=== PATIENT | male | born 1950 | race Caucasian/White ===

== ENCOUNTER 2019-12-21 12:06 | Outpatient (REF) | payer MEDICARE, SELFPAY | END 2019-12-21 12:07 | disposition home or self-care (01) | LOC: HO.WFDLDS 12:06 | PROVIDERS: Visit Provider Internal Medicine | DX: Z20.828 Contact with and (suspected) exposure to other viral communicable diseases (principal) | CPT/HCPCS: 87635 ==

== ENCOUNTER 2020-11-03 08:46 | Outpatient (REF) | payer MEDICARE, SELFPAY ==
[2020-11-03 10:58] LABS: MANUAL DIFF FLAG NO
[2020-11-03 11:05] LABS: Basophils Percent Auto 0.5 % (0-2); Eosinophils Absolute Auto 0.2 X10*3/uL (0.0-0.4); Eosinophils Percent Auto 3.3 % (0-4); Hematocrit 37.7 % (42-52); Hemoglobin 13.2 g/dl (14.0-18.0); Imm Gran Abs Auto 0.01 X10*3/uL (0.00-0.03); Imm Gran Pct Auto 0.2 % (0.0-0.4); Lymphocytes Absolute Auto 2.4 X10*3/uL (1.2-4.9); Lymphocytes Percent Auto 41.4 % (20-40); Mean Corpuscular Hemoglobin 31.1 pg (27.0-33.0); Mean Corpuscular Volume 88.7 fL (80-98); Mean Platelet Volume 10.7 fL (9.4-12.4); Monocytes Absolute Auto 0.4 X10*3/uL (0.1-1.2); Monocytes Percent Auto 6.3 % (2-11); Neutrophils Absolute Auto 2.7 X10*3/uL (2.0-8.3); Neutrophils Percent Auto 48.3 % (45-73); Platelet Count 182 X10*3/uL (160-400); Red Blood Count 4.25 X10*6/uL (4.60-5.80); Red Cell Distribution Width 13.7 % (11.0-16.0); White Blood Count 5.7 X10*3/uL (4.8-10.8)
[2020-11-03 11:09] LABS: Estimated Average Glucose 120 mg/dL; Hemoglobin A1c % 5.8 %
[2020-11-03 11:33] LABS: Alanine Aminotransferase 20 U/L (0-40); Albumin Level 4.3 g/dL (3.5-5.0); Alkaline Phosphatase 75 U/L (39-117); Anion Gap 11 (12-20); Aspartate Amino Transferase 21 U/L (5-37); Blood Urea Nitrogen 18 mg/dL (9-16); Calcium 9.6 mg/dL (8.4-10.2); Carbon Dioxide 25 mmol/L (22-29); Chloride 108 mmol/L (96-108); Estimated Glomerular Filt Rate > 60; Glucose Random 118 mg/dL (60-115); Potassium 4.6 mmol/L (3.3-5.1); Sodium 139 mmol/L (135-145); Total Protein 6.7 g/dL (6.5-8.0)
[2020-11-03 11:47] LABS: HIV AB/AG Nonreactive (Nonreactive); HIV Num 1 0.06 S/CO (0.00-0.99)
[2020-11-03 11:55] LABS: Prostate Specific Antigen Scr 0.31 ng/mL (<0.05-4.0); TSH reflex Free T4 0.86 uIU/mL (0.32-4.0)
[2020-11-04 04:54] LABS: Syphilis Screen Nonreactive (Nonreactive)
== END 2020-11-03 08:47 | disposition home or self-care (01) ==
LOC: HO.WFDLDS 08:46
PROVIDERS: Visit Provider Family Medicine
DX: Z00.00 Encounter for general adult medical examination without abnormal findings (principal); Z12.5 Encounter for screening for malignant neoplasm of prostate; Z11.4 Encounter for screening for human immunodeficiency virus [HIV]; R41.3 Other amnesia; R42 Dizziness and giddiness
CPT/HCPCS: 36415; 80053; 83036; 84153; 84443; 85025; 86780; 87389

== ENCOUNTER 2020-11-25 14:32 | Outpatient (REF) | payer MEDICARE, SELFPAY | END 2020-11-25 14:33 | disposition home or self-care (01) | LOC: HO.LNP 14:32 | PROVIDERS: Visit Provider Family Medicine | DX: Z20.822 Contact with and (suspected) exposure to COVID-19 (principal) | CPT/HCPCS: U0003; U0005 ==

== ENCOUNTER 2020-11-29 10:16 | Outpatient (REF) | payer MEDICARE, SELFPAY ==
[2020-11-29 13:58] LABS: MANUAL DIFF FLAG NO
[2020-11-29 14:05] LABS: Basophils Percent Auto 0.3 % (0-2); Eosinophils Absolute Auto 0.2 X10*3/uL (0.0-0.4); Eosinophils Percent Auto 3.1 % (0-4); Hematocrit 35.9 % (42-52); Hemoglobin 12.7 g/dl (14.0-18.0); Imm Gran Abs Auto 0.02 X10*3/uL (0.00-0.03); Imm Gran Pct Auto 0.3 % (0.0-0.4); Lymphocytes Absolute Auto 2.3 X10*3/uL (1.2-4.9); Lymphocytes Percent Auto 37.4 % (20-40); Mean Corpuscular HGB Conc 35.4 g/dl (31.0-36.0); Mean Corpuscular Hemoglobin 32.2 pg (27.0-33.0); Mean Corpuscular Volume 90.9 fL (80-98); Mean Platelet Volume 10.6 fL (9.4-12.4); Monocytes Absolute Auto 0.5 X10*3/uL (0.1-1.2); Monocytes Percent Auto 7.6 % (2-11); Neutrophils Absolute Auto 3.1 X10*3/uL (2.0-8.3); Neutrophils Percent Auto 51.3 % (45-73); Platelet Count 172 X10*3/uL (160-400); Red Blood Count 3.95 X10*6/uL (4.60-5.80); Red Cell Distribution Width 14.3 % (11.0-16.0); White Blood Count 6.1 X10*3/uL (4.8-10.8)
[2020-11-29 14:27] LABS: Anion Gap 12 (12-20); Blood Urea Nitrogen 15 mg/dL (9-16); Calcium 9.4 mg/dL (8.4-10.2); Carbon Dioxide 25 mmol/L (22-29); Chloride 108 mmol/L (96-108); Estimated Glomerular Filt Rate > 60; Glucose Random 120 mg/dL (60-115); Iron 92 mcg/dL (45-160); Percent Iron Saturation 22 % (15-50); Potassium 4.2 mmol/L (3.3-5.1); Sodium 141 mmol/L (135-145); Total Iron Binding Capacity 409 mcg/dL (228-428); Unsaturated Iron Binding 317 ug/dL
[2020-11-29 14:48] LABS: Ferritin 10 ng/mL (20-250)
[2020-11-29 14:55] LABS: Folate 18.3 ng/mL (> or = 4.0); Vitamin B12 543 pg/mL (200-900)
== END 2020-11-29 10:17 | disposition home or self-care (01) ==
LOC: HO.WFDLDS 10:16
PROVIDERS: Visit Provider Family Medicine
DX: Z00.00 Encounter for general adult medical examination without abnormal findings (principal); E53.8 Deficiency of other specified B group vitamins; D64.9 Anemia, unspecified
CPT/HCPCS: 36415; 80048; 82607; 82728; 82746; 83540; 85025

== ENCOUNTER 2021-01-09 12:43 | Outpatient (REF) | payer MEDICARE, SELFPAY ==
--- NOTE | ~2021-01-09 | CT_ITS ---
EXAMINATION: CT ABDOMEN AND PELVIS WITH CONTRAST CLINICAL INFORMATION: Hemolytic anemia. Question lymphoma. COMPARISON: None TECHNIQUE: Multidetector volumetric images were obtained from the superior aspect of the liver through the pubic symphysis following administration 85 mL of Omnipaque 350 intravenous contrast. Sagittal and coronal reformatted images were obtained on the technologist's workstation. Oral contrast: Yes This CT examination was performed using dose optimization techniques as appropriate, variously including the following: *Automated exposure control *Adjustment of mA and/or kV according to patient size (this includes techniques or standardized protocols for targeted exams where dose is matched to indication/reason for exam; i.e. extremities or head) *Use of iterative reconstruction technique DLP: 362 mGy-cm FINDINGS: LUNG BASES: There are cysts or emphysematous change in the posterior peripheral left lower lobe. The lung bases are otherwise unremarkable. LIVER, GALLBLADDER, AND BILIARY TREE: The liver is normal in size, shape, and attenuation. No focal hepatic lesion or biliary ductal dilatation is present. The gallbladder is unremarkable with no evidence of radiopaque gallstones, gallbladder wall thickening, or obvious pericholecystic inflammatory changes. PANCREAS: Unremarkable. SPLEEN: Unremarkable. ADRENAL GLANDS: Unremarkable. KIDNEYS AND URETERS: The kidneys are normal in size, shape, and attenuation. No hydronephrosis, hydroureter, or calculi seen. No perinephric stranding. BLADDER: Unremarkable. GASTROINTESTINAL TRACT: The small and large bowel are unremarkable. The appendix is unremarkable. ABDOMINAL WALL: No significant hernia is appreciated. LYMPH NODES: Normal. VASCULAR: Unremarkable. PELVIC VISCERA: Unremarkable. OSSEOUS STRUCTURES: There are degenerative changes of the spine and curvature of the lumbar spine to the left. There is a large lytic expansile lesion in the right iliac bone. This has a heterogeneous matrix and question some calcification. No associated soft tissue mass is seen. This measures 6 x 7 x 9 cm in transverse AP and longitudinal dimension. CT/CT abdomen pelvis w con IMPRESSION: No lymphadenopathy. Normal-size spleen. Large expansile lytic lesion in the right iliac bone suspicious for a neoplastic process. Primary bone neoplasm and myeloma, lymphoma and metastatic disease should be considered.
[2021-01-09] MEDS: iohexoL 350 MG/ML 100 ML INFUS..BTL 85 ML IV (15:43)
[2021-01-09] MEDS: Barium Sulfate Oral (Berry) 450 ML ORAL.SUSP 900 ML PO (15:44)
== END 2021-01-09 12:44 | disposition home or self-care (01) ==
LOC: HO.CT 12:43
PROVIDERS: PCP Family Medicine; Visit Provider Internal Medicine
DX: D64.9 Anemia, unspecified (principal); R63.4 Abnormal weight loss
CPT/HCPCS: 74177; Q9967

== ENCOUNTER 2021-01-13 12:30 | Outpatient (RCR) | payer MEDICARE, SELFPAY ==
[2020-12-09 13:16] VITALS: BP 108/72; PULSE 71; RESP 14; TEMP 36.3; O2SAT 98; BMI 27.0
--- NOTE | 2020-12-09 13:53 | PM.HEMONCCN ---
Subjective - Subjective Chief complaint: Anemia Patient: new to practice Consult date: 12/09/20 Primary Care Provider: Joshua Nicole MD HPI - Consult Narrative Reason for consult: Normocytic anemia Narrative: Jim Giraldo is a 70 year old male referred for evaluation of normocytic anemia. His main complaint has been postural dizziness and some fatigue. His blood pressure medications were adjusted and his dizziness improved but he continues to have fatigue. Blood work in October revealed mild normocytic anemia with a hemoglobin of 13.2, this declined to 12.7 gram/dL in November. He reports no other symptoms such as exertional shortness of breath, change in bowel habits, hematochezia or melena. He did change his diet significantly, cut back on animal protein and lost about 15 lb in the last 6 months. His weight however has been stable in the last several weeks. He denies any fever, chills, infections or changes to his medications. He is up-to-date with cancer screening. He has a history of BPH and is on medication for this. Review of Systems - Constitutional Reports no additional constitutional complaints, Reports fatigue, Denies malaise, Denies night sweats, Denies poor appetite - Cardiovascular Reports no additional cardiovascular complaints - Respiratory Reports no additional respiratory complaints - Gastrointestinal Reports no additional gastrointestinal complaints, Denies black, tarry stools, Denies change in bowel habits, Denies change in stools - Genitourinary Genitourinary: Reports no additional male genitourinary complaints - Musculoskeletal Reports no additional musculoskeletal complaints [facility] Family History: Family History (Last Updated 10/28/20 @ 10:50 by Fabienne Sol) Mother Mental health disorder Surgical History: Surgical History (Last Updated 10/28/20 @ 10:49 by Fabienne Sol) History of tonsillectomy Social History: Social History (Last Updated 12/09/20 @ 13:20 by Jessica Herrera) Living Situation History: Housing: House Alcohol History: Alcohol intake: current Alcohol History Details: Alcohol intake frequency: a few times a month Tobacco History: Patient Tobacco Use Status: Former Tobacco user Tobacco use type: Cigarette Cigarette Packs Per Day: 1 Smoke Quit Date: 2011 Substance Use History: Use of substances other than those prescribed or required for medical reasons: No Occupation Assessmet: Current occupational status: other 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 Home Medications and Allergies Home Medications Medication Instructions Recorded Confirmed Type aspirin 81 mg tablet,delayed 81 mg PO DAILY 01/07/20 12/09/20 History release (Adult Low Dose Aspirin) egooeuwm-kdu-mqiiy acid 300 1 tab PO DAILY 01/07/20 12/09/20 History mcg-lycopene 600 mcg-lutein 300 mcg tablet (Centrum Silver Ultra Men's) cetirizine 10 mg tablet (Zyrtec) 10 mg PO DAILY 12/09/20 12/09/20 History Allergies Allergy/AdvReac Type Severity Reaction Status Date / Time penicillamine Allergy Intermediate respiratory Verified 12/09/20 13:21 as child Physical Exam Vital signs: Vital Signs Temp 97.4 F 12/09/20 13:16 Pulse 71 12/09/20 13:16 Resp 14 12/09/20 13:16 BP 108/72 12/09/20 13:16 Pulse Ox 98 12/09/20 13:16 Intake & Output 12/08/20 12/09/20 12/09/20 18:59 06:59 18:59 Other: Weight 75.9 kg [place] Weight in Grams 00226 Weight 75.9 kg - Constitutional Present: no acute distress, average body habitus - Routine HEENT Exam Head: Present: normal inspection Eye: Present: PERRL - Routine Neck Exam Present: supple. Absent: lymphadenopathy, thyromegaly, swelling - Routine Respiratory Exam Present: CTAB - Routine Cardiovascular Exam Cardiovascular: Present: RRR, S1, S2 - Routine Abdominal Exam Present: normal bowel sounds, soft. Absent: organomegaly - Routine Extremities Exam Present: calf tenderness, normal inspection, pulses intact. Absent: pedal edema Hem/Onc Consult Result - Labs CBC & Chem 7: 12/09/20 13:59 Assessment and Plan Patient Active problem list reviewed?: Yes (1) Anemia Status: Acute Assessment and plan: 1. This is a pleasant 70-year-old male with mild normocytic anemia. His ferritin stores are decreased but he has normal iron studies. There is no signs/symptoms of blood loss. He has normal vitamin B12/folate levels, normal kidney and liver functions. Although he does consume alcohol it is not on a daily basis. No recent infections or use of antibiotics. No evidence of acute hemolysis. The only change has been significant dietary modifications and intentional weight loss of 10-15 lb in the last 6 months. His only symptom is mild fatigue. Hematological workup including serum protein electrophoresis, immunofixation, haptoglobin is pending. He takes pantoprazole chronically which can interfere with iron absorption. This could explain his low iron stores, as absorption can be impaired. Other possible diagnosis such as myelodysplastic syndrome, lymphoma and plasma cell dyscrasia in the differential diagnosis. If his repeat iron studies are low, trial of oral iron supplementation can be tried. Further recommendations to follow, I thank you very much for this consultation. Results will be discussed with the patient. - Time Spent With Patient Time Spent with Patient (in minutes): 35
[2020-12-09 14:03] LABS: MANUAL DIFF FLAG NO
[2020-12-09 14:15] LABS: Basophils Percent Auto 0.3 % (0-2); Eosinophils Absolute Auto 0.2 X10*3/uL (0.0-0.4); Eosinophils Percent Auto 2.5 % (0-4); Hematocrit 37.7 % (42-52); Hemoglobin 12.5 g/dl (14.0-18.0); Imm Gran Abs Auto 0.01 X10*3/uL (0.00-0.03); Imm Gran Pct Auto 0.2 % (0.0-0.4); Immature Retic Fraction 5.8 % (2.3-13.4); Lymphocytes Absolute Auto 1.4 X10*3/uL (1.2-4.9); Mean Corpuscular HGB Conc 33.2 g/dl (31.0-36.0); Mean Corpuscular Hemoglobin 29.2 pg (27.0-33.0); Mean Corpuscular Volume 88.1 fL (80-98); Mean Platelet Volume 9.6 fL (9.4-12.4); Monocytes Absolute Auto 0.5 X10*3/uL (0.1-1.2); Monocytes Percent Auto 7.8 % (2-11); Neutrophils Absolute Auto 4.3 X10*3/uL (2.0-8.3); Neutrophils Percent Auto 67.2 % (45-73); Platelet Count 164 X10*3/uL (160-400); Red Blood Count 4.28 X10*6/uL (4.60-5.80); Red Cell Distribution Width 13.8 % (11.0-16.0); Retic HGB Equivalent 33.2 pg (30.0-35.0); Reticulocyte Percent 0.9 % (0.5-1.8); Reticulocytes Absolute 0.039 X10*6/uL (0.026-0.095); White Blood Count 6.4 X10*3/uL (4.8-10.8)
[2020-12-09 14:30] LABS: Lactate Dehydrogenase 155 U/L (118-273)
--- NOTE | 2020-12-09 15:12 | MHC.HEMONCMA ---
Patient came in for a consult today, states that he is feeling okay. Clinical summary was reviewed and updated. Patient had labs and will have a telehealth appt in 2 weeks.
[2020-12-09 15:25] LABS: Iron 63 mcg/dL (45-160); Percent Iron Saturation 16 % (15-50); Total Iron Binding Capacity 391 mcg/dL (228-428); Unsaturated Iron Binding 328 ug/dL
[2020-12-12 13:51] LABS: Haptoglobin 16 mg/dL (43-212)
[2020-12-12 23:17] LABS: Prot Elec - Albumin 4.3 g/dL (3.8-4.8); Prot Elec - Alpha1 0.2 g/dL (0.2-0.3); Prot Elec - Alpha2 0.4 g/dL (0.5-0.9); Prot Elec - Beta 1 0.5 g/dL (0.4-0.6); Prot Elec - Beta 2 0.2 g/dL (0.2-0.5); Prot Elec - Gamma 0.9 g/dL (0.8-1.7); Prot Elec - Total Protein 6.4 g/dL (6.1-8.1)
[2020-12-13 11:47] LABS: IgA 98 mg/dL (70-320); IgG 1017 mg/dL (600-1540); IgM 193 mg/dL (50-300)
--- NOTE | 2020-12-27 10:24 | HO.HEMONCTE1 ---
Hem/Onc Clinic Telehealth - Telehealth Location of Provider rendering services: Office Location of Patient: Home Patient Identification confirmed using: Name, : Yes Telehealth Method: Telephone Patient verbally consented to treatment: Yes Patient verbally consented to billing insurance company: Yes Medical Summary - Medical Summary Date of Service: 12/27/20 Chief complaint: Scheduled follow-up Medical Summary: Diagnosis: Anemia Hematological workup in November revealed decreased haptoglobin but normal LDH and bilirubin levels. Mild normocytic anemia hemoglobin around 12.5 gram/dL. He had changed his diet significantly, cut back on animal protein and lost about 15 lb in 6 months prior to presentation. Interval History Interval history: This is scheduled tele visit for patient, to discuss results of blood work from his last visit. He continues to feel tired but denies any new problems. Home Medications and Allergies Home Medications Medication Instructions Recorded Confirmed Type aspirin 81 mg tablet,delayed 81 mg PO DAILY 01/07/20 12/27/20 History release (Adult Low Dose Aspirin) ebclrbpk-pjs-wvxop acid 300 1 tab PO DAILY 01/07/20 12/27/20 History mcg-lycopene 600 mcg-lutein 300 mcg tablet (Centrum Silver Ultra Men's) cetirizine 10 mg tablet (Zyrtec) 10 mg PO DAILY 12/09/20 12/27/20 History losartan 25 mg tablet 25 mg PO DAILY 12/27/20 12/27/20 History Allergies Allergy/AdvReac Type Severity Reaction Status Date / Time penicillamine Allergy Intermediate respiratory Verified 12/27/20 10:08 as child Exam Vital signs: Vital Signs Temp 97.4 F 12/09/20 13:16 Pulse 71 12/09/20 13:16 Resp 14 12/09/20 13:16 BP 108/72 12/09/20 13:16 Pulse Ox 98 12/09/20 13:16 Weight 75.9 kg Body Mass Index 27.0 Narrative: Patient not examined today - Constitutional Present: no acute distress, average body habitus - Routine HEENT Exam Head: Present: normal inspection - Routine Respiratory Exam Present: CTAB - Routine Cardiovascular Exam Cardiovascular: Present: RRR, S1, S2 - Routine Abdominal Exam Present: normal bowel sounds, soft. Absent: organomegaly - Routine Extremities Exam Present: calf tenderness, normal inspection, pulses intact. Absent: pedal edema Data - Labs CBC & Chem 7: 12/09/20 13:59 Labs: 10/01/21 13:59 Complete Blood Count Auto Diff Routine Haptoglobin Routine IRON PROFILE Routine Immunofixation Pnl, Serum Routine Lactate Dehydrogenase Routine Protein Electrophoresis, Serum Routine Reticulocyte Count Routine 12/09/20 15:13 Add Laboratory Test Routine Laboratory Last Values WBC 6.4 X10*3/uL (4.8-10.8) 12/09/20 13:59 RBC 4.28 X10*6/uL (4.60-5.80) L 12/09/20 13:59 Hgb 12.5 g/dl (14.0-18.0) L 12/09/20 13:59 Hct 37.7 % (42-52) L 12/09/20 13:59 MCV 88.1 fL (80-98) 12/09/20 13:59 MCH 29.2 pg (27.0-33.0) 12/09/20 13:59 MCHC 33.2 g/dl (31.0-36.0) 12/09/20 13:59 RDW 13.8 % (11.0-16.0) 12/09/20 13:59 Plt Count 164 X10*3/uL (160-400) 12/09/20 13:59 MPV 9.6 fL (9.4-12.4) 12/09/20 13:59 Immature Gran % (Auto) 0.2 % (0.0-0.4) 12/09/20 13:59 Neut % (Auto) 67.2 % (45-73) 12/09/20 13:59 Lymph % (Auto) 22.0 % (20-40) 12/09/20 13:59 [place] % (Auto) 7.8 % (2-11) 12/09/20 13:59 Eos % (Auto) 2.5 % (0-4) 12/09/20 13:59 Baso % (Auto) 0.3 % (0-2) 12/09/20 13:59 Lymph # (Auto) 1.4 X10*3/uL (1.2-4.9) 12/09/20 13:59 [place] # (Auto) 0.5 X10*3/uL (0.1-1.2) 12/09/20 13:59 Eos # (Auto) 0.2 X10*3/uL (0.0-0.4) 12/09/20 13:59 Baso # (Auto) 0.0 X10*3/uL (0.0-0.2) 12/09/20 13:59 Abs Immat Gran (auto) 0.01 X10*3/uL (0.00-0.03) 12/09/20 13:59 Absolute Neuts (auto) 4.3 X10*3/uL (2.0-8.3) 12/09/20 13:59 Absolute Nucleated RBC 0.000 X10*3/uL (0.0-0.012) 12/09/20 13:59 Nucleated RBC % (auto) 0.0 /100WBC (0.0-0.2) 12/09/20 13:59 Absolute Retic 0.039 X10*6/uL (0.026-0.095) 12/09/20 13:59 Percent Retic 0.9 % (0.5-1.8) 12/09/20 13:59 Immature Retic Fraction 5.8 % (2.3-13.4) 12/09/20 13:59 Retic Hgb Equivalent 33.2 pg (30.0-35.0) 12/09/20 13:59 Haptoglobin 16 mg/dL (43-212) L 12/09/20 13:59 Iron 63 mcg/dL (45-160) 12/09/20 13:59 TIBC 391 mcg/dL (228-428) 12/09/20 13:59 % Saturation 16 % (15-50) 12/09/20 13:59 Unsat Iron Binding 328 ug/dL 12/09/20 13:59 Lactate Dehydrogenase 155 U/L (118-273) 12/09/20 13:59 Total Protein (PEP) 6.4 g/dL (6.1-8.1) 12/09/20 13:59 Albumin (PEP) 4.3 g/dL (3.8-4.8) 12/09/20 13:59 Zgffe-1-Pivasqtqe 0.2 g/dL (0.2-0.3) 12/09/20 13:59 Cujxl-2-Ryottihno 0.4 g/dL (0.5-0.9) L 12/09/20 13:59 Phbc-4-Thmjhiyj 0.5 g/dL (0.4-0.6) 12/09/20 13:59 Baww-1-Glbizhlc 0.2 g/dL (0.2-0.5) 12/09/20 13:59 Gamma Globulins 0.9 g/dL (0.8-1.7) 12/09/20 13:59 Abnorm Protein Band 1 TNP 12/09/20 13:59 Abnorm Protein Band 2 TNP 12/09/20 13:59 Abnorm Protein Band 3 TNP 12/09/20 13:59 PEP Interpretation SEE NOTE 12/09/20 13:59 IgG Total 1017 mg/dL (600-1540) 12/09/20 13:59 IgA Total 98 mg/dL (70-320) 12/09/20 13:59 IgM 193 mg/dL (50-300) 12/09/20 13:59 RODRI Interpretation SEE NOTE 12/09/20 13:59 Assessment and Plan Patient Active problem list reviewed?: Yes (1) Anemia Status: Acute Assessment and plan: 1. This is a pleasant 70-year-old male with mild normocytic anemia. Hematological workup was all normal except for mildly reduced haptoglobin at 16 mg/dL. He has normal bilirubin level and LDH, probably mild hemolysis of unclear etiology. Submit Delfin test, flow cytometry for PNH, hepatitis serologies. HIV nonreactive. Acute infection, antibiotics/medications have been ruled out. Other possible diagnosis such as myelodysplastic syndrome and lymphoma are in the differential diagnosis. CT abdomen/pelvis with contrast has been ordered to look for hepatosplenomegaly or evidence of lymphoma. Follow-up in 2 weeks. - Time Spent With Patient Time Spent with Patient (in minutes): 15
--- NOTE | 2020-12-27 12:24 | MHC.HEMONCMA ---
Patient had a telehealth appt with the doctor, states he is doing well. Clinical summary was reviewed and updated. Patient will come in tomorrow for labs. Dr Walker ordered CTs for the patient which have been placed in order credit risk management director. I am not sure when he will come back for a follow up.
[2020-12-28 11:05] LABS: MANUAL DIFF FLAG NO
[2020-12-28 11:12] LABS: Basophils Percent Auto 0.3 % (0-2); Eosinophils Absolute Auto 0.2 X10*3/uL (0.0-0.4); Eosinophils Percent Auto 3.4 % (0-4); Hematocrit 37.3 % (42-52); Hemoglobin 12.8 g/dl (14.0-18.0); Imm Gran Abs Auto 0.02 X10*3/uL (0.00-0.03); Imm Gran Pct Auto 0.3 % (0.0-0.4); Lymphocytes Absolute Auto 1.8 X10*3/uL (1.2-4.9); Lymphocytes Percent Auto 30.1 % (20-40); Mean Corpuscular HGB Conc 34.3 g/dl (31.0-36.0); Mean Corpuscular Hemoglobin 29.7 pg (27.0-33.0); Mean Corpuscular Volume 86.5 fL (80-98); Mean Platelet Volume 9.7 fL (9.4-12.4); Monocytes Absolute Auto 0.4 X10*3/uL (0.1-1.2); Neutrophils Absolute Auto 3.4 X10*3/uL (2.0-8.3); Neutrophils Percent Auto 58.9 % (45-73); Platelet Count 173 X10*3/uL (160-400); Red Blood Count 4.31 X10*6/uL (4.60-5.80); Red Cell Distribution Width 13.4 % (11.0-16.0); White Blood Count 5.9 X10*3/uL (4.8-10.8)
[2020-12-28 11:37] LABS: Alanine Aminotransferase 20 U/L (0-40); Albumin Level 4.3 g/dL (3.5-5.0); Alkaline Phosphatase 80 U/L (39-117); Anion Gap 11 (12-20); Aspartate Amino Transferase 21 U/L (5-37); Bilirubin Total 1.1 mg/dL (0.0-1.0); Blood Urea Nitrogen 19 mg/dL (9-16); Calcium 9.5 mg/dL (8.4-10.2); Carbon Dioxide 27 mmol/L (22-29); Chloride 106 mmol/L (96-108); Creatinine Clr Calc Pharmacy 65.9; Estimated Glomerular Filt Rate > 60; Glucose Random 98 mg/dL (60-115); Iron 81 mcg/dL (45-160); Percent Iron Saturation 20 % (15-50); Potassium 4.7 mmol/L (3.3-5.1); Sodium 139 mmol/L (135-145); Total Iron Binding Capacity 400 mcg/dL (228-428); Total Protein 6.6 g/dL (6.5-8.0); Unsaturated Iron Binding 319 ug/dL
[2021-01-01 14:56] LABS: Glucose-6-Phosphate Dehydrogen 15.8 U/g Hgb (7.0-20.5)
[2021-01-13 12:05] VITALS: BMI 26.7
[2021-01-13 12:06] VITALS: PULSE 88; RESP 18; TEMP 36.2; O2SAT 97
--- NOTE | 2021-01-13 13:24 | P.PNHO_ITS ---
Medical Summary - Medical Summary Medical Summary: Diagnosis: Anemia Hematological workup in November revealed decreased haptoglobin but normal LDH and bilirubin levels. Mild normocytic anemia hemoglobin around 12.5 gram/dL. He had changed his diet significantly, cut back on animal protein and lost about 15 lb in 6 months prior to presentation. Interval History Interval history: Patient is here in follow-up, to discuss results of recent imaging study. He is accompanied by his significant other. They have both looked up report on [facility] and they are anxious about diagnosis and further management. Patient denies any significant pain in his right hip but he does walk 5-6 miles on a daily basis. He says he has occasional discomfort which comes and goes, he at tributes this to muscular pain. He is planning to travel to [place] on January 24. He has not been taking any aspirin for several months. He denies any acute complaints today such as chest pain, shortness of breath, fever or chills. Review of Systems - Constitutional Reports as per HPI, Reports no additional constitutional complaints - Cardiovascular Reports no additional cardiovascular complaints - Respiratory Reports no additional respiratory complaints - Gastrointestinal Reports no additional gastrointestinal complaints [facility] Family History: Family History (Last Reviewed 12/28/20 @ 09:48 by Zinc Ahead) Mother Mental health disorder Surgical History: Surgical History (Last Reviewed 12/28/20 @ 09:48 by Zinc Ahead) History of tonsillectomy Social History: Social History (Last Reviewed 12/28/20 @ 09:48 by Zinc Ahead) Living Situation History: Housing: House Alcohol History: Alcohol intake: current Alcohol History Details: Alcohol intake frequency: a few times a month Tobacco History: Patient Tobacco Use Status: Former Tobacco user Tobacco use type: Cigarette Cigarette Packs Per Day: 1 Smoke Quit Date: 2011 Substance Use History: Use of substances other than those prescribed or required for medical reasons : No Occupation Assessmet: Current occupational status: other 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 Home Medications and Allergies Home Medications Medication Instructions Recorded Confirmed Type aspirin 81 mg tablet,delayed 81 mg PO DAILY 01/07/20 12/27/20 History release (Adult Low Dose Aspirin) stlrhwqd-uwc-xgyon acid 300 1 tab PO DAILY 01/07/20 12/27/20 History mcg-lycopene 600 mcg-lutein 300 mcg tablet (Centrum Silver Ultra Men's) cetirizine 10 mg tablet (Zyrtec) 10 mg PO DAILY 12/09/20 12/27/20 History losartan 25 mg tablet 25 mg PO DAILY 12/27/20 12/27/20 History Allergies Allergy/AdvReac Type Severity Reaction Status Date / Time penicillamine Allergy Intermediate respiratory Verified 12/28/20 09:45 as child Exam Vital signs: Vital Signs Temp 97.2 F 01/13/21 12:06 Pulse 88 01/13/21 12:06 Resp 18 01/13/21 12:06 BP 108/72 12/09/20 13:16 Pulse Ox 97 01/13/21 12:06 Intake & Output 01/12/21 01/13/21 01/13/21 18:59 06:59 18:59 Other: Weight 75.2 kg [place] Weight in Grams 78770 Weight 75.2 kg Body Mass Index 26.7 - Constitutional Present: no acute distress, average body habitus - Routine HEENT Exam Head: Present: normal inspection - Routine Respiratory Exam Present: CTAB - Routine Cardiovascular Exam Cardiovascular: Present: RRR, S1, S2 - Routine Abdominal Exam Present: normal bowel sounds, soft. Absent: organomegaly - Routine Extremities Exam Present: calf tenderness, normal inspection, pulses intact. Absent: pedal edema Data - Labs CBC & Chem 7: 12/28/20 10:57 12/28/20 10:57 Labs: 12/09/20 13:59 Complete Blood Count Auto Diff Routine Haptoglobin Routine IRON PROFILE Routine Immunofixation Pnl, Serum Routine Lactate Dehydrogenase Routine Protein Electrophoresis, Serum Routine Reticulocyte Count Routine 12/09/20 15:13 Add Laboratory Test Routine Laboratory Last Values WBC 6.4 X10*3/uL (4.8-10.8) 12/09/20 13:59 RBC 4.28 X10*6/uL (4.60-5.80) L 12/09/20 13:59 Hgb 12.5 g/dl (14.0-18.0) L 12/09/20 13:59 Hct 37.7 % (42-52) L 12/09/20 13:59 MCV 88.1 fL (80-98) 12/09/20 13:59 MCH 29.2 pg (27.0-33.0) 12/09/20 13:59 MCHC 33.2 g/dl (31.0-36.0) 12/09/20 13:59 RDW 13.8 % (11.0-16.0) 12/09/20 13:59 Plt Count 164 X10*3/uL (160-400) 12/09/20 13:59 MPV 9.6 fL (9.4-12.4) 12/09/20 13:59 Immature Gran % (Auto) 0.2 % (0.0-0.4) 12/09/20 13:59 Neut % (Auto) 67.2 % (45-73) 12/09/20 13:59 Lymph % (Auto) 22.0 % (20-40) 12/09/20 13:59 [place] % (Auto) 7.8 % (2-11) 12/09/20 13:59 Eos % (Auto) 2.5 % (0-4) 12/09/20 13:59 Baso % (Auto) 0.3 % (0-2) 12/09/20 13:59 Lymph # (Auto) 1.4 X10*3/uL (1.2-4.9) 12/09/20 13:59 [place] # (Auto) 0.5 X10*3/uL (0.1-1.2) 12/09/20 13:59 Eos # (Auto) 0.2 X10*3/uL (0.0-0.4) 12/09/20 13:59 Baso # (Auto) 0.0 X10*3/uL (0.0-0.2) 12/09/20 13:59 Abs Immat Gran (auto) 0.01 X10*3/uL (0.00-0.03) 12/09/20 13:59 Absolute Neuts (auto) 4.3 X10*3/uL (2.0-8.3) 12/09/20 13:59 Absolute Nucleated RBC 0.000 X10*3/uL (0.0-0.012) 12/09/20 13:59 Nucleated RBC % (auto) 0.0 /100WBC (0.0-0.2) 12/09/20 13:59 Absolute Retic 0.039 X10*6/uL (0.026-0.095) 12/09/20 13:59 Percent Retic 0.9 % (0.5-1.8) 12/09/20 13:59 Immature Retic Fraction 5.8 % (2.3-13.4) 12/09/20 13:59 Retic Hgb Equivalent 33.2 pg (30.0-35.0) 12/09/20 13:59 Haptoglobin 16 mg/dL (43-212) L 12/09/20 13:59 Iron 63 mcg/dL (45-160) 12/09/20 13:59 TIBC 391 mcg/dL (228-428) 12/09/20 13:59 % Saturation 16 % (15-50) 12/09/20 13:59 Unsat Iron Binding 328 ug/dL 12/09/20 13:59 Lactate Dehydrogenase 155 U/L (118-273) 12/09/20 13:59 Total Protein (PEP) 6.4 g/dL (6.1-8.1) 12/09/20 13:59 Albumin (PEP) 4.3 g/dL (3.8-4.8) 12/09/20 13:59 Lxvmx-6-Arywsgqls 0.2 g/dL (0.2-0.3) 12/09/20 13:59 Gucht-3-Gcmqbceib 0.4 g/dL (0.5-0.9) L 12/09/20 13:59 Nxvg-2-Ljflsrfn 0.5 g/dL (0.4-0.6) 12/09/20 13:59 Jsdx-1-Kaqfflxi 0.2 g/dL (0.2-0.5) 12/09/20 13:59 Gamma Globulins 0.9 g/dL (0.8-1.7) 12/09/20 13:59 Abnorm Protein Band 1 TNP 12/09/20 13:59 Abnorm Protein Band 2 TNP 12/09/20 13:59 Abnorm Protein Band 3 TNP 12/09/20 13:59 PEP Interpretation SEE NOTE 12/09/20 13:59 IgG Total 1017 mg/dL (600-1540) 12/09/20 13:59 IgA Total 98 mg/dL (70-320) 12/09/20 13:59 IgM 193 mg/dL (50-300) 12/09/20 13:59 RODRI Interpretation SEE NOTE 12/09/20 13:59 Assessment and Plan Patient Active problem list reviewed?: Yes (1) Anemia Status: Acute Assessment and plan: 1. This is a pleasant 70-year-old male with mild normocytic anemia, large lytic lesion in right pelvis. 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 Normal serum protein electrophoresis and serum immunofixation. Blood flow cytometry for PNH could not be performed because of low cell viability. CT abdomen/pelvis with contrast performed 01/09/2021 showed large expansile lytic lesion in right iliac bone suspicious for neoplastic process, measuring 6 x 7 x 9 cm. Differential diagnosis includes lymphoma, plasmacytoma as well as metastatic bone lesion from another primary such as lung cancer. He is a past heavy smoker, CT chest with contrast has been ordered. Biopsy of lytic lesion as well as concurrent bone marrow biopsy with intervention Radiology is being scheduled. I discussed all of the above possible diagnosis as well as further management with patient and significant other. He was asked to avoid excess walking. Follow-up in 2 weeks. - Time Spent With Patient Time Spent with Patient (in minutes): 25
--- NOTE | 2021-01-13 14:10 | HO.HEMONCPA ---
PER REP PA IS REQUIRED FOR CT BIOPSY , I FAXED OVER RECENT NOTES . AWAITING APPROVAL. CASE#[id number] REFERENCE- VIRLINDA 01/13/21 AT 2:04 PM .
--- NOTE | 2021-01-17 14:38 | HO.HEMONCPA ---
CT BIOPSY WAS APPROVED . AUTH#[id number] DOS;01/16/21TO 07/15/21
--- NOTE | 2021-01-18 09:24 | MHC.HEMONC ---
Per Jessica, CT bx of right iliac bone is in pending and has PA. Pt called and I updated him on this information.
--- NOTE | 2021-01-18 14:22 | MHC.HEMONC ---
CT bx of hip ordered and is to be done tomorrow at 1:30. I called pt. He has been off [facility] for over a week. He is aware that he will be called tinight with prep info and arrival time. 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 He is also inquiring about his CT of chest. I will have Jessica VASQUEZ get back to him re: details of that. He is wondering if he could have that tomorrow as well.
--- NOTE | 2021-01-23 12:48 | MHC.HEMONC ---
[place] to call pt with f/u next week as we don't have bone bx report yet (he was supposed to come in tomorrow). He is aware and I also told him Dr Walker said his chest CT was WNL.
--- NOTE | 2021-01-26 15:32 | MHC.HEMONC ---
I spoke with pt. He had already seen bx report on portal. He is aware that it did not show anything concerning but that it also doesn't explain his bone lesion. I will have Dr Walker call him tomorrow as she is not in the office today.
--- NOTE | 2021-02-01 11:40 | MHC.HEMONCMA ---
Patient is scheduled for whole body scan on 02/07/2021 at 11am. Patient aware.
--- NOTE | 2021-02-08 12:16 | PM.HEMONCPN ---
Medical Summary - Medical Summary Medical Summary: Diagnosis: Anemia Hematological workup in November revealed decreased haptoglobin but normal LDH and bilirubin levels. Mild normocytic anemia hemoglobin around 12.5 gram/dL. He had changed his diet significantly, cut back on animal protein and lost about 15 lb in 6 months prior to presentation. Interval History Interval history: Patient is here in follow-up, to discuss results of recent imaging study. He is accompanied by his significant other. They have both looked up report on [facility] and they are anxious about diagnosis and further management. Patient denies any significant pain in his right hip but he does walk 5-6 miles on a daily basis. He says he has occasional discomfort which comes and goes, he attributes this to muscular pain. He is planning to travel to [place] on January 24. He has not been taking any aspirin for several months. He denies any acute complaints today such as chest pain, shortness of breath, fever or chills. [facility] Family History: Family History (Last Reviewed 12/28/20 @ 09:48 by [email or web address]) Mother Mental health disorder Surgical History: Surgical History (Last Reviewed 12/28/20 @ 09:48 by [email or web address]) History of tonsillectomy Social History: Social History (Last Reviewed 12/28/20 @ 09:48 by [email or web address]) Living Situation History: Housing: House Alcohol History: Alcohol intake: current Alcohol History Details: Alcohol intake frequency: a few times a month Tobacco History: Patient Tobacco Use Status: Former Tobacco user Tobacco use type: Cigarette Cigarette Packs Per Day: 1 Smoke Quit Date: 2011 Occupation Assessmet: Current occupational status: other 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 Home Medications and Allergies Home Medications Medication Instructions Recorded Confirmed Type aspirin 81 mg tablet,delayed 81 mg PO DAILY 01/07/20 12/27/20 History release (Adult Low Dose Aspirin) ropumwbd-omk-mlfdp acid 300 1 tab PO DAILY 01/07/20 12/27/20 History mcg-lycopene 600 mcg-lutein 300 mcg tablet (Centrum Silver Ultra Men's) cetirizine 10 mg tablet (Zyrtec) 10 mg PO DAILY 12/09/20 12/27/20 History losartan 25 mg tablet 25 mg PO DAILY 12/27/20 12/27/20 History Allergies Allergy/AdvReac Type Severity Reaction Status Date / Time penicillamine Allergy Intermediate respiratory Verified 12/28/20 09:45 as child Penicillins Allergy Respiratory Verified 01/19/21 13:46 problems as Exam Vital signs: Vital Signs Temp 97.2 F 01/13/21 12:06 Pulse 88 01/13/21 12:06 Resp 18 01/13/21 12:06 BP 108/72 12/09/20 13:16 Pulse Ox 97 01/13/21 12:06 Weight 75.2 kg BMI result Body Mass Index 26.7 - Constitutional Present: no acute distress, average body habitus - Routine HEENT Exam Head: Present: normal inspection - Routine Respiratory Exam Present: CTAB - Routine Cardiovascular Exam Cardiovascular: Present: RRR, S1, S2 - Routine Abdominal Exam Present: normal bowel sounds, soft. Absent: organomegaly - Routine Extremities Exam Present: calf tenderness, normal inspection, pulses intact. Absent: pedal edema Data - Labs CBC & Chem 7: 12/28/20 10:57 12/28/20 10:57 Assessment and Plan Patient Active problem list reviewed?: Yes (1) Anemia Status: Acute Assessment and plan: 1. This is a pleasant 70-year-old male with mild normocytic anemia, large lytic lesion in right pelvis. 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 Normal serum protein electrophoresis and serum immunofixation. Blood flow cytometry for PNH could not be performed because of low cell viability. CT abdomen/pelvis with contrast performed 01/09/2021 showed large expansile lytic lesion in right iliac bone suspicious for neoplastic process, measuring 6 x 7 x 9 cm. Differential diagnosis includes lymphoma, plasmacytoma as well as metastatic bone lesion from another primary such as lung cancer. He is a past heavy smoker, CT chest with contrast has been ordered. Biopsy of lytic lesion as well as concurrent bone marrow biopsy with intervention Radiology is being scheduled. I discussed all of the above possible diagnosis as well as further management with patient and significant other. He was asked to avoid excess walking. Follow-up in 2 weeks.
--- NOTE | 2021-02-08 12:20 | MHC.HEMONC ---
pt had Telehealth visit today with Dr Walker to review recent PET. Pt was relieved it came out good. Plan per Dr Walker.
--- NOTE | 2021-02-08 12:23 | HO.HEMONCTE1 ---
Hem[facility]Onc Clinic Telehealth - Telehealth Location of Provider rendering services: Office Location of Patient: Home Patient Identification confirmed using: Name, : Yes Telehealth Method: Telephone Patient verbally consented to treatment: Yes Patient verbally consented to billing insurance company: Yes Patient informed of any privacy concerns related to visit: Yes Medical Summary - Medical Summary Date of Service: 02/08/21 Chief complaint: follow-up to discuss results of imaging Medical Summary: Diagnosis: Anemia/lytic lesion in right pelvis Hematological workup in November revealed decreased haptoglobin but normal LDH and bilirubin levels. Mild normocytic anemia hemoglobin around 12.5 gram/dL. He had changed his diet significantly, cut back on animal protein and lost about 15 lb in 6 months prior to presentation. 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 Normal serum protein electrophoresis and serum immunofixation. Blood flow cytometry for PNH could not be performed because of low cell viability. CT abdomen/pelvis with contrast performed 01/09/2021 showed large expansile lytic lesion in right iliac bone suspicious for neoplastic process, measuring 6 x 7 x 9 cm. Interval History Interval history: Today's visit was to discuss results of bone scan and further management. Patient has no acute symptoms or complaints to report. Review of Systems - Constitutional Denies anorexia, Denies fatigue, Denies malaise Home Medications and Allergies Home Medications Medication Instructions Recorded Confirmed Type aspirin 81 mg tablet,delayed 81 mg PO DAILY 01/07/20 12/27/20 History release (Adult Low Dose Aspirin) eiuibefp-hlh-dguqo acid 300 1 tab PO DAILY 01/07/20 12/27/20 History mcg-lycopene 600 mcg-lutein 300 mcg tablet (Centrum Silver Ultra Men's) cetirizine 10 mg tablet (Zyrtec) 10 mg PO DAILY 12/09/20 12/27/20 History losartan 25 mg tablet 25 mg PO DAILY 12/27/20 12/27/20 History Allergies Allergy/AdvReac Type Severity Reaction Status Date / Time penicillamine Allergy Intermediate respiratory Verified 12/28/20 09:45 as child Penicillins Allergy Respiratory Verified 01/19/21 13:46 problems as infant Exam Vital signs: Vital Signs Temp 97.2 F 01/13/21 12:06 Pulse 88 01/13/21 12:06 Resp 18 01/13/21 12:06 BP 108/72 12/09/20 13:16 Pulse Ox 97 01/13/21 12:06 Weight 75.2 kg BMI result Body Mass Index 26.7 Narrative: Patient not examined today - Constitutional Present: no acute distress, average body habitus - Routine HEENT Exam Head: Present: normal inspection - Routine Respiratory Exam Present: CTAB - Routine Cardiovascular Exam Cardiovascular: Present: RRR, S1, S2 - Routine Abdominal Exam Present: normal bowel sounds, soft. Absent: organomegaly - Routine Extremities Exam Present: calf tenderness, normal inspection, pulses intact. 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 This was seen on CT abdomen/pelvis with contrast performed on 01/09/2021. On 01/19/2021 patient underwent biopsy of right iliac crest-bone marrow as well as iliac/lytic lesion biopsy. Both revealed normocellular marrow with maturing trilineage hematopoiesis. No infiltrative process identified. Flow cytometry was negative for lymphoproliferative disorder. Cytogenetics revealed normal male karyotype, [address] chest with contrast revealed 1 cm calcified left thyroid nodule, follow-up ultrasound was recommended. Several cysts in the lungs, largest measuring 3 cm in the left lower lobe. Bone scan performed 02/07/2021 revealed moderate intense activity in right iliac bone concordant with expansile lucent lesion with peripheral sclerosis. This could represent benign tumor such as intraosseous lipoma, fibrous dysplasia or myxofibrous tumor. I have discussed all of the above findings with the patient and his . The lesion in the right iliac bone appears to be a benign rather than malignant. They would like a referral to orthopedic surgeon as well, they will contact their PCP about this. I have recommended repeat imaging study in a few months to follow stability of this lesion. His CBC is improving. He is on oral iron supplementation. He will also follow up with his PCP about incidentally discovered thyroid nodule. Follow-up in 3 months. - Time Spent With Patient Time Spent with Patient (in minutes): 10
== END 2021-02-22 13:41 | disposition home or self-care (01) ==
LOC: HO.ONC 12:30
PROVIDERS: PCP Family Medicine; Referring Provider Family Medicine; Visit Provider Internal Medicine
DX: D64.9 Anemia, unspecified (principal); R93.7 Abnormal findings on diagnostic imaging of other parts of musculoskeletal system; E04.1 Nontoxic single thyroid nodule; Z79.899 Other long term (current) drug therapy; Z87.891 Personal history of nicotine dependence
CPT/HCPCS: 36415; 80053; 82784; 82955; 83010; 83540; 83615; 84165; 85025; 85045; 86334; 86880; 99204; 99214; Q3014

== ENCOUNTER 2021-01-19 12:04 | Day surgery (SDC) | payer MEDICARE, SELFPAY ==
--- NOTE | ~2021-01-19 | CT_ITS ---
EXAMINATION: CT CHEST WITH CONTRAST CLINICAL INFORMATION: Hemolytic anemia. Lytic lesion in the right iliac bone. Question lymphoma/malignancy. COMPARISON: Previous chest x-ray most recent January 2019 TECHNIQUE: Multidetector volumetric CT imaging of the chest was obtained after the administration of 65 mL of Omnipaque 350 intravenous contrast without immediate adverse reactions. Axial MIP volume rendering provided. Sagittal and coronal reformatted images were obtained. This CT examination was performed using dose optimization techniques as appropriate, variously including the following: *Automated exposure control *Adjustment of mA and/or kV according to patient size (this includes techniques or standardized protocols for targeted exams where dose is matched to indication/reason for exam; i.e. extremities or head) *Use of iterative reconstruction technique DLP: 132 mGy-cm FINDINGS: LUNGS: There are several lung cysts. The largest measures 3 cm in the left lower lobe. There are small peripheral or subpleural right lower lobe nodules adjacent to the major fissure likely representing subpleural lymph nodes. The largest measures 4 mm axial image 123 series 5. There is linear scarring or subsegmental atelectasis in the right middle lobe. The lungs are otherwise clear. MEDIASTINUM: There is a 1 cm left thyroid nodule with rim calcification. The mediastinum is otherwise normal. No adenopathy is seen. PLEURA: There is no pleural effusion. No pleural mass or thickening. AXILLA: No lymphadenopathy. UPPER ABDOMEN: Unremarkable OSSEOUS STRUCTURES: There are degenerative changes of the spine. There is an old left rib fractures. CT/CT chest w con IMPRESSION: 1 cm calcified left thyroid nodule. Follow-up thyroid ultrasound recommended. Several cysts in the lungs, largest measuring 3 cm in the left lower lobe. Small right lower lobe pulmonary nodules likely representing subpleural lymph nodes. No adenopathy.
--- NOTE | ~2021-01-19 | CT_ITS ---
EXAMINATION: CT FLUOROSCOPIC GUIDED RIGHT ILIAC BONE BIOPSY, BONE MARROW ASPIRATION CLINICAL INFORMATION: Expansile lytic lesion involving the right iliac bone. COMPARISON: CT scan of 01/09/2021 TECHNIQUE: CT fluoroscopic guided bone biopsy and aspiration right iliac bone. FINDINGS: Informed consent was obtained from the patient prior to the procedure. During this process, the procedure and potential alternatives were explained, along with the intended outcome and benefits. The risks of the procedure, as well as the risk of not doing the procedure, were discussed. The patient was given the opportunity to ask questions regarding the procedure and appeared competent to make medical decisions. A signed consent form which documents this discussion was placed in the medical record. Using sterile technique and CT fluoroscopic guidance, the superior aspect of the right iliac crest lesion was accessed by an 11-gauge bone biopsy needle in a region where there was bone and soft tissue density present. Three 13-gauge bone biopsy core samples were obtained. Bone marrow aspirate was then performed with removal of approximately 30 mL of blood. Patient tolerated the procedure without difficulty. CT/CT biopsy aspirate bone marrow IMPRESSION: CT-guided right iliac bone biopsy and marrow aspirate, as described. DLP: 130 mGy-cm
[2021-01-19 12:14] VITALS: BMI 25.8
[2021-01-19 12:25] LABS: MANUAL DIFF FLAG NO
[2021-01-19 12:30] LABS: Basophils Percent Auto 0.3 % (0-2); Eosinophils Absolute Auto 0.2 X10*3/uL (0.0-0.4); Eosinophils Percent Auto 2.4 % (0-4); Hemoglobin 13.6 g/dl (14.0-18.0); Imm Gran Abs Auto 0.01 X10*3/uL (0.00-0.03); Imm Gran Pct Auto 0.1 % (0.0-0.4); Lymphocytes Absolute Auto 2.5 X10*3/uL (1.2-4.9); Lymphocytes Percent Auto 32.7 % (20-40); Mean Corpuscular HGB Conc 33.2 g/dl (31.0-36.0); Mean Corpuscular Hemoglobin 28.5 pg (27.0-33.0); Mean Platelet Volume 9.9 fL (9.4-12.4); Monocytes Absolute Auto 0.5 X10*3/uL (0.1-1.2); Monocytes Percent Auto 6.5 % (2-11); Neutrophils Absolute Auto 4.3 x10*3/uL (2.0-8.3); Platelet Count 167 X10*3/uL (160-400); Red Blood Count 4.77 X10*6/uL (4.60-5.80); Red Cell Distribution Width 13.2 % (11.0-16.0); White Blood Count 7.5 X10*3/uL (4.8-10.8)
[2021-01-19 12:36] LABS: INTERNATIONAL NORM RATIO 1.1 (0.9-1.1); Prothrombin Time 12.4 SEC (9.9-13.0)
[2021-01-19 12:39] LABS: Partial Thromboplastin Time 56.7 SEC (24.1-38.0)
[2021-01-19] MEDS: iohexoL 350 MG/ML 100 ML INFUS..BTL IV (15:08)
[2021-01-19 15:20] VITALS: BP 109/68; PULSE 63; RESP 18; TEMP 36.5; O2SAT 97
[2021-01-19 15:35] VITALS: BP 103/76; PULSE 65; RESP 18; O2SAT 95
[2021-01-19 15:50] VITALS: BP 107/78; PULSE 56; RESP 16; O2SAT 95
[2021-01-19 16:20] VITALS: BP 105/63; PULSE 59; RESP 18; TEMP 36.5; O2SAT 96
[2021-01-20 14:45] LABS: Bone Marrow SEE SEPARATE REPORT
== END 2021-01-19 16:30 | disposition home or self-care (01) ==
PROVIDERS: Radiology Diagnostic Radiology; PCP Family Medicine; Visit Provider Internal Medicine
DX: D49.2 Neoplasm of unspecified behavior of bone, soft tissue, and skin (principal); D58.9 Hereditary hemolytic anemia, unspecified; I10 Essential (primary) hypertension; J98.4 Other disorders of lung; E04.1 Nontoxic single thyroid nodule; R53.83 Other fatigue; Z79.82 Long term (current) use of aspirin; Z87.891 Personal history of nicotine dependence; Z88.0 Allergy status to penicillin; Z79.899 Other long term (current) drug therapy
CPT/HCPCS: 36415; 38222; 71260; 85025; 85097; 85610; 85730; 88184; 88185; 88237; 88264; 88305; 88307; 88311; 88313; 99152; 99153; J1642; J2250; J3010; Q9967

== ENCOUNTER 2021-01-19 13:24 | Outpatient (REF) | payer MEDICARE, SELFPAY | END 2021-01-19 13:25 | disposition home or self-care (01) | LOC: HO.CT 13:24 | PROVIDERS: PCP Family Medicine; Visit Provider Internal Medicine | DX: Z13.89 Encounter for screening for other disorder (principal) ==

== ENCOUNTER → 2021-02-07 10:51 | Outpatient (REF) | payer MEDICARE, SELFPAY ==
--- NOTE | ~2021-02-07 | NM_ITS ---
EXAMINATION: NM BONE SCAN OF THE WHOLE BODY CLINICAL INFORMATION: Lytic bone lesion of right hip. COMPARISON: CT pelvic biopsy 01/19/[address] abdomen 01/09/2021. TECHNIQUE: Multiple gamma scintillation camera images of the whole body were performed 3 hours following the intravenous administration of 27 mCi Tc-99m MDP. FINDINGS: In the head, no significant abnormality. In the thoracic cage and upper extremities, no significant abnormality. In the spine, no significant abnormality. In the pelvis, moderate activity right iliac bone consistent with visualized lytic lesion on CT. No additional lesion seen in the pelvis. In the lower extremities, unremarkable. No other definite bony abnormalities are noted. The urinary bladder and faint visualization of both kidneys are noted. NM/NM bone scan whole body IMPRESSION: Moderate intense activity right iliac bone concordant with large expansile lucent central lesion with peripheral sclerosis. The CT findings could represent a benign tumor such as intraosseous lipoma, fibrous dysplasia or slipped with sclerosing myxofibrous tumor. Malignancy is considered less likely. Results were discussed with Dr. Walker by phone at 4:10 PM.
== END ==
LOC: HO.NUCMED 10:51
PROVIDERS: Visit Provider Internal Medicine
DX: M89.8X5 Other specified disorders of bone, thigh (principal)
CPT/HCPCS: 78306; A9503

== ENCOUNTER 2021-04-04 12:51 | Outpatient (REF) | payer MEDICARE, SELFPAY ==
--- NOTE | ~2021-04-04 | US_ITS ---
EXAMINATION: US THYROID CLINICAL INFORMATION: Nontoxic single thyroid nodule. COMPARISON: CT chest 01/19/2021. TECHNIQUE: Linear transducer grayscale and color Doppler examination with attention to the region of the thyroid. FINDINGS: SIZE: Measurements of the thyroid lobes and nodules are given in sagittal, anteroposterior and transverse dimensions respectively. Right Thyroid Lobe: 4.6 x 2.3 x 1.5 cm, volume 8.3 mL. Parenchyma: The gland echotexture is homogeneous. Thyroid vascularity is normal. Left Thyroid Lobe: 4.2 x 1.9 x 1.6 cm, volume 6.7 mL. Parenchyma: The gland echotexture is homogeneous. Thyroid vascularity is normal. Isthmus: 0.3 cm in maximum AP dimension. Estimated total number of nodules greater than or equal to 1 cm: 1. [employer] nodules are described as follows: 1. Location: Left mid pole. Size: 1.5 x 1.4 x 1.2 cm, volume 1.28 mL. Nodule characteristics: Composition: Solid (2). Echogenicity: Hypoechoic (2). Shape: Taller than wide (3). Margins: Smooth (0). Echogenic Foci: Peripheral calcifications (2). ACR TI-RADS total points: 9 ACR TI-RADS category: 5 2. Location: Right lower pole. Size: 0.6 x 0.3 x 0.5 cm, volume 0.059 mL. Nodule characteristics: Composition: Spongiform (0). ACR TI-RADS total points: 0 ACR TI-RADS category: 1 NODES: No lymphadenopathy is seen in the tissue surrounding the thyroid gland. US/US thyroid IMPRESSION: 1.5 cm nodule with rim calcification left mid pole very suspicious. Recommend ultrasound guided fine-needle biopsy. ACR TI-RADS RECOMMENDATION REFERENCE: Ultrasound-guided fine-needle aspiration, followup ultrasound, no further follow up. * TR1 (0 point) and TR 2 (2 points): No FNA or follow up * TR3 (3 points): FNA if more than or equal to 2.5 cm in maximum dimension, followup ultrasound in 1, 3 and 5 years if 1.5 to 2.4 cm in maximum dimension. * TR4 (4-6 points): FNA if more than or equal to 1.5 cm in maximum dimension, followup ultrasound in 1, 2, 3 and 5 years if 1 to 1.4 cm in maximum dimension. * TR5 (more than or equal to 7 points): FNA if more than or equal to 1 cm in maximum dimension, followup ultrasound every year for 5 years if 0.5 to 0.9 cm in maximum dimension. * TR3, TR4 or TR5 nodules that are below the size threshold for follow up receive no follow up.
== END 2021-04-04 12:52 | disposition home or self-care (01) ==
LOC: HO.US 12:51
PROVIDERS: PCP Family Medicine; Visit Provider Family Medicine
DX: E04.1 Nontoxic single thyroid nodule (principal)
CPT/HCPCS: 76536

== ENCOUNTER 2021-04-13 14:19 | Outpatient (REF) | payer MEDICARE, SELFPAY ==
--- NOTE | ~2021-04-13 | US_ITS ---
EXAMINATION: US ATTEMPTED LEFT THYROID NODULE BIOPSY CLINICAL INFORMATION: Rim calcified left thyroid nodule. COMPARISON: Ultrasound of 04/04/[address] scan of 01/19/2021. Chest x-rays of 01/28/2019, 02/25/2009, and 11/21/2006. TECHNIQUE: Ultrasound-guided attempt at fine-needle aspiration biopsy of left thyroid nodule. FINDINGS: Informed consent was obtained from the patient prior to the procedure. During this process, the procedure and potential alternatives were explained, along with the intended outcome and benefits. The risks of the procedure, as well as the risk of not doing the procedure, were discussed. The patient was given the opportunity to ask questions regarding the procedure and appeared competent to make medical decisions. A signed consent form which documents this discussion was placed in the medical record. Using sterile technique and ultrasound guidance multiple attempts in different areas of the calcified nodule were probed, however, the needle would not penetrate the calcified wall. The medial approach was then looked at, however, due to its positioning it would require crossing arterial vessels to get to, and no defect in the calcified wall was seen. At this point, I reviewed old chest x-rays dating back to November 21, 2006 and in the left superior mediastinum, there appears to be a density with rim calcification measuring 1.5 x 1.4 cm in size which appears to correlate in size and location to the calcified thyroid nodule. US/US biopsy thyroid IMPRESSION: Inability to perform fine-needle aspiration biopsy of rim calcified left thyroid nodule. After obtaining old chest x-rays dating back to November 21, 2006, there is evidence of a rim calcified structure measuring 1.5 x 1.4 cm in size which appears to represent the calcified thyroid nodule which has not changed appreciably in size since November 21, 2006.
[2021-04-13] MEDS: Lidocaine HCl 1 % MPF 5 ML VIAL SUBCUT (16:17)
== END 2021-04-13 14:20 | disposition home or self-care (01) ==
LOC: HO.US 14:19
PROVIDERS: PCP Family Medicine; Visit Provider Family Medicine
DX: E04.1 Nontoxic single thyroid nodule (principal)
CPT/HCPCS: 10005

== ENCOUNTER → 2021-04-25 13:08 | Outpatient (BNVA) | payer MEDICARE, SELFPAY | PROVIDERS: PCP Family Medicine; Referring Provider Family Medicine; Visit Provider Nurse Practitioner Family | DX: F45.8 Other somatoform disorders (principal); R06.83 Snoring | CPT/HCPCS: 99202 ==

== ENCOUNTER → 2021-06-21 20:05 | Outpatient (REF) | payer MEDICARE, SELFPAY | LOC: HO.SL 20:05 | PROVIDERS: Visit Provider Nurse Practitioner Family | DX: R06.83 Snoring (principal); R41.3 Other amnesia; F45.8 Other somatoform disorders; R68.89 Other general symptoms and signs | CPT/HCPCS: 95810 ==

== ENCOUNTER → 2021-06-27 08:01 | Outpatient (BNVA) | payer MEDICARE, SELFPAY | PROVIDERS: PCP Family Medicine; Visit Provider Nurse Practitioner Family | DX: G47.61 Periodic limb movement disorder (principal) | CPT/HCPCS: Q3014 ==

== ENCOUNTER 2021-08-11 12:13 | Outpatient (REF) | payer MEDICARE, SELFPAY ==
[2021-08-11 14:25] LABS: MANUAL DIFF FLAG NO
[2021-08-11 14:30] LABS: Basophils Percent Auto 0.4 % (0-2); Eosinophils Absolute Auto 0.1 X10*3/uL (0.0-0.4); Eosinophils Percent Auto 2.3 % (0-4); Hematocrit 40.4 % (42.0-52.0); Hemoglobin 13.9 g/dl (14.0-18.0); Imm Gran Abs Auto 0.01 X10*3/uL (0.00-0.03); Imm Gran Pct Auto 0.2 % (0.0-0.4); Lymphocytes Absolute Auto 1.4 X10*3/uL (1.2-4.9); Lymphocytes Percent Auto 26.7 % (20-40); Mean Corpuscular HGB Conc 34.4 g/dl (31.0-36.0); Mean Corpuscular Hemoglobin 31.3 pg (27.0-33.0); Mean Platelet Volume 10.3 fL (9.4-12.4); Monocytes Absolute Auto 0.3 X10*3/uL (0.1-1.2); Monocytes Percent Auto 5.1 % (2-11); Neutrophils Absolute Auto 3.4 x10*3/uL (2.0-8.3); Neutrophils Percent Auto 65.3 % (45-73); Platelet Count 155 X10*3/uL (160-400); Red Blood Count 4.44 X10*6/uL (4.60-5.80); Red Cell Distribution Width 13.1 % (11.0-16.0); White Blood Count 5.3 X10*3/uL (4.8-10.8)
[2021-08-11 14:41] LABS: Alanine Aminotransferase 25 U/L (0-40); Alkaline Phosphatase 87 U/L (39-117); Anion Gap 10 (12-20); Aspartate Amino Transferase 19 U/L (5-37); Bilirubin Total 0.7 mg/dL (0.0-1.0); Blood Urea Nitrogen 16 mg/dL (9-16); Calcium 9.2 mg/dL (8.4-10.2); Carbon Dioxide 26 mmol/L (22-29); Chloride 108 mmol/L (96-108); Estimated Glomerular Filt Rate > 60; Glucose Random 155 mg/dL (60-115); Iron 120 mcg/dL (45-160); Potassium 4.2 mmol/L (3.3-5.1); Sodium 140 mmol/L (135-145); Total Protein 6.3 g/dL (6.5-8.0)
[2021-08-11 14:48] LABS: Percent Iron Saturation 38 % (15-50); Total Iron Binding Capacity 319 mcg/dL (228-428); Unsaturated Iron Binding 199 ug/dL
[2021-08-11 15:14] LABS: Erythrocyte Sedimentation Rate 2 MM/HR (0-15)
[2021-08-11 15:23] LABS: Folate > 20.0 ng/mL (> or = 4.0); Vitamin B12 500 pg/mL (200-900)
[2021-08-12 14:26] LABS: CRP High Sensitivity <0.3 mg/L
== END 2021-08-11 12:14 | disposition home or self-care (01) ==
LOC: HO.WFDLDS 12:13
PROVIDERS: Visit Provider Family Medicine
DX: Z00.00 Encounter for general adult medical examination without abnormal findings (principal); E53.8 Deficiency of other specified B group vitamins; Q38.3 Other congenital malformations of tongue
CPT/HCPCS: 36415; 80053; 82607; 82746; 83540; 85025; 85652; 86141

== ENCOUNTER 2021-09-12 | Outpatient (REF) | payer MEDICARE, SELFPAY | END 2021-09-12 00:01 | disposition home or self-care (01) | LOC: HO.LNP | PROVIDERS: Visit Provider Hospitalist | DX: Z20.822 Contact with and (suspected) exposure to COVID-19 (principal) | CPT/HCPCS: U0003; U0005 ==

== ENCOUNTER 2022-01-19 09:20 | Outpatient (REF) | payer MEDICARE, SELFPAY ==
[2022-01-19 11:28] LABS: MANUAL DIFF FLAG NO
[2022-01-19 11:43] LABS: Basophils Percent Auto 0.6 % (0-2); Eosinophils Absolute Auto 0.2 X10*3/uL (0.0-0.4); Eosinophils Percent Auto 3.5 % (0-4); Hematocrit 39.7 % (42.0-52.0); Hemoglobin 14.7 g/dl (14.0-18.0); Imm Gran Abs Auto 0.01 X10*3/uL (0.00-0.03); Imm Gran Pct Auto 0.1 % (0.0-0.4); Lymphocytes Absolute Auto 2.8 X10*3/uL (1.2-4.9); Lymphocytes Percent Auto 40.1 % (20-40); Mean Corpuscular Volume 91.9 fL (80.0-98.0); Mean Platelet Volume 10.4 fL (9.4-12.4); Monocytes Absolute Auto 0.5 X10*3/uL (0.1-1.2); Monocytes Percent Auto 6.7 % (2-11); Neutrophils Absolute Auto 3.4 x10*3/uL (2.0-8.3); Platelet Count 170 X10*3/uL (160-400); Red Blood Count 4.32 X10*6/uL (4.60-5.80); Red Cell Distribution Width 13.5 % (11.0-16.0); White Blood Count 6.9 X10*3/uL (4.8-10.8)
[2022-01-19 12:19] LABS: Prostate Specific Antigen Scr 0.22 ng/mL (<0.05-4.0)
[2022-01-19 12:33] LABS: Anion Gap 14 (12-20); Blood Urea Nitrogen 12 mg/dL (9-16); Calcium 9.4 mg/dL (8.4-10.2); Carbon Dioxide 22 mmol/L (22-29); Chloride 106 mmol/L (96-108); Estimated Glomerular Filt Rate > 60; Glucose Fasting 105 mg/dL (60-99); Potassium 4.4 mmol/L (3.3-5.1); Sodium 138 mmol/L (135-145)
[2022-01-19 12:51] LABS: Estimated Average Glucose 126 mg/dL
== END 2022-01-19 09:21 | disposition home or self-care (01) ==
LOC: HO.WFDLDS 09:20
PROVIDERS: Visit Provider Family Medicine
DX: Z00.00 Encounter for general adult medical examination without abnormal findings (principal); R73.01 Impaired fasting glucose; Z12.5 Encounter for screening for malignant neoplasm of prostate
CPT/HCPCS: 36415; 80048; 83036; 84153; 85025

== ENCOUNTER 2022-10-05 08:42 | Outpatient (AMB) | payer MEDICARE, SELFPAY ==
[2022-10-05 08:48] VITALS: BP 112/70; PULSE 81; RESP 14; TEMP 37.2; O2SAT 98; BMI 28.5
--- NOTE | 2022-10-05 08:48 | MHC.PC.OV ---
Vital Signs 10/05/22 08:48 Height 5 ft 5 in Weight 171 lb BMI 28.5 BP 112/70 Blood Pressure Location Rt brachial Position Sitting Respiration 14 Pulse 81 Pulse Source Pulse Oximeter Temp 98.9 F Temp Source Temporal Artery Scan Pulse Oximetry (%) 98 Oxygen Delivery Method Room Air Intake Visit Reasons: f/u difficulty sleeping Intake Note: Patient is here for a follow up of difficulty sleeping. Patient states the gabapentin seems to be mildly helping and he would like to suggest an increase in dose. Crossbar Switch Adjuster Required: No Accompanied by: Self / Same As Patient Allergies penicillamine Allergy (Intermediate, Verified 10/05/22 08:55) respiratory as child Penicillins Allergy (Verified 10/05/22 08:55) Respiratory problems as Tobacco use date assessed: 10/05/22 Fall risk assessment: No Falls in past year Last assessed Fall Risk: 10/05/22 Dental Screening Dental Screen Date: 10/05/22 Did you have a dental visit in the last 12 months?: Yes Did you have a dental problem in the last 6 months where you did not have access to dental care?: No Was dental information given to patient?: Patient has dentist HPI f/u difficulty sleeping HPI Details 71 y/o male presents to f/u difficulty sleeping with restless leg syndrome as well as review his CPE-labs and Cologuard test. No recent CPE-labs to review. Cologuard test 09/03/22 negative. He reports slight improvement with ropinirole and his gabapentin. 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 Barry Marquez, Diane Dominguez, Chapito He and colleagues, with an educational bina from [employer]. Review of Systems Const Denies chills, Denies fatigue, Denies fever(s), Denies headache(s) and Denies weakness ENT Denies dizziness and Denies headache(s) Card Denies chest pain, Denies lightheadedness, Denies dyspnea and Denies other (Palpitations) Resp Denies cough, Denies dyspnea, Denies wheezing and Denies other ( shortness of breath) Musc Denies numbness and Denies tingling Neuro Denies dizziness, Denies headache(s), Denies numbness, Denies tingling, Denies paresthesias and Denies weakness Psych Denies anxiety and Denies depression Endo Denies fatigue Aller/Immun Denies wheezing Physical exam (Primary Care) Vital Signs: Last Vital Signs Temp 98.9 F 10/05/22 08:48 Pulse 81 10/05/22 08:48 Resp 14 10/05/22 08:48 BP 112/70 10/05/22 08:48 Pulse Ox 98 10/05/22 08:48 Oxygen Delivery Method Room Air 10/05/22 08:48 BMI result Body Mass Index 28.5 Tobacco/Smoking Status: Tobacco use Status Tobacco use date assessed 10/05/22 10/05/22 08:58 Patient Tobacco Use Status Former Tobacco user 10/05/22 08:53 Tobacco use type Cigarette 10/05/22 08:53 e-Cigarette/Vaping Use Never Used 10/05/22 08:53 Thrive Assessment: Date of Thrive Assessment Date Thrive assessed 12/28/20 10/05/22 08:53 Const General: no acute distress and well developed Nutritional Appearance: well nourished Orientation/consciousness: patient oriented x3 HENMT Head: Yes normocephalic and Yes atraumatic Eyes General: appearance normal, both eyes and all related structures Pupils: Equal, round and reactive pupils present EOM: EOMs intact bilaterally Resp Effort & Inspection: normal respiratory effort Auscultation: clear to auscultation bilaterally Cardio Rate: regular rate Rhythm: regular rhythm Heart sounds: S1 normal heart sound present, S2 normal heart sound present, no gallops, no murmurs and no rubs Neuro General: patient oriented x3 and gait normal Cranial nerves: Yes Equal, round and reactive pupils present Psych Affect: normal affect Assessment and Plan Assessment & Plan (1) Difficulty sleeping: Code(s): G47.9 - Sleep disorder, unspecified Plan: Still has ongoing difficulty sleeping due to restless legs though he notes that this is improved somewhat with gabapentin. He would like to increase the dose which I will do (2) Memory loss: Code(s): R41.3 - Other amnesia Plan: Ongoing and worsening memory loss Had seen neuropsych in the past and he will follow-up with them again I have ordered an MRI today (3) Restless leg syndrome: Code(s): G25.81 - Restless legs syndrome Plan: As above, increasing gabapentin (4) Screening for colon cancer: Code(s): Z12.11 - Encounter for screening for malignant neoplasm of colon Plan: Cologuard test was negative Orders: Orders MR head/brain wo con Today R41.3 - Other amnesia Coding Level of Care Code Est Pt Level 4 (49369) Diagnoses Difficulty sleeping G47.9 Memory loss R41.3 Restless leg syndrome G25.81 Screening for colon cancer Z12.11
== END 2022-10-05 09:20 | disposition home or self-care (01) ==
PROVIDERS: PCP Family Medicine; Visit Provider Family Medicine
DX: G47.9 Sleep disorder, unspecified (principal); R41.3 Other amnesia; G25.81 Restless legs syndrome; Z12.11 Encounter for screening for malignant neoplasm of colon
CPT/HCPCS: 99214

== ENCOUNTER 2022-10-31 13:45 | Outpatient (AMB) | payer MEDICARE, SELFPAY ==
--- NOTE | 2022-10-31 13:36 | MHC.PC.OV ---
Intake Visit Reasons: f/u labs Intake Note: Patient is following up on labs today. Allergies penicillamine Allergy (Intermediate, Verified 10/31/22 13:38) respiratory as child Penicillins Allergy (Verified 10/31/22 13:38) Respiratory problems as Tobacco use date assessed: 10/31/22 Fall risk assessment: No Falls in past year Last assessed Fall Risk: 10/31/22 Dental Screening Dental Screen Date: 10/31/22 Did you have a dental visit in the last 12 months?: Yes Did you have a dental problem in the last 6 months where you did not have access to dental care?: No Was dental information given to patient?: Patient has dentist HPI f/u labs HPI Details 71 y/o male presents to f/u CPE-labs via telemedicine. Had increased his gabapentin for RLS and difficulty sleeping. Had ordered an MRI for worsening memory loss. Labs were drawn at [facility] 10/15/22. Reviewed labs with pt. TC 172. Triglycerides 97. HDL 47. LDL 106. Mildly low RBC at 4.39. Elevated fasting glucose of 112. Pt reports gabapentin increase has been helping for his RLS though he does note ongoing fatigue. Sleep has improved but pt reports ongoing memory issues. 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 Barry L. JimmyDiane garces, Chapito He and colleagues, with an educational bina from [employer]. Review of Systems Const Denies chills, Reports fatigue, Denies fever(s), Denies headache(s) and Denies weakness ENT Denies dizziness and Denies headache(s) Card Denies dyspnea Resp Denies cough, Denies dyspnea, Denies wheezing and Denies other (shortness of breath) Musc Denies numbness and Denies tingling Neuro Denies dizziness, Denies headache(s), Denies numbness, Denies tingling and Denies weakness Psych Denies anxiety and Denies depression Endo Reports fatigue Aller/Immun Denies wheezing Physical exam (Primary Care) Tobacco/Smoking Status: Tobacco use Status Tobacco use date assessed 10/31/22 10/31/22 13:39 Patient Tobacco Use Status Former Tobacco user 10/31/22 13:39 Tobacco use type Cigarette 10/31/22 13:39 e-Cigarette/Vaping Use Never Used 10/31/22 13:39 Thrive Assessment: Date of Thrive Assessment Date Thrive assessed 12/28/20 10/31/22 13:39 Telehealth Telehealth Location of provider rendering services: practice address Location of patient: address on file Patient Identification confirmed using: Name, : Yes Telehealth method: voice only Patient verbally consented to treatment: Yes Patient verbally consented to billing insurance company: Yes Patient informed of any privacy concerns related to visit: Yes Minutes spent on Phone/Video with Pt.: 9 Assessment and Plan Assessment & Plan (1) Elevated fasting glucose: Code(s): R73.01 - Impaired fasting glucose Plan: Elevated fasting blood sugar Encouraged a diet lower in sugars and starches Will follow-up at next visit and check an A1c (2) Restless leg syndrome: Code(s): G25.81 - Restless legs syndrome Plan: Much improved since increase in gabapentin and this is helping him sleep as well Continue gabapentin (3) Memory loss: Code(s): R41.3 - Other amnesia Plan: Ongoing memory loss. Patient saw neuropsychiatry again recently. I do not have the report yet As above, he is getting improved sleep since gabapentin is improving symptoms of restless leg however this as not translated in to improved memory. I had ordered an MRI at his last visit but he has not had this scheduled yet. I will ask the office to check on the status of this test We can follow-up at his next visit to review the results of MRI and recommendations from neuropsychiatry (4) Screening for colon cancer: Code(s): Z12.11 - Encounter for screening for malignant neoplasm of colon Plan: Cologuard test was negative In August. He is up-to-date. We will follow-up again in 3 years Coding Level of Care Code Tele Est Pt Level 2 (05599) Diagnoses Elevated fasting glucose R73.01 Restless leg syndrome G25.81 Memory loss R41.3 Screening for colon cancer Z12.11
== END 2022-10-31 14:00 ==
LOC: HO.HMGFM 13:45
PROVIDERS: PCP Family Medicine; Visit Provider Family Medicine
DX: R73.01 Impaired fasting glucose (principal); G25.81 Restless legs syndrome; R41.3 Other amnesia; Z12.11 Encounter for screening for malignant neoplasm of colon
CPT/HCPCS: 99441

== ENCOUNTER 2022-12-06 07:43 | Outpatient (REF) | payer MEDICARE, SELFPAY ==
--- NOTE | ~2022-12-06 | MR_ITS ---
EXAMINATION: MR BRAIN WITHOUT CONTRAST CLINICAL INFORMATION: Amnesia. Memory loss. COMPARISON: None available. TECHNIQUE: MRI of the brain was obtained using routine sequences without contrast. FINDINGS: No focal restricted diffusion is demonstrated to suggest acute or subacute cerebral ischemia. No evidence of acute or chronic hemorrhagic products on heme-sensitive imaging. Scattered and partially confluent periventricular, deep white matter, and brainstem T2 FLAIR hyperintensities consistent with moderate underlying microangiopathy. Proportional prominence of the ventricles and sulcal spaces without evidence of obstructive hydrocephalus. No abnormal mass effect. No midline shift. Normal appearance of the pituitary gland. Normal positioning of the cerebellar tonsils. Normal arterial and venous vascular flow voids are present. Normal, homogeneous marrow signal. Atelectasis of the left maxillary sinus. Mild mucosal thickening of the paranasal sinuses. No signal abnormalities within the mastoids. MR/MR head/brain wo con IMPRESSION: 1. No acute intracranial abnormalities. 2. Moderate underlying microangiopathy and generalized cerebral volume loss.
== END 2022-12-06 07:44 | disposition home or self-care (01) ==
LOC: HO.MRI 07:43
PROVIDERS: PCP Family Medicine; Visit Provider Family Medicine
DX: R41.3 Other amnesia (principal)
CPT/HCPCS: 70551

== ENCOUNTER 2022-12-19 16:01 | Outpatient (AMB) | payer MEDICARE, SELFPAY ==
[2022-12-19 16:06] VITALS: BP 116/76; PULSE 85; RESP 12; TEMP 36.6; O2SAT 99; BMI 28.1
--- NOTE | 2022-12-19 16:06 | MHC.PC.OV ---
Vital Signs 12/19/22 16:06 Height 5 ft 5 in Weight 169 lb 2 oz BMI 28.1 BP 116/76 Blood Pressure Location Lt brachial Position Sitting Respiration 12 Pulse 85 Pulse Source Pulse Oximeter Temp 97.8 F Temp Source Temporal Artery Scan Pulse Oximetry (%) 99 Oxygen Delivery Method Room Air Intake Visit Reasons: discuss gluten intolerance Intake Note: Patient states that he has family history of gluten intolerance and would like to check. Patient states that hes been going to and from [place] due to him being told he has squamous cell carcinoma. Patient states that he is getting lesions removed 02/07/23. 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 Required: No Accompanied by: Self / Same As Patient Allergies penicillamine Allergy (Intermediate, Verified 12/19/22 16:37) respiratory as child Penicillins Allergy (Verified 12/19/22 16:37) Respiratory problems as infant Medication List - Last Reconciled 12/19/22 by Aga Rosado CNP atorvastatin 20 mg PO DAILY 90 days cetirizine (Zyrtec) 10 mg PO DAILY ferrous sulfate 27 mg PO DAILY finasteride 5 mg PO DAILY 90 days fluticasone propionate 50 mcg/actuation (Allergy Relief (fluticasone)) 2 sprays intranasal DAILY 1 month gabapentin 600 mg PO BEDTIME 90 days [id number] mcg (Centrum Silver Ultra Men's) 1 tab PO DAILY pantoprazole 40 mg PO DAILY 90 days ropinirole 0.25 - 1 mg (1 - 4 x 0.25 mg) PO BEDTIME sodium chloride 0.65% ([place] Saline) 1 spray intranasal Q2H PRN 1 month tamsulosin 0.4 mg PO DAILY 90 days Tobacco use date assessed: 10/31/22 Fall risk assessment: No Falls in past year Last assessed Fall Risk: 12/19/22 Dental Screening Dental Screen Date: 12/19/22 Did you have a dental visit in the last 12 months?: Yes Did you have a dental problem in the last 6 months where you did not have access to dental care?: No Was dental information given to patient?: Patient has dentist HPI HPI Comments History of Present Illness Details 72-year-old male presents with concerns for gluten intolerance. He reports family history of gluten intolerance and family member with celiac disease. He requests a test for celiac disease. He denies GI symptoms or acute symptoms. 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 Barry Marquez, Diane Dominguez, Chapito He and colleagues, with an educational bina from [employer]. Review of Systems Const Details: Const Denies chills, Denies fatigue, Denies fever(s), Denies headache(s) and Denies weakness ENT Denies dizziness and Denies headache(s) Card Denies chest pain, Denies lightheadedness, Denies dyspnea and Denies other (Palpitations) Resp Denies cough, Denies dyspnea, Denies wheezing and Denies other ( shortness of breath) GI Denies abdominal pain, Denies melena, Denies hematochezia, Denies change in bowel habits, Denies dyspepsia and Denies nausea Denies hematuria and Denies dysuria Musc Denies abnormal gait, Denies myalgias, Denies arthralgias, Denies numbness and Denies tingling Skin/Breast Denies rash, Denies unusual bruising and Denies wounds Neuro Denies abnormal gait, Denies dizziness, Denies headache(s), Denies memory loss, Denies numbness, Denies Sensory deficit (Neuro), Denies tingling and Denies weakness Psych Denies anxiety, Denies depression, Denies memory loss Endo Denies cold intolerance, Denies fatigue, Denies heat intolerance, Denies polydipsia and Denies polyuria Aller/Immun Denies wheezing Physical exam (Primary Care) Vital Signs: Last Vital Signs Temp 97.8 F 12/19/22 16:06 Pulse 85 12/19/22 16:06 Resp 12 12/19/22 16:06 BP 116/76 12/19/22 16:06 Pulse Ox 99 12/19/22 16:06 Oxygen Delivery Method Room Air 12/19/22 16:06 BMI result Body Mass Index 28.1 Tobacco/Smoking Status: Tobacco use Status Tobacco use date assessed 10/31/22 12/19/22 16:21 Patient Tobacco Use Status Former Tobacco user 12/19/22 16:21 Tobacco use type Cigarette 12/19/22 16:21 e-Cigarette/Vaping Use Never Used 12/19/22 16:21 Thrive Assessment: Date of Thrive Assessment Date Thrive assessed 12/28/20 12/19/22 16:21 Const Other: General: no acute distress and well developed Nutritional Appearance: well nourished Orientation/consciousness: patient oriented x3 HENMT Head: Yes normocephalic and Yes atraumatic Eyes General: appearance normal, both eyes and all related structures Pupils: Equal, round and reactive pupils present EOM: EOMs intact bilaterally Resp Effort & Inspection: normal respiratory effort Auscultation: clear to auscultation bilaterally Cardio Rate: regular rate Rhythm: regular rhythm Heart sounds: S1 normal heart sound present, S2 normal heart sound present, no gallops, no murmurs and no rubs GI Palpation (GI): No Abdominal aortic bruit present, Soft to palpation, nontender, No hepatosplenomegaly present and No Rebound tenderness present Auscultation: normal bowel sounds General: Yes no CVA tenderness Back/Spine/Pelvis Back: no CVA tenderness Cervical Spine: cervical ROM normal and No Cervical spine tenderness Thoracic/Lumbar Spine: thoraco-lumbar ROM normal, No pain with thoraco-lumbar ROM, No thoracic spinal tenderness and No lumbar spinal tenderness Extrem General: Yes normal to inspection, No edema and No calf tenderness Skin General: warm and dry. Normal skin color. Normal skin turgor Lesions: no lesions Rashes: no rashes Trauma: no lacerations or abrasions Wounds: no wounds Nails: normal Neuro General: patient oriented x3, gait normal and no focal neuro deficit Cranial nerves: Yes Equal, round and reactive pupils present Cognition (Neuro): normal cognition Gait exam (Neuro): Normal gait present Sensory Exam: No Sensory deficit (Neuro) Psych Appearance: grossly normal Affect: normal affect Attitude: cooperative Thought process: Normal thought process present Assessment and Plan Assessment & Plan (1) Family history of celiac disease: Code(s): Z83.79 - Family history of other diseases of the digestive system Plan: Tissue transglutaminase lab ordered. Patient advised to get blood work done. Will review results and make changes to his care plan if warranted. Advised to follow-up with his PCP as planned Return with symptoms or concerns Verbalized understanding and agreed with treatment plan. Orders: Orders Transglutaminase IgA Today Z83.79 - Family history of other diseases of the digestive system Coding Level of Care Code Est Pt Level 3 (78248) Diagnoses Family history of celiac disease Z83.79
== END 2022-12-19 16:49 | disposition home or self-care (01) ==
PROVIDERS: PCP Family Medicine; Visit Provider Nurse Practitioner Family
DX: Z83.79 Family history of other diseases of the digestive system (principal)
CPT/HCPCS: 99212

== ENCOUNTER 2023-04-11 13:27 | Outpatient (AMB) | payer MEDICARE, SELFPAY ==
[2023-04-11 13:39] VITALS: BP 124/70; PULSE 82; O2SAT 98; BMI 28.3
--- NOTE | 2023-04-11 13:39 | A.OFFPC_ITS ---
Vital Signs 04/11/23 13:39 Height 5 ft 5 in Weight 170 lb 4 oz BMI 28.3 BP 124/70 Blood Pressure Location Lt brachial Position Sitting Pulse 82 Pulse Source Pulse Oximeter Pulse Oximetry (%) 98 Oxygen Delivery Method Room Air Intake Visit Reasons: Medication / Referral f/u Intake Note: Patient is here today for referral for speech therapy, and to do a med review, and would like a test for celiac disease. Allergies penicillamine Allergy (Intermediate, Verified 04/11/23 13:40) respiratory as child Penicillins Allergy (Verified 04/11/23 13:40) Respiratory problems as Tobacco use date assessed: 04/11/23 Fall risk assessment: No Falls in past year Last assessed Fall Risk: 04/11/23 Dental Screening Dental Screen Date: 04/11/23 Did you have a dental visit in the last 12 months?: No HPI Medication / Referral f/u HPI Details 72 y/o male presents to f/u chronic cond itions inculding elevated fasting blood sugars and worsening memory loss. Hx of pre-diabetes. Last A1c 6.0%. A1c today 04/11/23 improved to 5.7%. 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 Barry Marquez, Diane Dominguez, Chapito He and colleagues, with an educational bina from [employer]. Review of Systems Const Denies chills, Denies fatigue, Denies fever(s), Denies headache(s) and Denies weakness ENT Denies dizziness and Denies headache(s) Card Denies chest pain, Denies lightheadedness, Denies dyspnea and Denies other (Palpitations) Resp Denies cough, Denies dyspnea, Denies wheezing and Denies other ( shortness of breath) Musc Denies numbness and Denies tingling Neuro Denies dizziness, Denies headache(s), Denies numbness, Denies tingling, Denies paresthesias and Denies weakness Psych Denies anxiety and Denies depression Endo Denies fatigue Aller/Immun Denies wheezing Physical exam (Primary Care) Vital Signs: Last Vital Signs Pulse 82 04/11/23 13:39 BP 124/70 04/11/23 13:39 Pulse Ox 98 04/11/23 13:39 Oxygen Delivery Method Room Air 04/11/23 13:39 BMI result Body Mass Index 28.3 Tobacco/Smoking Status: Tobacco use Status Tobacco use date assessed 04/11/23 04/11/23 13:42 Patient Tobacco Use Status Former Tobacco user 04/11/23 13:42 Tobacco use type Cigarette 04/11/23 13:42 e-Cigarette/Vaping Use Never Used 04/11/23 13:42 Thrive Assessment: Date of Thrive Assessment Date Thrive assessed 12/28/20 04/11/23 13:42 Const General: no acute distress and well developed Nutritional Appearance: well nourished Orientation/consciousness: patient oriented x3 [facility]: Yes normocephalic and Yes atraumatic Eyes General: appearance normal, both eyes and all related structures Pupils: Equal, round and reactive pupils present EOM: EOMs intact bilaterally Resp Effort & Inspection: normal respiratory effort Auscultation: clear to auscultation bilaterally Cardio Rate: regular rate Rhythm: regular rhythm Heart sounds: S1 normal heart sound present, S2 normal heart sound present, no gallops, no murmurs and no rubs Neuro General: patient oriented x3 and gait normal Cranial nerves: Yes Equal, round and reactive pupils present Psych Affect: normal affect Results AMB Hemoglobin A1c AMB Hemoglobin A1c 5.7 % Last Edit by Elvia Corrales CMA on 04/11/23 14:24 Assessment and Plan Assessment & Plan (1) Pre-diabetes: Code(s): R73.03 - Prediabetes Plan: A1c?5.7%.??Still?in?pre?diabetes?range He?has?a?history?of?microvascular?disease?seen?on?brain?MRI Work?at?diet?low?in?sugars?and?starches Will?continue?to?monitor (2) Memory loss: Code(s): R41.3 - Other amnesia Plan: Followed?by?neuropsychiatry Likely?multifactorial He?should?follow-up?with?sleep?medicine?regarding?sleep?apnea Strong?family?history?of?celiac?disease?and?checking?lab?work- may?need?referral?to?gastroenterology Encouraged?memory?exercises Follow-up?with?neuropsych?as?recommended (3) Squamous cell carcinoma, tongue border: Code(s): C02.1 - Malignant neoplasm of border of tongue Plan: Recent?squamous?cell?carcinoma?of?tongue?with?unilateral?neck?dissection?and?par tial?glossectomy. Some?difficulty?with?speech. Referred?to?speech?and?hearing?at?[facility] [place] (4) Family history of celiac disease: Code(s): Z83.79 - Family history of other diseases of the digestive system Plan: As?above,?check?labs May?need?referral?to?GI Orders: Orders Transglutaminase IgA Today Z83.79 - Family history of other diseases of the digestive system Comprehensive [place]. Panel Fast Today R73.01 - Impaired fasting glucose, Z00.00 - Encounter for general adult medical examination without abnormal findings AMB Hemoglobin A1c Today Z13.9 - Encounter for screening, unspecified Referrals Speech and Hearing Referral C02.1 - Malignant neoplasm of border of tongue Medications: Changed From tamsulosin 0.4 mg PO DAILY 90 days 90 caps 4RF To tamsulosin 0.8 mg (2 x 0.4 mg) PO DAILY 90 days 180 caps 4RF Coding Level of Care Code Est Pt Level 4 (30489) Diagnoses Pre-diabetes R73.03 Memory loss R41.3 Squamous cell carcinoma, tongue border C02.1 Family history of celiac disease Z83.79
== END 2023-04-11 14:34 | disposition home or self-care (01) ==
PROVIDERS: PCP Family Medicine; Visit Provider Family Medicine
DX: R73.03 Prediabetes (principal); R41.3 Other amnesia; C02.1 Malignant neoplasm of border of tongue; Z83.79 Family history of other diseases of the digestive system
CPT/HCPCS: 83036; 99214

== ENCOUNTER 2023-07-29 12:59 | Outpatient (RCR) | payer MEDICARE, SELFPAY ==
--- NOTE | 2023-08-28 14:04 | MHC.SP.ADU ---
Referring provider: Dr. Joshua Torrez Reason for Referral: Dysarthria Type of Treatment: 44672 Evaluation of Speech Sound Production Date of Plan of Treatment: 07/29/23 Onset of Symptoms/Illness: 04/12/23 Date Treatment Started: 07/29/23 Medical Diagnosis: Malignant neoplasm of border tongue Primary Speech Language Diagnosis: R47.1 Dysarthria History Pt is polite and insightful 72 year-old man with recent right unilateral neck dissection and partial glossectomy related to squamous cell carcinoma of the tongue border. Since that time he has noticed changes to his Speech patterns and is seeking Speech Therapy to address them. During our interview he also expressed concerns with cognition and memory but states they have been improving with medical management. He also reports that he has variable availability and may not be able to commit to weekly appointments. Pt gets a significant amount of his care outside our system so not all information is readily available. Medical History: Recent Hospitalizations: No Respiratory Needs: Room Air Patient Orientation: Alert & Oriented x 4 Social History: Employment Status: Unknown Highest level of education obtained: Unknown Swallowing History: Dysphagia Specific: Within Functional Limits Comments: Pt reports no difficulty swallowing, no change since surgery. He has not had an updated MBSS. Pre-eval Risk for Aspiration: Pre-evaluation Dietary Consistencies: Regular Pre-eval Liquid Intake: Thin Pre-eval Medication Intake: Whole with Liquid Reported Speech, Language, Cognition difficulties: Speaking Quality of Life: Patient Stated Goal of Speech-Language Therapy: To address articulation changes. Assessment Speech Production: Slurred Clinical Impression: Impaired Observations: Speech/Articulation was informally assessed using a reading passage and repetition of words containing difficult sounds for him. The fricative consonant /s/ was perceptually judged to have a lateral lisp. Also the stop consonants /t/ and /d/ requiring tongue tip elevation to the alveolar ridge sounded as if the articulatory contacts were insufficient. The relatively straight forward nature of his Speech difficulties allowed for a period of stimulability testing at the end of the evaluation. He was shown pictures and video of how the articulators move for these sounds. When asked to repeated /t/ and /d/ initial words after this training his articulatory contacts improved with effort. His /s/ production requires more attention, as it is the sound that bothers him the most. He was able to change the auditory quality of /s/ by advancing and retracting his tongue with models today. He is sent home with more materials and exercises to practice while he waits for his appointment. Given his limited variability he will need further training and follow-up to practice these skills on his own. Informal Voice Assessment: Voice Loudness: Normal Voice Nasal Resonance: Normal Voice Oral Resonance: Normal Voice Phonatory-based Quality: Normal Voice Pitch: Normal Clinical Impression: Intact Tests of Speech & Lang Adults: Clinical Impression: Intact Tests of Cognition: Clinical Impression: Intact Recommendation for Speech Therapy: Outpatient Speech Therapy Frequency/Duration: TBD Date Range for Service Requested: 07/29/23 - 10/29/23 Time to Reassess: 3 months [facility] Goals: LTG1: Pt will express symptom relief of his dysarthria. LTG2: Pt's dysarthria will be subjectively judges WFL by an outside listener. Short Term Goals: Goal # : STG1: Pt will produce alveolar stops /t/ and /d/ across positions at the word level with >80% accuracy and minimal assistance. Goal Status: New Goal Goal# : STG2: Pt will produce /s/-initial at the word level with >80% accuracy and minimal assistance. Goal Status: New Goal Goal # : STG3: Pt will demonstrate back oral-motor strengthening and range of motion exercises with >80% accuracy and minimal assistance. Goal Status: New Goal Recommended Referrals to be Discussed with Primary Care Provider: Follow-up with PCP Completed: Yes Patient/Caregiver Education: Described Results of Evaluation Patient expressed understanding of evaluation Patient agrees with goals and treatment plan Patient demonstrated recommended strategies Comments/Barriers to Learning: Mining Analyst Clinican/Clinical Fellow: No Supervisory Statement: No Speech Language Pathologist: Krishna Diaz M.A., [facility]
--- NOTE | 2023-08-28 14:07 | MHC.SP.ADU ---
Referring provider: Dr. Joshua Torrez Reason for Referral: Dysarthria Type of Treatment: 98386 Evaluation of Speech Sound Production Date of Plan of Treatment: 07/29/23 Onset of Symptoms/Illness: 04/12/23 Date Treatment Started: 07/29/23 Medical Diagnosis: Malignant neoplasm of border tongue Primary Speech Language Diagnosis: R47.1 Dysarthria Secondary Speech Language Diagnosis: History Pt is polite and insightful 72 year-old man with recent right unilateral neck dissection and partial glossectomy related to squamous cell carcinoma of the tongue border. Since that time he has noticed changes to his Speech patterns and is seeking Speech Therapy to address them. During our interview he also expressed concerns with cognition and memory but states they have been improving with medical management. He also reports that he has variable availability and may not be able to commit to weekly appointments. Pt gets a significant amount of his care outside our system so not all information is readily available. Medical History: Pre-diabetes R73.03 Squamous cell carcinoma, tongue border C02.1 Memory loss R41.3 Anxiety F41.9 Essential hypertension I10 Screening for colon cancer Z12.11 Screening for prostate cancer Z12.5 Adult general medical exam Z00.00 Recent Hospitalizations: No Respiratory Needs: Room Air Patient Orientation: Alert & Oriented x 4 Social History: Employment Status: Unknown Highest level of education obtained: Unknown/Unable to report Current Living Situation: Assistive Devices in use: Comment: Past Speech Language Therapy: Other Therapies Seen in Current Calendar Year: Other: Swallowing History: Dysphagia Specific: Within Functional Limits Comments: Pt reports no difficulty swallowing, no change since surgery. He has not had an updated MBSS. Pre-eval Risk for Aspiration: Pre-evaluation Dietary Consistencies: Regular Pre-eval Liquid Intake: Thin Pre-eval Medication Intake: Whole with Liquid Reported Speech, Language, Cognition difficulties: Speaking Comments: Quality of Life: Patient Stated Goal of Speech-Language Therapy: To address articulation changes. Assessment Speech Production: Slurred Clinical Impression: Impaired Observations: Speech/Articulation was informally assessed using a reading passage and repetition of words containing difficult sounds for him. The fricative consonant /s/ was perceptually judged to have a lateral lisp. Also the stop consonants /t/ and /d/ requiring tongue tip elevation to the alveolar ridge sounded as if the articulatory contacts were insufficient. The relatively straight forward nature of his Speech difficulties allowed for a period of stimulability testing at the end of the evaluation. He was shown pictures and video of how the articulators move for these sounds. When asked to repeated /t/ and /d/ initial words after this training his articulatory contacts improved with effort. His /s/ production requires more attention, as it is the sound that bothers him the most. He was able to change the auditory quality of /s/ by advancing and retracting his tongue with models today. He is sent home with more materials and exercises to practice while he waits for his appointment. Given his limited variability he will need further training and follow-up to practice these skills on his own. Informal Voice Assessment: Voice Loudness: Normal Voice Nasal Resonance: Normal Voice Oral Resonance: Normal Voice Phonatory-based Quality: Normal Voice Pitch: Normal Voice Other Observations: Clinical Impression: Intact Clinicial Observations: Tests of Speech & Lang Adults: Clinical Impression: Intact Observations: Tests of Cognition: Clinical Impression: Intact Observations: Augmentative and Alternative Communication: Observations: Impressions and Recommendations Summary: Impact on Daily Function/Activity Limitations: Daily Activities: Interpersonal Interactions: Education: Employment: Community: Prognosis for Improvement: Comment: Recommendation for Speech Therapy: Outpatient Speech Therapy Frequency/Duration: TBD Date Range for Service Requested: 07/29/23 - 10/29/23 Time to Reassess: 3 months [employer] Scientific Liaison Goals: LTG1: Pt will express symptom relief of his dysarthria. LTG2: Pt's dysarthria will be subjectively judges WFL by an outside listener. Short Term Goals: Goal # : STG1: Pt will produce alveolar stops /t/ and /d/ across positions at the word level with >80% accuracy and minimal assistance. Goal Status: New Goal Goal# : STG2: Pt will produce /s/-initial at the word level with >80% accuracy and minimal assistance. Goal Status: New Goal Goal # : STG3: Pt will demonstrate back oral-motor strengthening and range of motion exercises with >80% accuracy and minimal assistance. Goal Status: New Goal Goal # : Goal Status: New Goal Recommended Referrals to be Discussed with Primary Care Provider: Patient Education: Completed: Yes Patient/Caregiver Education: Described Results of Evaluation Patient expressed understanding of evaluation Patient agrees with goals and treatment plan Patient demonstrated recommended strategies Comments/Barriers to Learning: Chart Changer Clinican/Clinical Fellow: No Supervisory Statement: No Speech Language Pathologist: Krishna Diaz M.A., [facility]
== END 2023-08-30 11:04 | disposition still patient (30) ==
LOC: HO.SH 12:59
PROVIDERS: PCP Family Medicine; Visit Provider Family Medicine
DX: C02.1 Malignant neoplasm of border of tongue (principal)
CPT/HCPCS: 92522

== ENCOUNTER 2023-08-16 13:50 | Outpatient (AMB) | payer MEDICARE, SELFPAY ==
--- NOTE | 2023-08-16 14:01 | MHC.PC.OV ---
Vital Signs 08/16/23 14:02 Height 5 ft 5 in Weight 167 lb BMI 27.8 BP 118/60 Blood Pressure Location Lt brachial Position Sitting Pulse 77 Pulse Source Pulse Oximeter Pulse Oximetry (%) 97 Intake Visit Reasons: Extended exam with f/u labs and health maint. Intake Note: Patient is here for extended exam with follow up on labs and health maintenace. Would like to talk about labs for Celiac disease testing, as it's in the family. Allergies penicillamine Allergy (Intermediate, Verified 08/16/23 14:04) respiratory as child Penicillins Allergy (Verified 08/16/23 14:04) Respiratory problems as infant Medication List - Last Reconciled 08/16/23 by Joshua Nicole MD atorvastatin 20 mg PO DAILY 90 days cetirizine (Zyrtec) 10 mg PO DAILY ferrous sulfate 27 mg PO DAILY finasteride 5 mg PO DAILY 90 days fluocinolone acetonide oil 0.01% 5 drps otic (ears) BID 14 days fluticasone propionate 50 mcg/actuation (Allergy Relief (fluticasone)) 2 sprays intranasal DAILY 1 month gabapentin 600 mg PO BEDTIME 90 days la-[id number]-yxllix [id number] mcg (Centrum Silver Ultra Men's) 1 tab PO DAILY pantoprazole 40 mg PO DAILY 90 days sodium chloride 0.65% ([place] Saline) 1 spray intranasal Q2H PRN 1 month tamsulosin 0.8 mg (2 x 0.4 mg) PO DAILY 90 days Tobacco use date assessed: 08/16/23 Fall risk assessment: No Falls in past year Last assessed Fall Risk: 08/16/23 Dental Screening Dental Screen Date: 04/11/23 HPI Extended exam with f/u labs and health maint. HPI Details 72 y/o male presents for an extended exam with f/u labs and health maintenance. Recent diagnosis of oral squamous cell tumor and patient is now s/p right unilateral neck dissection and partial glossectomy. Requesting notes from [facility]. No recent CPE-labs to review. Pt reports frustration and ongoing memory issues. [facility] Medical History (Updated 04/11/23 @ 14:13 by Ten Miguel) Squamous cell carcinoma, tongue border Surgical History History of tonsillectomy Family History (Updated 08/16/23 @ 14:09 by Elvia Corrales [facility]) Mother Mental health disorder Daughter Celiac disease Unknown Celiac disease Social History Housing: House Alcohol intake: current Alcohol intake frequency: a few times a month Patient Tobacco Use Status: Former Tobacco user Tobacco use type: Cigarette Cigarette Packs Per Day: 1 e-Cigarette/Vaping Use: Never Used Second Hand Smoke Exposure: No service: No Current occupational status: employed and other 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 Barry Marquez, Diane oDminguez, Chapito He and colleagues, with an educational bina from [employer]. Review of Systems Const Denies chills, Denies fatigue, Denies fever(s), Denies headache(s) and Denies weakness Eyes Denies change in vision ENT Denies dizziness, Denies headache(s), Denies hearing loss, Denies nasal congestion, Denies sinus pain, Denies sinus pressure and Denies sore throat Card Denies chest pain, Denies lightheadedness, Denies dyspnea and Denies other (palpitations) Resp Denies cough, Denies dyspnea and Denies wheezing GI Denies abdominal pain, Denies melena, Denies hematochezia, Denies change in bowel habits, Denies dyspepsia and Denies nausea Denies hematuria and Denies dysuria Musc Denies abnormal gait, Denies myalgias, Denies arthralgias, Denies numbness and Denies tingling Skin/Breast Denies rash, Denies unusual bruising and Denies wounds Neuro Denies abnormal gait, Denies dizziness, Denies headache(s), Denies memory loss, Denies numbness, Denies Sensory deficit (Neuro), Denies tingling and Denies weakness Psych Denies anxiety, Denies depression and Denies memory loss Endo Denies cold intolerance, Denies fatigue, Denies heat intolerance, Denies polydipsia and Denies polyuria Liam/Lymph Denies easy bleeding and Denies easy bruising Aller/Immun Denies wheezing Physical exam (Primary Care) Vital Signs: Last Vital Signs Pulse 77 08/16/23 14:02 BP 118/60 08/16/23 14:02 Pulse Ox 97 08/16/23 14:02 BMI result Body Mass Index 27.8 Tobacco/Smoking Status: Tobacco use Status Tobacco use date assessed 08/16/23 08/16/23 14:07 Patient Tobacco Use Status Former Tobacco user 08/16/23 14:07 Tobacco use type Cigarette 08/16/23 14:07 e-Cigarette/Vaping Use Never Used 08/16/23 14:07 Thrive Assessment: Date of Thrive Assessment Date Thrive assessed 12/28/20 08/16/23 14:07 Const General: no acute distress, well developed, alert and awake Nutritional Appearance: well nourished Orientation/consciousness: patient oriented x3 HENMT Head: Yes normocephalic and Yes atraumatic Ears: hearing grossly normal bilaterally and TM's normal bilaterally General nose exam: Normal external nose present and Normal nares present Mouth: Normal oral and palatal mucosa present and moist mucous membranes Teeth and gingiva: dentition normal Throat: Yes posterior oropharynx normal Eyes General: appearance normal, both eyes and all related structures Pupils: Equal, round and reactive pupils present and Pupil accommodation reflex normal EOM: EOMs intact bilaterally Neck Neck: Yes normal visual inspection, Yes no lymphadenopathy and Yes trachea midline Thyroid: Thyroid normal Carotids: no bruits Lymphatic: no lymphadenopathy noted Chest Chest palpation & inspection: normal inspection of the chest Resp Effort & Inspection: normal respiratory effort Auscultation: clear to auscultation bilaterally Cardio Rate: regular rate Rhythm: regular rhythm Heart sounds: S1 normal heart sound present, S2 normal heart sound present, no gallops, no murmurs and no rubs Bruits: no abdominal aortic bruits and no carotid bruits GI Palpation (GI): No Abdominal aortic bruit present, Soft to palpation, nontender, No hepatosplenomegaly present and No Rebound tenderness present Auscultation: normal bowel sounds General: Yes no CVA tenderness Back/Spine/Pelvis Back: no CVA tenderness Cervical Spine: cervical ROM normal and No Cervical spine tenderness Thoracic/Lumbar Spine: thoraco-lumbar ROM normal, No pain with thoraco-lumbar ROM, No thoracic spinal tenderness and No lumbar spinal tenderness Skin Lesions: no lesions Rashes: no rashes Trauma: no lacerations or abrasions Wounds: no wounds Nails: normal Neuro General: patient oriented x3 Cranial nerves: Yes Equal, round and reactive pupils present Cognition (Neuro): normal cognition Gait exam (Neuro): Normal gait present Motor exam (neuro): 5/5 motor strength present throughout Sensory Exam: No Sensory deficit (Neuro) Deep tendon reflexes (DTR's): Right patellar reflex intensity grade: 2+ and Left patellar reflex intensity grade: 2+ Extrem General: Yes normal to inspection and No edema Psych Appearance: grossly normal Affect: normal affect Attitude: cooperative Thought process: Normal thought process present Assessment and Plan Assessment & Plan (1) Pre-diabetes: Code(s): R73.03 - Prediabetes Plan: Check?A1c (2) Squamous cell carcinoma, tongue border: Code(s): C02.1 - Malignant neoplasm of border of tongue Plan: S/p?partial?glossectomy Stable Follow-up?with??Rafael?as?recommended (3) Memory loss: Code(s): R41.3 - Other amnesia Plan: Ongoing?and?worsening?memory?loss Trial?Aricept Patient?will?follow-up?with?the?memory?clinic?at?[facility] [place]?in?a?few?months (4) Anxiety: Code(s): F41.9 - Anxiety disorder, unspecified Plan: Will?ask?the?nurse?navigator?to?refer?him?to?a?therapist (5) Essential hypertension: Code(s): I10 - Essential (primary) hypertension Plan: Well?controlled.??Goal?is?less?than?140/90 Continue?current?medication (6) Screening for colon cancer: Code(s): Z12.11 - Encounter for screening for malignant neoplasm of colon Plan: Up-to-date (7) Screening for prostate cancer: Code(s): Z12.5 - Encounter for screening for malignant neoplasm of prostate Plan: Check?PSA (8) Adult general medical exam: Code(s): Z00.00 - Encounter for general adult medical examination without abnormal findings Plan: 72-year-old?male?presents?for?extended?exam Encouraged?healthy?diet?with?active?lifestyle?and?ongoing?exercise Orders: Orders Complete Blood Count Auto Diff Today R41.3 - Other amnesia, Z00.00 - Encounter for general adult medical examination without abnormal findings Lipid Panel Today Z00.00 - Encounter for general adult medical examination without abnormal findings Hemoglobin A1c Today R73.01 - Impaired fasting glucose Comprehensive Met. Panel Today R41.3 - Other amnesia TSH reflex Free T4 Today R41.3 - Other amnesia, Z00.00 - Encounter for general adult medical examination without abnormal findings Prostate Specific Antigen Scr Today Z12.5 - Encounter for screening for malignant neoplasm of prostate Microalbumin, Random (w Creat) Today I10 - Essential (primary) hypertension Medications: New donepezil (Aricept) 10 mg PO BEDTIME 90 days 90 tabs 2RF Coding Level of Care Code Est Pt Level 4 (49978) Diagnoses Pre-diabetes R73.03 Squamous cell carcinoma, tongue border C02.1 Memory loss R41.3 Anxiety F41.9 Essential hypertension I10 Screening for colon cancer Z12.11 Screening for prostate cancer Z12.5 Adult general medical exam Z00.00
[2023-08-16 14:02] VITALS: BP 118/60; PULSE 77; O2SAT 97; BMI 27.8
== END 2023-08-16 15:07 | disposition home or self-care (01) ==
PROVIDERS: PCP Family Medicine; Visit Provider Family Medicine
DX: R73.03 Prediabetes (principal); C02.1 Malignant neoplasm of border of tongue; R41.3 Other amnesia; F41.9 Anxiety disorder, unspecified; I10 Essential (primary) hypertension; Z12.11 Encounter for screening for malignant neoplasm of colon; Z12.5 Encounter for screening for malignant neoplasm of prostate
CPT/HCPCS: 99214

== ENCOUNTER 2023-08-16 15:26 | Outpatient (REF) | payer MEDICARE, SELFPAY ==
[2023-08-16 17:25] LABS: MANUAL DIFF FLAG NO
[2023-08-16 17:27] LABS: Basophils Percent Auto 0.4 % (0-2); Eosinophils Absolute Auto 0.3 X10*3/uL (0.0-0.4); Eosinophils Percent Auto 4.6 % (0-4); Hematocrit 37.9 % (42.0-52.0); Hemoglobin 13.7 g/dl (14.0-18.0); Imm Gran Abs Auto 0.01 X10*3/uL (0.00-0.03); Imm Gran Pct Auto 0.2 % (0.0-0.4); Lymphocytes Absolute Auto 1.7 X10*3/uL (1.2-4.9); Lymphocytes Percent Auto 31.3 % (20-40); Mean Corpuscular HGB Conc 36.1 g/dl (31.0-36.0); Mean Corpuscular Hemoglobin 33.5 pg (27.0-33.0); Mean Corpuscular Volume 92.7 fL (80.0-98.0); Mean Platelet Volume 10.3 fL (9.4-12.4); Monocytes Absolute Auto 0.4 X10*3/uL (0.1-1.2); Monocytes Percent Auto 6.4 % (2-11); Neutrophils Absolute Auto 3.1 x10*3/uL (2.0-8.3); Neutrophils Percent Auto 57.1 % (45-73); Platelet Count 163 X10*3/uL (160-400); Red Blood Count 4.09 X10*6/uL (4.60-5.80); Red Cell Distribution Width 13.2 % (11.0-16.0); White Blood Count 5.4 X10*3/uL (4.8-10.8)
[2023-08-16 17:31] LABS: Appearance Urine Clear; Color Urine Yellow; Glucose Urine UA Negative (Negative); Leukocyte Esterase Urine Negative (Negative); Nitrite Urine Negative (Negative); PH 6.5 (5.0-9.0); Urine Blood Negative (Negative); Urine Ketones Negative (Negative); Urine Protein Negative (Neg-Trace)
[2023-08-16 17:44] LABS: Alanine Aminotransferase 15 U/L (0-40); Alkaline Phosphatase 83 U/L (39-117); Anion Gap 11 (12-20); Aspartate Amino Transferase 32 U/L (5-37); Bilirubin Total 0.5 mg/dL (0.0-1.0); Blood Urea Nitrogen 14 mg/dL (9-16); Carbon Dioxide 27 mmol/L (22-29); Chloride 109 mmol/L (96-108); Cholesterol 151 mg/dL (<200); Estimated Glomerular Filt Rate > 60; Glucose Random 101 mg/dL (60-115); HDL Cholesterol 43 mg/dL (>40); LDL Cholesterol Calculated 67 mg/dL (<100); Sodium 143 mmol/L (135-145); Total Protein 6.5 g/dL (6.5-8.0); Triglycerides 208 mg/dL (<150)
[2023-08-16 17:45] LABS: Estimated Average Glucose 120 mg/dL; Hemoglobin A1c % 5.8 % (<6.0)
[2023-08-16 17:49] LABS: Creatinine Urine 67.37 mg/dL; Microalbum/Creatinine Ratio Ur 8.9 ug/mg cr (<30)
[2023-08-16 17:57] LABS: TSH reflex Free T4 1.11 uIU/mL (0.32-4.0)
[2023-08-16 18:18] LABS: Folate 15.5 ng/mL (> or = 4.0); Prostate Specific Antigen Scr 0.21 ng/mL (<0.05-4.0)
[2023-08-16 18:55] LABS: Vitamin B12 524 pg/mL (200-900)
[2023-08-19 17:18] LABS: Transglutaminase IgA <1.0 U/mL
== END 2023-08-16 15:27 | disposition home or self-care (01) ==
LOC: HO.WFDLDS 15:26
PROVIDERS: Visit Provider Family Medicine
DX: Z00.00 Encounter for general adult medical examination without abnormal findings (principal); R41.3 Other amnesia; I10 Essential (primary) hypertension; R73.01 Impaired fasting glucose; E53.8 Deficiency of other specified B group vitamins; Z83.79 Family history of other diseases of the digestive system; Z12.5 Encounter for screening for malignant neoplasm of prostate
CPT/HCPCS: 36415; 80053; 80061; 81003; 82043; 82570; 82607; 82746; 83036; 84153; 84443; 85025; 86364

== ENCOUNTER 2023-10-10 10:33 | Outpatient (AMB) | payer MEDICARE, SELFPAY ==
--- NOTE | 2023-10-10 10:56 | MHC.OFFWIV ---
Intake Vital Signs 10/10/23 11:06 Height 5 ft 6.5 in Weight 161 lb BMI 25.6 BP 100/60 Position Sitting Respiration 16 Pulse 76 Pulse Source Pulse Oximeter Temp 98.4 F Temp Source Oral Pulse Oximetry (%) 98 Oxygen Delivery Method Room Air Intake Visit Reasons: EST/ COUGH/ CONGESTION/Depressed/thyroid issue Intake Note: cough,congestion, night sweats, Patient Tobacco Use Status: Former Tobacco user Allergies penicillamine Allergy (Intermediate, Verified 10/10/23 11:03) respiratory as child Penicillins Allergy (Verified 10/10/23 11:03) Respiratory problems as Medication List - Last Reconciled 10/10/23 by Cindy Pichardo PA-C albuterol sulfate 90 mcg/actuation 2 puffs inhalation Q4-6H PRN atorvastatin 20 mg PO DAILY 90 days cetirizine (Zyrtec) 10 mg PO DAILY doxycycline hyclate 100 mg PO BID ferrous sulfate 27 mg PO DAILY finasteride 5 mg PO DAILY 90 days fluticasone propionate 50 mcg/actuation (Allergy Relief (fluticasone)) 2 sprays intranasal DAILY 1 month gabapentin 600 mg PO BEDTIME 90 days [id number]-[id number] [id number] mcg (Centrum Silver Ultra Men's) 1 tab PO DAILY pantoprazole 40 mg PO DAILY 90 days tamsulosin 0.8 mg (2 x 0.4 mg) PO DAILY 90 days Do you need a note to return to daycare/school/sports/work: No HPI EST/ COUGH/ CONGESTION/Depressed/thyroid issue HPI Details Pt is a 72 y/o male who presents today with complaints of sinus pain and pressure and cough x 10 days. He states at times he has had wheezing but no shortness a breath. No chest pain. He states he has felt feverish but no chills. He has been using otc analgesics. No ear pain or sore throat. No nausea or vomiting. No stomach pain, diarrhea or constipation. [facility] Medical History (Updated 10/10/23 @ 11:29 by Cindy Pichardo PA-C) Squamous cell carcinoma, tongue border Surgical History History of tonsillectomy Family History (Updated 08/16/23 @ 14:09 by Elvia Corrales CMA) Mother Mental health disorder Daughter Celiac disease Unknown Celiac disease Social History Housing: House Alcohol intake: current Alcohol intake frequency: a few times a month Patient Tobacco Use Status: Former Tobacco user Tobacco use type: Cigarette Cigarette Packs Per Day: 1 e-Cigarette/Vaping Use: Never Used Second Hand Smoke Exposure: No service: No Current occupational status: employed and other 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 Current occupational exposures/hazards: No Cognitive needs: Yes (has trouble with memory ) Hearing needs: Yes (has hearing aids) Vision needs: No Physical Exam Vital Signs: Last Vital Signs Temp 98.4 F 10/10/23 11:06 Pulse 76 10/10/23 11:06 Resp 16 10/10/23 11:06 BP 100/60 10/10/23 11:06 Pulse Ox 98 10/10/23 11:06 Oxygen Delivery Method Room Air 10/10/23 11:06 BMI result Body Mass Index 25.6 Const Orientation/consciousness: patient oriented x3 HEENT Ears: hearing grossly normal bilaterally and TM's normal bilaterally General nose exam: Nasal discharge present clear Face and sinus: Yes sinuses nontender Throat: Yes posterior oropharynx normal Neck Thyroid: Thyroid normal Lymphatic: no lymphadenopathy noted Resp Auscultation: rhonchi (It does clear with coughing) lower bilaterally Cardio Rate: regular rate Rhythm: regular rhythm Heart sounds: S1 normal heart sound present and S2 normal heart sound present GI Inspection: Yes normal to inspection Palpation (GI): Soft to palpation and Other GI palpation findings present (nontender, no cva tenderness) Auscultation: normoactive bowel sounds Rectal Exam - Male: Yes deferred Skin General skin exam: no rashes or lesions noted Neuro General: patient oriented x3, gait normal and no focal motor deficits Assessment & Plan Assessment & Plan (1) Lung infection: Code(s): J18.9 - Pneumonia, unspecified organism Plan: I will start patient on doxycycline. Discussed risks and benefits and adverse effects of this medication including a photosensitivity rash. Albuterol ordered to use as needed. Follow up if anything worsens or changes. Patient understands and agrees with the plan. Orders: Orders XR chest 2V Today J18.9 - Pneumonia, unspecified organism Medications: New albuterol sulfate 90 mcg/actuation 2 puffs inhalation Q4-6H PRN 8.5 grams 0RF shortness of breath or wheezing doxycycline hyclate 100 mg PO BID 20 tabs 0RF Coding Level of Care Code Est Pt Level 4 (45558) Diagnoses Lung infection J18.9
[2023-10-10 11:06] VITALS: BP 100/60; PULSE 76; RESP 16; TEMP 36.9; O2SAT 98; BMI 25.6
== END 2023-10-10 11:33 | disposition home or self-care (01) ==
PROVIDERS: PCP Family Medicine; Visit Provider Physician Assistant
DX: J18.9 Pneumonia, unspecified organism (principal)
CPT/HCPCS: 99214

== ENCOUNTER 2023-12-18 13:00 | Outpatient (RCR) | payer MEDICARE, SELFPAY ==
--- NOTE | 2023-12-30 14:40 | MHC.SL.SOA ---
Referring Provider: Dr. Joshua Nicole Reason for Referral: Dysarthria Date of Plan of Treatment:07/29/23 Onset of Symptoms/Illness:04/12/23 Date Treatment Started:07/29/23 Medical Diagnosis:Residual Speech Errors Primary Speech Language Diagnosis:R47.1 Dysarthria Secondary Speech Language Diagnosis:F80.1 Expressive language disorder Reason for Visit:34291 Individual Treatment Subjective:This is an administrative discharge for Jim Giraldo. Adonay was initially evaluated on 07/29/23 and seen for a total of 9 visits from 09/18/23 - 12/18/23. His treatment has been focused on improving the articulatory precision of his /s/ sounds secondary to partial glossectomy. He has been a dedicated participant in treatment and has perceptually improved. Today, he informs that he has a lot going on in his life right now, and feels comfortable discharging from Speech Therapy with the knowledge he has accrued. Objective: The following goal were met this reporting period: STG1: Pt will produce alveolar stops /t/ and /d/ across positions at the word level with >80% accuracy and minimal assistance. STG2: Pt will produce /s/-initial at the word level with >80% accuracy and minimal assistance. STG3: Pt will demonstrate back oral-motor strengthening and range of motion exercises with >80% accuracy and minimal assistance. Assessment:Mr. Giraldo is a cancer survivor s/p partial glossectomy. Though he is highly intelligible, he is concern about a residual lateral lisp he developed after his surgery and treatment. 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 He is highly motivated and shows excellent stimulability. He is self-requesting discharge as of this date, but was nearing the end of his therapy course as it was. He is encouraged to continue with his exercises and to monitor his progress by recording himself. He understands that he will need to keep working at home and in the community to generalize his skill to more spontaneous contexts. Notes: Plan: Goal # : STG1: Pt will produce alveolar stops /t/ and /d/ across positions at the word level with >80% accuracy and minimal assistance. Status of Goal: Discharge Goal Goal # : STG2: Pt will produce /s/-initial at the word level with >80% accuracy and minimal assistance. Status of Goal: Discharge Goal Goal # : STG3: Pt will demonstrate back oral-motor strengthening and range of motion exercises with >80% accuracy and minimal assistance. Status of Goal: Discharge Goal Seen by: Graduate/Clinical Fellow: No Supervisory Statement: N/a Speech Language Pathologist: Krishna Diaz M.A., CCC-PERSONNEL MANAGER
== END 2023-12-31 08:43 | disposition home or self-care (01) ==
LOC: HO.SH 13:00
PROVIDERS: PCP Family Medicine; Visit Provider Family Medicine
DX: C02.1 Malignant neoplasm of border of tongue (principal)
CPT/HCPCS: 92507

== ENCOUNTER 2023-12-20 09:47 | Outpatient (AMB) | payer MEDICARE, SELFPAY ==
--- NOTE | 2023-12-20 09:53 | A.OFFPC_ITS ---
Vital Signs 12/20/23 09:57 Height 5 ft 5 in Weight 166 lb BMI 27.6 BP 122/68 Blood Pressure Location Rt brachial Position Sitting Respiration 14 Pulse 85 Pulse Source Pulse Oximeter Pulse Oximetry (%) 96 Oxygen Delivery Method Room Air Intake Visit Reasons: f/u memory issues, prediabetes, walkin Intake Note: routine follow up Allergies penicillamine Allergy (Intermediate, Verified 12/20/23 10:27) respiratory as child Penicillins Allergy (Verified 12/20/23 10:27) Respiratory problems as infant Medication List - Last Reconciled 12/20/23 by Gracie Mitchell, [facility]- albuterol sulfate 90 mcg/actuation 2 puffs inhalation Q4-6H PRN atorvastatin 20 mg PO DAILY 90 days cetirizine (Zyrtec) 10 mg PO DAILY donepezil 10 mg PO DAILY doxycycline hyclate 100 mg PO BID ferrous sulfate 27 mg PO DAILY finasteride 5 mg PO DAILY 90 days fluticasone propionate 50 mcg/actuation (Allergy Relief (fluticasone)) 2 sprays intranasal DAILY 1 month gabapentin 600 mg PO BEDTIME 90 days [id number] mcg (Centrum Silver Ultra Men's) 1 tab PO DAILY pantoprazole 40 mg PO DAILY 90 days tamsulosin 0.8 mg (2 x 0.4 mg) PO DAILY 90 days Tobacco use date assessed: 08/16/23 Dental Screening Dental Screen Date: 04/11/23 HPI HPI Comments History of Present Illness Details 73-year-old male with hyperlipidemia, se asonal allergies, iron-deficien cy anemia, BPH, GERD, squamous cell carcinoma of the tongue, prediabetes, generalized anxiety disorder, hypertension, mild cognitive impairment, RLS, KALIE, MDD, thyroid nodules , Hip mass managed by [facility] Dr Costello Status post tonsillectomy, s/p right unilateral neck dissection and partial glossectomy Specialists Memory clinic at [facility] for oncology care Here today for routine follow up of prediabetes and memory concerns Pt of Dr Nicole Last notes reviewed Started on Aricept 10mg 08/2023 Neuropsych note from 2022 - CPAP, hearing aides and aricept recommended along w/ annual f/u Today, he reports stable appetite. Wt stable. Was taking aricept 10 mg at HS, was awake all night. Feeling tired all of the time. So this was decreased to 5mg qD, taking in the AM. Had recent visit w/ Dr Olson this year. Consult note n/a at this time. Struggles w/ short term memory. Thyroid nodule needs annual surveillance. This was incidentally picked up on imaging for his SCC of tongue. States a FNA was to be ordered. However, this was not done. Upon record review, note from 08/18/23 Oncology consult: annual fu 2 thyroid nodules Left mid TR4 1.4x1.4x1.4 cm Right mid TR3 0.44x0.42x0.37 Last US 06/03/23 I have reviewed this w/ him today. NO need for FNA. Tells me about an incidental mass on his hip, thinks R side. Went to [facility] for fu on this. States scan done years early which also noted this. He is ff'd by [facility] at [facility] who will order repeat scans/images. Exam Awake alert NAD trachea midline, thyroid palp, nodule on R side palp. Has soft spongy node like area noted right side of neck edge of surgical incision. Reports onco team aware and plans to reimage. RRR LS CTAB Mood and affect appropriate Plan: A1c 5.5% today. Annual US of thyroid 2 nodules ordered today to be done May 2024 Cont all meds as directed. Labs today WNL. Message sent to patient after visit via portal w/ normal results. Cont f/u with care team FU with PCP in May, sooner PRN This note is constructed using voice recognition software. While every effort has been made to ensure accuracy in document control clerk, still errors may have been included Sometimes, these errors may affect the content or meaning of the given sentence . Total time spent caring for the patient today was 60 minutes. This includes time spent before the visit reviewing the chart, time spent during the visit, and time spent after the visit on documentation [facility] Medical History (Updated 12/20/23 @ 16:02 by MIGEL Wyatt-) Squamous cell carcinoma, tongue border Surgical History History of tonsillectomy Family History (Updated 08/16/23 @ 14:09 by Elvia Corrales [facility]) Mother Mental health disorder Daughter Celiac disease Unknown Celiac disease Social History Housing: House Alcohol intake: current Alcohol intake frequency: a few times a month Patient Tobacco Use Status: Former Tobacco user Tobacco use type: Cigarette Cigarette Packs Per Day: 1 e-Cigarette/Vaping Use: Never Used Second Hand Smoke Exposure: No service: No Current occupational status: employed and other 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 1. Little interest or pleasure in doing things: several days 2. Feeling down, depressed, or hopeless: more than half the days 3. Trouble falling or staying asleep, or sleeping too much: more than half the days 4. Feeling tired or having little energy: several days 5. Poor appetite or overeating: nearly every day 6. Feeling bad about yourself - or that you are a failure or have let yourself or your family down: several days 7. Trouble concentrating on things, such as reading the newspaper or watching television: not at all 8. Moving or speaking so slowly that other people could have noticed. Or the opposite - being so fidgety or restless that you have been moving around a lot more than usual: not at all 9. Thoughts that you would be better off or of hurting yourself in some way: not at all Total score: 10 Depression Screening Interpretation: Positive Depression Screening Follow-up: Existing condition Depression Screening Done: Yes 44558 - PHQ-9 Billing: Yes Source: Developed by Drs. Barry Marquez, Diane Dominguez, Chapito He and colleagues, with an educational bina from [employer]. Thrive Questionnaire Date Thrive assessed: 12/20/23 I am a: Patient What is your living situation today?: I have a steady place to live Within the past 12 months, did the food you bought not last and you didn't have the money to get more?: Never true Within the past 12 months, did you worry whether your food would run out before you got money to buy more?: Never true Do you have trouble paying for medicines?: No Do you have trouble getting transportation to medical appointments?: No Do you have trouble paying your heating and electricity bill?: No Do you have trouble taking care of your child, family member or friend?: No Do you have trouble with day-to-day activities such as bathing, preparing meals, shopping, managing finances, etc.?: No Are you currently unemployed and looking for a job?: No Are you interested in more education?: No Please select the resources that you would like help with: None Currently or been in a relationship where the following occur: No concerns reported THRIVE Score: 0 AUDIT C Alcohol Use Questionnaire (AUDIT-C) 1. How often do you have a drink containing alcohol?: Never 3. How often do you have six or more drinks on one occasion?: Never Total Score: 0 Score Reviewed/Action Taken: Yes KALIE-7 AMB Questionnaire KALIE-7 Date KALIE - 7 assessed: 12/20/23 Feeling nervous, anxious, or on edge: 1 = Several days Not being able to stop or control worryin = Several days Worrying too much about different things: 2 = More than half the days Trouble relaxin = More than half the days Being so restless that it is hard to sit still: 2 = More than half the days Becoming easily annoyed or irritable: 1 = Several days Feeling afraid as if something awful might happen: 0 = Not at all Total KALIE-7 score (0-4 normal; 5-9 mild; 10-14 moderate; 15-21 severe): 9 Source: Developed by Drs. Barry Marquez, Diane Dominguez, Chapito He and colleagues, with an educational bina from [employer]. KALIE-7 Assessment Billing KALIE-7 Assessment Tool: KALIE-7 Assessment 12250 Physical exam (Primary Care) Vital Signs: Last Vital Signs Pulse 85 12/20/23 09:57 Resp 14 12/20/23 09:57 BP 122/68 12/20/23 09:57 Pulse Ox 96 12/20/23 09:57 Oxygen Delivery Method Room Air 12/20/23 09:57 BMI result Body Mass Index 27.6 Tobacco/Smoking Status: Tobacco use Status Tobacco use date assessed 08/16/23 12/20/23 09:54 Patient Tobacco Use Status Former Tobacco user 12/20/23 09:54 Tobacco use type Cigarette 12/20/23 09:54 e-Cigarette/Vaping Use Never Used 12/20/23 09:54 PHQ-9: PHQ-9 Score PHQ-9: Total score 12/20/23 10:22 Depression Screening Interpretation: Positive Depression Screening Follow-up: Existing condition Thrive Assessment: Date of Thrive Assessment Date Thrive assessed 12/28/20 12/20/23 09:54 Currently or been in a relationship where the following occur: No concerns reported Results AMB Hemoglobin A1c AMB Hemoglobin A1c 5.5 % Last Edit by Alesha Barrios MA on 12/20/23 10:39 Results Reviewed Results Reviewed: Laboratory Last Values Hgb A1c (Clinic) 5.5 % (4.0-6.0) 12/20/23 10:22 RUN: 12/20/23 1557 PAGE 1 [facility] [address] [place] [id number] Facing Baster Jumpbasting: Joshua Lafleur M.D. Specimen Inquiry Name: Jim Giraldo Age/Sex: 73/M : 1950 Unit#: [id number] Attend Dr: Joshua Nicole MD Re12/20/23 Status: REG REF Location: [id number] Disch: SPEC : [id number] LIZZY: 12/20/23 STATUS: COMP REQ : [id number] RECD: 12/20/[address]: Joshua Nicole MD COMP: 12/20/23 ENTERED: 12/20/[address] [facility] DR: Gracie Mitchell [facility]- ORDERED: CBC Auto Diff Test Result Flag Reference WBC 6.1 4.8-10.8 X10*3/uL RBC 4.79 4.60-5.80 X10*6/uL HGB 14.7 14.0-18.0 g/dl HCT 42.8 42.0-52.0 % MCV 89.4 80.0-98.0 fL MCH 30.7 27.0-33.0 pg MCHC 34.3 31.0-36.0 g/dl Specimen warmed for presence of possible cold agglutinin. RDW 12.9 11.0-16.0 % PLT 179 160-400 X10*3/uL MPV 10.3 9.4-12.4 fL Neut Pct Auto 57.9 45-73 % ImGran Pct Auto 0.2 0.0-0.4 % Lymp Pct Auto 31.4 20-40 % Rowan Pct Auto 6.9 2-11 % Eos Pct Auto 3.1 0-4 % Baso Pct Auto 0.5 0-2 % NRBC Pct Auto 0.0 0.0-0.2 /100WBC ANC Neut Abs # 3.5 2.0-8.3 x10*3/uL ImGran Abs Auto 0.01 0.00-0.03 X10*3/uL Lymph Abs Auto 1.9 1.2-4.9 X10*3/uL Rowan Abs Auto 0.4 0.1-1.2 X10*3/uL Eos Abs Auto 0.2 0.0-0.4 X10*3/uL Baso Abs Auto 0.0 0.0-0.2 X10*3/uL NRBC Abs Auto 0.000 0.0-0.012 X10*3/uL END OF REPORT RUN: 12/20/23 1558 PAGE 1 [facility] [address] [place] [id number] Facing Baster Jumpbasting: Joshua Lafleur M.D. Specimen Inquiry Name: Jim Giraldo/Sex: 73/M : 1950 Unit#: [id number] Attend Dr: Joshua Nicole MD Re12/20/23 Status: REG REF Location: [facility] Disch: SPEC : [id number] LIZZY: 12/20/23 STATUS: COMP REQ : [id number] RECD: 12/20/[address]: Joshua Nicole MD COMP: 12/20/23 ENTERED: 12/20/[address]: Gracie Mitchell EMERGENCY ROOM SPECIALIST-BC ORDERED: CMP, TSH Rflx Test Result Flag Reference Sodium 139 135-145 mmol/L Potassium 4.2 3.3-5.1 mmol/L CL 103 96-108 mmol/L CO2 31 H 22-29 mmol/L Gap 9 L 12-20 BUN 17 H 9-16 mg/dL Creat 0.96 0.5-1.4 mg/dL EGFR > 60 NOTE: For -[place] individuals, multiply the result by 1.210. Chronic Kidney Disease: Estimated GFR < 60 mL/min/1.73m2 Severe Kidney Disease: Estimated GFR < 15 mL/min/1.73m2 Glucose, Random 90 60-115 mg/dL CA 9.6 # 8.4-10.2 mg/dL Total Bili 0.7 0.0-1.0 mg/dL AST (GOT) 20 5-37 U/L ALT (GPT) 23 0-40 U/L Protein, Total 6.7 6.5-8.0 g/dL Alb 4.2 3.5-5.0 g/dL Alk Phos 89 39-117 U/L TSH 1.78 0.32-4.0 uIU/mL END OF REPORT Coding Level of Care Code Est Pt Level 5 (59304) Complex EM visit Add On G2211 Diagnoses Mild cognitive impairment G31.84 Pre-diabetes R73.03 Thyroid nodule E04.1 Anemia, unspecified type D64.9 Anemia type: unspecified type Squamous cell carcinoma, tongue border C02.1 KALIE (generalized anxiety disorder) F41.1 Additional Codes KALIE-7 Assessment Billing - KALIE-7 Assessment Tool: KALIE-7 Assessment 16114 ([id number]) Assessment & Plan Assessment & Plan (1) Mild cognitive impairment: Code(s): G31.84 - Mild cognitive impairment of uncertain or unknown etiology Category: Medical Plan: . (2) Pre-diabetes: Code(s): R73.03 - Prediabetes Category: Medical Plan: . (3) Thyroid nodule: Comment: annual fu 2 thyroid nodules Left mid TR4 1.4x1.4x1.4 cm Right mid TR3 0.44x0.42x0.37 Last US 06/03/23 Code(s): E04.1 - Nontoxic single thyroid nodule Category: Medical Plan: . (4) Anemia: Code(s): D64.9 - Anemia, unspecified Category: Medical Qualifiers: Anemia type: unspecified type Qualified Code(s): D64.9 - Anemia, unspecified Plan: . (5) Squamous cell carcinoma, tongue border: Code(s): C02.1 - Malignant neoplasm of border of tongue Category: Medical Plan: . (6) KALIE (generalized anxiety disorder): Code(s): F41.1 - Generalized anxiety disorder Category: Medical Plan: . Orders: Orders AMB Hemoglobin A1c Today R73.03 - Prediabetes, Z13.9 - Encounter for screening, unspecified US thyroid 05/09/24 E04.1 - Nontoxic single thyroid nodule Comprehensive Met. Panel Today D64.9 - Anemia, unspecified, E04.1 - Nontoxic single thyroid nodule, R73.03 - Prediabetes LDL Cholesterol Direct Today D64.9 - Anemia, unspecified, E04.1 - Nontoxic single thyroid nodule, R73.03 - Prediabetes Medications: New donepezil (Aricept) 5 mg PO BEDTIME 30 tabs 0RF Discontinued doxycycline hyclate Discontinued Reason: Patient Completed Course 100 mg PO BID 20 tabs 0RF
[2023-12-20 09:57] VITALS: BP 122/68; PULSE 85; RESP 14; O2SAT 96; BMI 27.6
== END 2023-12-20 12:56 | disposition home or self-care (01) ==
PROVIDERS: PCP Family Medicine; Visit Provider Nurse Practitioner Family
DX: G31.84 Mild cognitive impairment of uncertain or unknown etiology (principal); C02.1 Malignant neoplasm of border of tongue; R73.03 Prediabetes; E04.1 Nontoxic single thyroid nodule; D64.9 Anemia, unspecified; F41.1 Generalized anxiety disorder

== ENCOUNTER → 2023-12-20 09:47 | Outpatient (BNVA) | payer MEDICARE, SELFPAY | PROVIDERS: PCP Family Medicine; Visit Provider Nurse Practitioner Family ==

== ENCOUNTER 2023-12-20 11:02 | Outpatient (REF) | payer MEDICARE, SELFPAY ==
[2023-12-20 14:07] LABS: MANUAL DIFF FLAG NO
[2023-12-20 14:22] LABS: Appearance Urine Clear; Color Urine Yellow; Glucose Urine UA Negative (Negative); Leukocyte Esterase Urine Negative (Negative); Nitrite Urine Negative (Negative); PH 6.5 (5.0-9.0); Specific Gravity - Urine <= 1.005 (1.005-1.025); Urine Blood Negative (Negative); Urine Ketones Negative (Negative); Urine Protein Negative (Neg-Trace)
[2023-12-20 14:29] LABS: Alanine Aminotransferase 23 U/L (0-40); Albumin Level 4.2 g/dL (3.5-5.0); Alkaline Phosphatase 89 U/L (39-117); Anion Gap 9 (12-20); Aspartate Amino Transferase 20 U/L (5-37); Bilirubin Total 0.7 mg/dL (0.0-1.0); Blood Urea Nitrogen 17 mg/dL (9-16); Calcium 9.6 mg/dL (8.4-10.2); Carbon Dioxide 31 mmol/L (22-29); Chloride 103 mmol/L (96-108); Estimated Glomerular Filt Rate > 60; Glucose Random 90 mg/dL (60-115); Potassium 4.2 mmol/L (3.3-5.1); Sodium 139 mmol/L (135-145); Total Protein 6.7 g/dL (6.5-8.0)
[2023-12-20 14:36] LABS: Basophils Percent Auto 0.5 % (0-2); Eosinophils Absolute Auto 0.2 X10*3/uL (0.0-0.4); Eosinophils Percent Auto 3.1 % (0-4); Hematocrit 42.8 % (42.0-52.0); Hemoglobin 14.7 g/dl (14.0-18.0); Imm Gran Abs Auto 0.01 X10*3/uL (0.00-0.03); Imm Gran Pct Auto 0.2 % (0.0-0.4); Lymphocytes Absolute Auto 1.9 X10*3/uL (1.2-4.9); Lymphocytes Percent Auto 31.4 % (20-40); Mean Corpuscular Hemoglobin 30.7 pg (27.0-33.0); Mean Corpuscular Volume 89.4 fL (80.0-98.0); Mean Platelet Volume 10.3 fL (9.4-12.4); Monocytes Absolute Auto 0.4 X10*3/uL (0.1-1.2); Monocytes Percent Auto 6.9 % (2-11); Neutrophils Absolute Auto 3.5 x10*3/uL (2.0-8.3); Neutrophils Percent Auto 57.9 % (45-73); Platelet Count 179 X10*3/uL (160-400); Red Blood Count 4.79 X10*6/uL (4.60-5.80); Red Cell Distribution Width 12.9 % (11.0-16.0); White Blood Count 6.1 X10*3/uL (4.8-10.8)
[2023-12-20 14:38] LABS: Mean Corpuscular HGB Conc 34.3 g/dl (31.0-36.0)
[2023-12-20 14:45] LABS: TSH reflex Free T4 1.78 uIU/mL (0.32-4.0)
[2023-12-20 14:48] LABS: Prostate Specific Antigen Scr 0.32 ng/mL (<0.05-4.0)
[2023-12-20 15:01] LABS: Creatinine Urine 25.93 mg/dL; Microalbumin Urine < 5.0 mg/L
[2023-12-23 07:43] LABS: LDL Cholesterol Direct 104 mg/dL (<100)
== END 2023-12-20 11:03 | disposition home or self-care (01) ==
LOC: HO.WFDLDS 11:02
PROVIDERS: Referring Provider Nurse Practitioner Family; Visit Provider Family Medicine
DX: G31.84 Mild cognitive impairment of uncertain or unknown etiology (principal); R73.03 Prediabetes; E04.1 Nontoxic single thyroid nodule; D64.9 Anemia, unspecified; C02.1 Malignant neoplasm of border of tongue; F41.1 Generalized anxiety disorder; Z00.00 Encounter for general adult medical examination without abnormal findings; I10 Essential (primary) hypertension; Z12.5 Encounter for screening for malignant neoplasm of prostate
CPT/HCPCS: 36415; 80053; 81003; 82043; 82570; 83036; 83721; 84153; 84443; 85025; 96127; 99212

== ENCOUNTER 2024-04-28 08:53 | Outpatient (REF) | payer MEDICARE, SELFPAY ==
--- OUTSIDE RECORDS SUMMARY | 2024-04-28 09:24 | XMS_ITS | Clinical Summary ---
Author Organization [facility] Address [address] [place] [address] Care Team Providers Care Airplane Engineer Name Role Phone Unavailable Primary Care Provider Unavailabl e Allergies Active Allergy Reactions Criticality Noted Date Comments Penicillin V Anaphylaxis High 09/08/2021 Medications Medication Sig Dispensed Refills Start Date End Date Status atorvastatin (LIPITOR) 20 MG tablet Take 20 mg by mouth daily. Active tamsulosin (FLOMAX) 0.4 MG capsule Take 0.4 mg by mouth daily. Active finasteride (PROPECIA) 1 MG tablet Take 1 mg by mouth daily. Active cetirizine (ZyrTEC) 10 MG tablet Take 10 mg by mouth daily. Active PANTOprazole (PROTONIX) 20 MG tablet Take 20 mg by mouth every morning before breakfast. Active risperiDONE (RisperDAL) 0.25 MG tablet Take 0.25 mg by mouth 2 (two) times a day. Active benzonatate (TESSALON) 200 MG capsuleIndications:V iral URI with cough Take 1 capsule (200 mg total) by mouth 3 (three) times a day as needed for cough. 20 capsule 09/08/2021 Active proMETHAZINE-dextrom ethorphan (proMETHAZINE-DM) 6.25-15 MG/5ML syrupIndications:Vir al URI with cough Take 5 mL by mouth 4 times daily (every 6 hours) as needed for cough. 120 mL 09/08/2021 Active Active Problems No known active problems Social History Tobacco Use Types Packs/Day Years Used Date Smoking Tobacco: Never Assessed Sex and Gender Information Value Date Recorded Sex Assigned at Not on file Gender Identity Not on file Sexual Orientation Not on file Last Filed Vital Signs Vital Sign Reading Time Taken Comments Blood Pressure 97/64 09/08/2021 8:16 AM EDT Pulse 100 09/08/2021 8:16 AM EDT Temperature 36.6 ??C (97.9 ??F) 09/08/2021 8:16 AM ED T Respiratory Rate - - Oxygen Saturation 97% 09/08/2021 8:16 AM EDT Inhaled Oxygen Concentration - - Weight 77.1 kg (170 lb) 09/08/2021 8:16 AM EDT Height - - Body Mass Index - - Plan of Treatment Health Maintenance Due Date Last Done Comments Hepatitis C Virus Screening 1950 DTaP/Tdap/Td Vaccines (1 - Tdap) 1969 Colonoscopy 11/05/1995 Pneumococcal Vaccines 50+ (1 of 1 - PCV) 2000 Zoster (Shingles) Vaccine (1 of 2) 2000 Influenza Vaccine 10/10/2023 COVID-19 Vaccine ( - 2023-2 5 season) 2023 RSV Vaccine 60 years and old er and Patients (1 - 1-dose 75+ series) 2025 Hepatitis B Vaccines Aged Out No long er eligible based on patient's age to complete this topic
== END 2024-04-28 08:54 | disposition home or self-care (01) ==
LOC: HO.US 08:53
PROVIDERS: PCP Family Medicine; Visit Provider Nurse Practitioner Family
DX: E04.1 Nontoxic single thyroid nodule (principal)
CPT/HCPCS: 76536

== ENCOUNTER → 2024-04-28 08:55 | Outpatient (BNV) | payer MEDICARE, SELFPAY | PROVIDERS: PCP Family Medicine; Visit Provider Radiology Diagnostic Radiology | DX: E04.1 Nontoxic single thyroid nodule (principal) | CPT/HCPCS: 76536 ==

== ENCOUNTER 2024-05-19 11:53 | Outpatient (AMB) | payer MEDICARE, SELFPAY ==
--- NOTE | 2024-05-19 12:29 | MHC.PC.OV ---
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: No Allergies penicillamine Allergy (Intermediate, Verified 05/19/24 12:43) respiratory as child Penicillins Allergy (Verified 05/19/24 12:43) Respiratory problems as Medication List - Last Reconciled 05/19/24 by Joshua Nicole MD albuterol sulfate 90 mcg/actuation 2 puffs inhalation Q4-6H PRN atorvastatin 20 mg PO DAILY 90 days cetirizine (Zyrtec) 10 mg PO DAILY donepezil 10 mg PO BEDTIME 90 days finasteride 5 mg PO DAILY 90 days gabapentin 600 mg PO BEDTIME 90 days bq-jpp-sjqbo-J7-molbbcl-ajbhfg 312-55-252-300 mcg (Centrum Silver Ultra Men's) 1 tab PO DAILY pantoprazole 40 mg PO DAILY 90 days tamsulosin 0.8 mg (2 x 0.4 mg) PO DAILY 90 days Tobacco use date assessed: 08/16/23 Dental Screening Dental Screen Date: 04/11/23 HPI [address] Norberto ARREOLA of thyroid and chronic HPI Details 73 y/o male presents to f/u thyroid nodule. Ultrasound 04/28/24. Per note: The right thyroid lobe measures 4.0 x 1.9 x 1.6 cm. The left thyroid lobe measures 4.5 x 1.7 x 1.9 cm. The isthmus measures 2 mm. Lower pole of the right thyroid lobe measuring 5 x 4 x 4 mm (previously 6 x 3 x 5 mm). Location: Interpolar region of the left thyroid lobe measuring 1.5 x 1.5 x 1.4 cm (previously 1.5 x 1.4 x 1.2 cm). Reports ongoing lightheadedness. Denies chest pain. He notes he had a sleep study which showed sleep apnea. Had trouble setting up his CPAP machine. Reports depression/anxiety. Worsening cognitive impairments. Has had thoughts of harming himself but he mentions he feels he could never do it due to his kids. Denies any plan. [facility] Medical History (Updated 05/19/24 @ 13:35 by Joshua Nicole MD) Squamous cell carcinoma, tongue border Surgical History History of tonsillectomy Family History (Updated 08/16/23 @ 14:[address] 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 1. Little interest or pleasure in doing things: several days 2. Feeling down, depressed, or hopeless: several days 3. Trouble falling or staying asleep, or sleeping too much: more than half the days 4. Feeling tired or having little energy: more than half the days 5. Poor appetite or overeating: nearly every day 6. Feeling bad about yourself - or that you are a failure or have let yourself or your family down: several days 7. Trouble concentrating on things, such as reading the newspaper or watching television: more than half the days 8. Moving or speaking so slowly that other people could have noticed. Or the opposite - being so fidgety or restless that you have been moving around a lot more than usual: not at all 9. Thoughts that you would be better off or of hurting yourself in some way: several days Total score: 13 Source: Developed by Drs. Barry Marquez, Diane Dominguez, Chapito He and colleagues, with an educational bina from [employer]. Thrive Questionnaire Date Thrive assessed: 12/20/23 I am a: Patient What is your living situation today?: I have a steady place to live Within the past 12 months, did the food you bought not last and you didn't have the money to get more?: Never true Within the past 12 months, did you worry whether your food would run out before you got money to buy more?: Never true Do you have trouble paying for medicines?: No Do you have trouble getting transportation to medical appointments?: No Do you have trouble paying your heating and electricity bill?: No Do you have trouble taking care of your child, family member or friend?: No Do you have trouble with day-to-day activities such as bathing, preparing meals, shopping, managing finances, etc.?: No Are you currently unemployed and looking for a job?: No Are you interested in more education?: No Please select the resources that you would like help with: None Currently or been in a relationship where the following occur: I choose not to answer THRIVE Score: 0 AUDIT C Alcohol Use Questionnaire (AUDIT-C) 1. How often do you have a drink containing alcohol?: 2-4 times a month 2. How many drinks containing alcohol do you have on a typical day when you are drinking?: 1 or 2 3. How often do you have six or more drinks on one occasion?: Never Total Score: 2 KALIE-7 AMB Questionnaire KALIE-7 Date KALIE - 7 assessed: 12/20/23 Feeling nervous, anxious, or on edge: 1 = Several days Not being able to stop or control worryin = Several days Worrying too much about different things: 1 = Several days Trouble relaxin = More than half the days Being so restless that it is hard to sit still: 0 = Not at all Becoming easily annoyed or irritable: 1 = Several days Feeling afraid as if something awful might happen: 0 = Not at all Total KALIE-7 score (0-4 normal; 5-9 mild; 10-14 moderate; 15-21 severe): 6 Source: Developed by Drs. Barry Marquez, Diane Dominguez, Chapito He and colleagues, with an educational bina from [employer]. Review of Systems Const Denies chills, Denies fatigue, Denies fever(s), Denies headache(s) and Denies weakness ENT Denies dizziness and Denies headache(s) Card Denies chest pain, Denies lightheadedness, Denies dyspnea and Denies other (Palpitations) Resp Denies cough, Denies dyspnea, Denies wheezing and Denies other ( shortness of breath) Musc Denies numbness and Denies tingling Neuro Denies dizziness, Denies headache(s), Denies numbness, Denies tingling, Denies paresthesias and Denies weakness Psych Reports anxiety and Reports depression Endo Denies fatigue Aller/Immun Denies wheezing Physical exam (Primary Care) Vital Signs: Last Vital Signs Temp 97.9 F 05/19/24 12:44 Pulse 68 05/19/24 12:44 Resp 14 05/19/24 12:44 BP 100/64 05/19/24 12:44 Pulse Ox 98 05/19/24 12:44 Oxygen Delivery Method Room Air 05/19/24 12:44 BMI result Body Mass Index 27.2 Tobacco/Smoking Status: Tobacco use Status Tobacco use date assessed 08/16/23 05/19/24 12:29 Patient Tobacco Use Status Former Tobacco user 05/19/24 12:29 Tobacco use type Cigarette 05/19/24 12:29 e-Cigarette/Vaping Use Never Used 05/19/24 12:29 PHQ-9: PHQ-9 Score PHQ-9: Total score 13 05/19/24 12:29 Thrive Assessment: Date of Thrive Assessment Date Thrive assessed 12/20/23 05/19/24 12:29 Currently or been in a relationship where the following occur: I choose not to answer Const General: no acute distress and well developed Nutritional Appearance: well nourished Orientation/consciousness: patient oriented x3 [facility] Head: Yes normocephalic and Yes atraumatic Eyes General: appearance normal, both eyes and all related structures Pupils: Equal, round and reactive pupils present EOM: EOMs intact bilaterally Resp Effort & Inspection: normal respiratory effort Auscultation: clear to auscultation bilaterally Cardio Rate: regular rate Rhythm: regular rhythm Heart sounds: S1 normal heart sound present, S2 normal heart sound present, no gallops, no murmurs and no rubs Neuro General: patient oriented x3 and gait normal Cranial nerves: Yes Equal, round and reactive pupils present Psych Affect: normal affect Coding Level of Care Code Est Pt Level 4 (55013) Diagnoses Thyroid nodule E04.1 Mild cognitive impairment G31.84 Lightheadedness R42 Sleep apnea G47.30 Depression with anxiety F41.8 Urinary hesitancy R39.11 Suicidal ideations R45.851 Assessment & Plan Assessment & Plan (1) Thyroid nodule: Comment: annual fu 2 thyroid nodules Left mid TR4 1.4x1.4x1.4 cm Right mid TR3 0.44x0.42x0.37 Last US 06/03/23 Code(s): E04.1 - Nontoxic single thyroid nodule Category: Medical Plan: Ultrasound stable recommends ongoing annual screening for left thyroid nodule (2) Mild cognitive impairment: Code(s): G31.84 - Mild cognitive impairment of uncertain or unknown etiology Category: Medical Plan: worsening cognitive impairment precipitating depression - see below will also have him get a new sleep study-see below (3) Lightheadedness: Code(s): R42 - Dizziness and giddiness Category: Medical Plan: hydrate well maintain appropriate blood pressure will continue to monitor (4) Sleep apnea: Code(s): G47.30 - Sleep apnea, unspecified Category: Medical Plan: referred to Sleep Medicine history of diagnosis sleep apnea patient does not have a CPAP machine (5) Depression with anxiety: Code(s): F41.8 - Other specified anxiety disorders Category: Medical Plan: increased depression with passive SI. No plan he has seen neuropsychiatry in the past and diagnosed with cognitive impairment this appears to be worsening and precipitate worsened depression. He opts not to follow-up with neuropsychiatry as he does not feel they do much for his cognitive decline. Will refer to [facility] psychiatric consult for depression. (6) Urinary hesitancy: Code(s): R39.11 - Hesitancy of micturition Category: Medical Plan: Referred to Urology patient is on tamsulosin which could be worsening mental state as well referred him back to his urologist, Dr. Hart at [facility] (7) Suicidal ideations: Code(s): R45.851 - Suicidal ideations Category: Medical Plan: as above, patient is referred to the [facility] psychiatric consult team no current plan. Patient contracts for safety Orders: Referrals Psychiatry Outpatient Consultation Service F41.8 - Other specified anxiety disorders, G31.84 - Mild cognitive impairment of uncertain or unknown etiology, R45.851 - Suicidal ideations Urology Referral R39.11 - Hesitancy of micturition Sleep Medicine Referral G47.30 - Sleep apnea, unspecified, G47.61 - Periodic limb movement disorder
[2024-05-19 12:44] VITALS: BP 100/64; PULSE 68; RESP 14; TEMP 36.6; O2SAT 98; BMI 27.2
--- OUTSIDE RECORDS SUMMARY | 2024-05-19 14:39 | XMS_ITS ---
Author Name [facility] Organization Unknown Encounters Encounter Type Encounter Reason Primary Diagnosis Location Date Ambulatory Acute upper respiratory infection, unspecified [facility] 09/08/2021
--- OUTSIDE RECORDS SUMMARY | 2024-05-19 14:39 | XMS_ITS | Clinical Summary ---
Author Organization [facility] Address [address] [place] [address] Care Team Providers Care Seamer Name Role Phone Unavailable Primary Care Provider [...]
== END 2024-05-19 13:33 | disposition home or self-care (01) ==
LOC: HO.HMCFM 11:54
PROVIDERS: PCP Family Medicine; Visit Provider Family Medicine
DX: E04.1 Nontoxic single thyroid nodule (principal); G31.84 Mild cognitive impairment of uncertain or unknown etiology; R42 Dizziness and giddiness; G47.30 Sleep apnea, unspecified; F41.8 Other specified anxiety disorders; R39.11 Hesitancy of micturition; R45.851 Suicidal ideations

== ENCOUNTER → 2024-05-19 11:53 | Outpatient (BNVA) | payer MEDICARE, SELFPAY | PROVIDERS: PCP Family Medicine; Visit Provider Family Medicine | DX: E04.1 Nontoxic single thyroid nodule (principal); G31.84 Mild cognitive impairment of uncertain or unknown etiology; R42 Dizziness and giddiness; G47.30 Sleep apnea, unspecified; F41.8 Other specified anxiety disorders; R39.11 Hesitancy of micturition; R45.851 Suicidal ideations | CPT/HCPCS: 99212 ==

== ENCOUNTER 2024-05-26 09:58 | Outpatient (AMB) | payer MEDICARE, SELFPAY ==
--- NOTE | 2024-05-26 11:02 | A.OFFPSYCH_ITS ---
Intake Intake Visit Reasons: consultation Supervisor Shaving And Splitting Required: No Allergies penicillamine Allergy (Intermediate, Verified 05/19/24 12:43) respiratory as child Penicillins Allergy (Verified 05/19/24 12:43) Respiratory problems as infant Medication List - Last Reconciled 05/26/24 by Vero Atkinson APRN albuterol sulfate 90 mcg/actuation 2 puffs inhalation Q4-6H PRN atorvastatin 20 mg PO DAILY 90 days cetirizine (Zyrtec) 10 mg PO DAILY donepezil 10 mg PO BEDTIME 90 days finasteride 5 mg PO DAILY 90 days fluticasone propionate 50 mcg/actuation (Flonase Allergy Relief) 1 spray intranasal Q12H 30 days gabapentin 600 mg PO BEDTIME 90 days ie-hlu-wzlfe-T4-misdkpi-hrnggf 140-81-829-300 mcg (Centrum Silver Ultra Men's) 1 tab PO DAILY pantoprazole 40 mg PO DAILY 90 days polyethylene glycol 3350 (Miralax) 17 grams PO DAILY 14 days tamsulosin 0.8 mg (2 x 0.4 mg) PO DAILY 90 days HPI- Psychiatric Chief Complaint: consultation HPI Narrative: Patient is referred by his primary care physician for evaluation and treatment of depression. Patient reports that he has been having difficulty with short- term memory he has had testing by neuropsychologist Josh crystal I have reviewed the testing in 2022. It appears he had a repeat testing in April of this year but the results are not available at this time. In 2022 he was shown to have scores that were average to above average in many areas on the testing the testing did point out that he had sleep apnea and depression which were likely affecting his cognition. 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 His mother at the age of 94 and she had dementia and he is convinced that he is going to suffer the same fate he has thoughts that he would be better off although he is very clear that he would never try to hurt himself or tried to kill himself that he would not do that because of his children. He reports difficulty concentrating he reports feeling tired and having little energy he reports overeating at times. Past Psychiatric History: outpatient t with zoloft Subjective Subjective Subjective Medication Compliance: Yes Side effects from medications: No Review of Systems Medical Review of Systems: unchanged Mental Status Exam Mental Status Exam Patient Appearance: Appropriate (casually dressed, unshaven, dressed appropriately for weather and season) Patient Orientation: Person, Place, Time and Situation Level of Consciousness: Awake and Appropriate Patient Behavior: Appropriate, Cooperative and Passive Mood Description: Withdrawn and Depressed Affect Description: Withdrawn, Depressed and Flat Ability to Follow Directions: Good Speech Pattern: Clear (making jokes, 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), Spontaneous Speech and Coherent Memory Description: Recent Impaired Hallucinations: None Delusions: Not Present Thought Process: Distracted Thought Content: positive for Poverty of Content, positive for Preoccupation and positive for Loose Associations Judgement: Fair Assessment and Plan Assessment & Plan (1) Major depressive disorder, single episode, moderate: Status: Acute Code(s): F32.1 - Major depressive disorder, single episode, moderate Plan Strongly urge patient to start Cymbalta 30 mg daily and to follow-up care regarding sleep apnea Await results of most recent neuropsych testing Medications: New duloxetine (Cymbalta) 30 mg PO DAILY 30 caps 0RF Counseling and coordination of Care Pt. Self Management counseling: Maintenance-social rhythm, Med illness tx adherence, Mod caffeine/ETOH intake, Nutrition education and improvement, Sleep hygiene, General coping skills and Problem solving Medication management counseling: Effectiveness, Side effects, Dosing range, Duration, Drug interaction and Adherence Diagnosis and Prognosis Counseling: Accuracy of diagnosis, Prognosis over time, Impact of diagnosis on life functions, Impact of family relationship, Problematic behaviors secondary to diagnosis and Adequacy of current interventions Details: I spent 70 minutes reviewing the record, seeing the patient and documenting in the medical record. Counseling provided to the patient/caregiver as outlined below. Addressed patient/caregiver concerns regarding current medication regime including effective adherence. Addressed patient/caregiver concerns regarding diagnosis and prognosis including accuracy of diagnosis, prognosis over time, impact of diagnosis. Addressed patient/caregiver concerns regarding impact of recent stressors. [facility] Medical History (Updated 05/26/24 @ 11:06 by Vero Atkinson APRN) Squamous cell carcinoma, tongue border Surgical History History of tonsillectomy Family History (Updated 08/16/23 @ 14:09 by Elvia Corrales [facility]) Mother Mental health disorder Daughter Celiac disease Unknown Celiac disease Social History Housing: House Alcohol intake: current Alcohol intake frequency: a few times a month Patient Tobacco Use Status: Former Tobacco user Tobacco use type: Cigarette Cigarette Packs Per Day: 1 e-Cigarette/Vaping Use: Never Used Second Hand Smoke Exposure: No service: No Current occupational status: employed and other 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 Current occupational exposures/hazards: No Cognitive needs: Yes (has trouble with memory ) Hearing needs: Yes (has hearing aids) Vision needs: No Social History: Patient lives by himself he has a long-time girlfriend with whom he spends a significant amount of time he has adult children and grandchildren with whom he spends time with many times a week he has siblings that he is close to in spends time with 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
--- OUTSIDE RECORDS SUMMARY | 2024-05-26 11:15 | XMS_ITS | Clinical Summary ---
Author Organization [facility] Address [address] [place] [address] Care Team Providers Care Umbrella Repairer Name Role Phone Unavailable Primary Care Provider [...]
== END 2024-05-26 11:15 | disposition home or self-care (01) ==
LOC: HO.HOP 09:58
PROVIDERS: PCP Family Medicine; Visit Provider Clinical Nurse Specialist Psychiatric/Mental Health
DX: F32.1 Major depressive disorder, single episode, moderate (principal)
CPT/HCPCS: 90792

== ENCOUNTER → 2024-05-26 09:58 | Outpatient (BNVA) | payer MEDICARE, SELFPAY | PROVIDERS: PCP Family Medicine; Visit Provider Clinical Nurse Specialist Psychiatric/Mental Health | DX: F32.1 Major depressive disorder, single episode, moderate (principal) | CPT/HCPCS: 90792 ==

== ENCOUNTER 2024-06-23 09:25 | Outpatient (AMB) | payer MEDICARE, SELFPAY ==
--- NOTE | 2024-06-23 09:56 | MHC.OFFVISPS ---
Intake Intake Visit Reasons: consultation Equipment Operat0R Required: No Allergies penicillamine Allergy (Intermediate, Verified 05/19/24 12:43) respiratory as child Penicillins Allergy (Verified 05/19/24 12:43) Respiratory problems as infant Medication List - Last Reconciled 06/23/24 by Vero Atkinson APRN albuterol sulfate 90 mcg/actuation 2 puffs inhalation Q4-6H PRN atorvastatin 20 mg PO DAILY 90 days cetirizine (Zyrtec) 10 mg PO DAILY donepezil 10 mg PO BEDTIME 90 days finasteride 5 mg PO DAILY 90 days fluticasone propionate 50 mcg/actuation (Flonase Allergy Relief) 1 spray intranasal Q12H 30 days gabapentin 600 mg PO BEDTIME 90 days mg-rmg-nedti-A1-dtvgawl-eqtfmy [id number] mcg (Centrum Silver Ultra Men's) 1 tab PO DAILY pantoprazole 40 mg PO DAILY 90 days polyethylene glycol 3350 (Miralax) 17 grams PO DAILY 14 days tamsulosin 0.8 mg (2 x 0.4 mg) PO DAILY 90 days HPI- Psychiatric Chief Complaint: consultation HPI Narrative: pt reports continued depression and anxiety. he reports side effects with cymbalta caused double vision and he stoppedit. continues to struggle with memory problems but aware and able to manage most of the time and has support from close friend and family. continues to have passive SI but no plan and no intent. Pt has found that running for 30 minutes helps his mood and cognition so he is running daily. Past Psychiatric History: outpatient t with zoloft Subjective Subjective Subjective Medication Compliance: Yes Side effects from medications: No Review of Systems Medical Review of Systems: unchanged Mental Status Exam Mental Status Exam Patient Appearance: Appropriate Patient Orientation: Person, Place, Time and Situation Level of Consciousness: Awake and Alert Patient Behavior: Appropriate and Cooperative Mood Description: Depressed Affect Description: Depressed Patient Cognition Impaired: Yes Ability to Follow Directions: Fair (needs written instructions) Speech Pattern: Difficulty Finding Words Memory Description: Episodic Impaired Hallucinations: None Delusions: Not Present Thought Process: Intact and Goal Oriented Thought Content: positive for Intact, positive for Goal Oriented and positive for Suicidal Ideation (passive ideation with no plan and no intent) Judgement: Fair Assessment and Plan Assessment & Plan (1) Major depressive disorder, single episode, moderate: Status: Acute Code(s): F32.1 - Major depressive disorder, single episode, moderate Plan stop cymbalta start remeron 3.75 mg at bedtime Medications: New mirtazapine 3.75 mg (1/2 x 7.5 mg) PO BEDTIME 45 tabs 1RF Discontinued duloxetine (Cymbalta) Discontinued Reason: Doctor's Order 30 mg PO DAILY 30 caps 0RF Counseling and coordination of Care Pt. Self Management counseling: Maintenance-social rhythm, Med illness tx adherence, Mod caffeine/ETOH intake, Nutrition education and improvement, Sleep hygiene, Behavior activation, Cognitive restructuring and General coping skills Medication management counseling: Effectiveness, Side effects, Dosing range, Duration, Drug interaction and Adherence Diagnosis and Prognosis Counseling: Accuracy of diagnosis, Prognosis over time, Impact of diagnosis on life functions, Impact of family relationship, Problematic behaviors secondary to diagnosis and Adequacy of current interventions Details-Diagnosis/Prognosis counseling: discussed end of rod care planning and he will work with professional to make a living will Details: I spent 45 minutes reviewing the record, seeing the patient and documenting in the medical record. Counseling provided to the patient/caregiver as outlined below. Addressed patient/caregiver concerns regarding current medication regime including effective adherence. Addressed patient/caregiver concerns regarding diagnosis and prognosis including accuracy of diagnosis, prognosis over time, impact of diagnosis. Addressed patient/caregiver concerns regarding impact of recent stressors. [facility] Medical History (Updated 05/26/24 @ 11:06 by Vero Atkinson APRN) Squamous cell carcinoma, tongue border Surgical History History of tonsillectomy Family History (Updated 08/16/23 @ 14:09 by Elvia Corrales [facility]) Mother Mental health disorder Daughter Celiac disease Unknown Celiac disease Social History Housing: House Alcohol intake: current Alcohol intake frequency: a few times a month Patient Tobacco Use Status: Former Tobacco user Tobacco use type: Cigarette Cigarette Packs Per Day: 1 e-Cigarette/Vaping Use: Never Used Second Hand Smoke Exposure: No service: No Current occupational status: employed and other 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 Current occupational exposures/hazards: No Cognitive needs: Yes (has trouble with memory ) Hearing needs: Yes (has hearing aids) Vision needs: No Social History: Patient lives by himself he has a long-time girlfriend with whom he spends a significant amount of time he has adult children and grandchildren with whom he spends time with many times a week he has siblings that he is close to in spends 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
--- OUTSIDE RECORDS SUMMARY | 2024-06-23 10:28 | XMS_ITS | Clinical Summary ---
Author Organization [facility] Address [address] [place] [address] Care Team Providers Care Lan Specialist Name Role Phone Unavailable Primary Care Provider [...]
== END 2024-06-23 10:49 | disposition home or self-care (01) ==
LOC: HO.HOP 09:25
PROVIDERS: PCP Family Medicine; Visit Provider Clinical Nurse Specialist Psychiatric/Mental Health
DX: F32.1 Major depressive disorder, single episode, moderate (principal)
CPT/HCPCS: 99215

== ENCOUNTER → 2024-06-23 09:25 | Outpatient (BNVA) | payer MEDICARE, SELFPAY | PROVIDERS: PCP Family Medicine; Visit Provider Clinical Nurse Specialist Psychiatric/Mental Health | DX: F32.1 Major depressive disorder, single episode, moderate (principal) | CPT/HCPCS: 99212 ==

== ENCOUNTER 2024-07-23 10:14 | Outpatient (AMB) | payer MEDICARE, SELFPAY ==
--- NOTE | 2024-07-23 10:48 | A.OFFPSYCH_ITS ---
Intake Intake Visit Reasons: f/u consultation Portrait Consultant Required: No Allergies penicillamine Allergy (Intermediate, Verified 05/19/24 12:43) respiratory as child Penicillins Allergy (Verified 05/19/24 12:43) Respiratory problems as infant Medication List - Last Reconciled 07/23/24 by Vero Atkinson APRN albuterol sulfate 90 mcg/actuation 2 puffs inhalation Q4-6H PRN atorvastatin 20 mg PO DAILY 90 days cetirizine (Zyrtec) 10 mg PO DAILY donepezil 10 mg PO BEDTIME 90 days finasteride 5 mg PO DAILY 90 days fluticasone propionate 50 mcg/actuation (Flonase Allergy Relief) 1 spray intranasal Q12H 30 days gabapentin 600 mg PO BEDTIME 90 days mirtazapine 3.75 mg (1/2 x 7.5 mg) PO BEDTIME [id number] 112-70-399-300 mcg (Centrum Silver Ultra Men's) 1 tab PO DAILY pantoprazole 40 mg PO DAILY 90 days polyethylene glycol 3350 (Miralax) 17 grams PO DAILY 14 days tamsulosin 0.8 mg (2 x 0.4 mg) PO DAILY 90 days HPI- Psychiatric Chief Complaint: f/u consultation HPI Narrative: pt seen for follow up for depression, anxiety and sleep. he started the remeron and was taking 7.5mg instead of half the tablet 3.75mg . He tolerated it well and thinks it may be helping; he no longer has suicidal ideation, no plan nor intention. He is less anxious; he does continue to have some anxiety and forgetfulness. he sauys he has been forgetful and scattered all his life but it has increased. Hi PHQ9=5 and his KALIE&= 11. Past Psychiatric History: outpatient t with zoloft Subjective Subjective Subjective Medication Compliance: Yes Side effects from medications: No Review of Systems Medical Review of Systems: unchanged Mental Status Exam Mental Status Exam Patient Appearance: Well Grooomed and Appropriate Patient Orientation: Person, Place, Time and Situation Level of Consciousness: Awake and Appropriate Patient Behavior: Appropriate Mood Description: Cheerful and Anxious Affect Description: Cheerful and Anxious Patient Cognition Impaired: Yes Ability to Follow Directions: Fair Speech Pattern: Clear and Rapid Memory Description: Remote Impaired, Immediate Impaired, Snf Impaired and Recent Impaired Hallucinations: None Delusions: Not Present Thought Process: Intact and Goal Oriented Thought Content: positive for Intact and positive for Goal Oriented Judgement: Good Assessment and Plan Assessment & Plan (1) Major depressive disorder, single episode, moderate: Status: Acute Code(s): F32.1 - Major depressive disorder, single episode, moderate (2) KALIE (generalized anxiety disorder): Status: Acute Code(s): F41.1 - Generalized anxiety disorder Plan Continue remeron 7.5mg in evening approximately 2 hours before bedtime return in 4 weeks for follow up Medications: Changed From mirtazapine 3.75 mg (1/2 x 7.5 mg) PO BEDTIME 45 tabs 1RF To mirtazapine 7.5 mg PO BEDTIME 90 tabs 1RF Counseling and coordination of Care Pt. Self Management counseling: Maintenance-social rhythm, Mod caffeine/ETOH intake, Nutrition education and improvement and Sleep hygiene Medication management counseling: Effectiveness, Side effects, Dosing range, Duration, Drug interaction and Adherence Diagnosis and Prognosis Counseling: Accuracy of diagnosis, Impact of diagnosis on life functions and Adequacy of current interventions Details: I spent 35 minutes reviewing the record, seeing the patient and documenting in the medical record. Counseling provided to the patient/caregiver as outlined below. Addressed patient/caregiver concerns regarding current medication regime including effective adherence. Addressed patient/caregiver concerns regarding diagnosis and prognosis including accuracy of diagnosis, prognosis over time, impact of diagnosis. Addressed patient/caregiver concerns regarding impact of recent stressors. [facility] Medical History (Updated 05/26/24 @ 11:06 by Vero Atkinson APRN) Squamous cell carcinoma, tongue border Surgical History History of tonsillectomy Family History (Updated 08/16/23 @ 14:09 by Elvia Corrales [facility]) Mother Mental health disorder Daughter Celiac disease Unknown Celiac disease Social History Housing: House Alcohol intake: current Alcohol intake frequency: a few times a month Patient Tobacco Use Status: Former Tobacco user Tobacco use type: Cigarette Cigarette Packs Per Day: 1 e-Cigarette/Vaping Use: Never Used Second Hand Smoke Exposure: No service: No Current occupational status: employed and other 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 Current occupational exposures/hazards: No Cognitive needs: Yes (has trouble with memory ) Hearing needs: Yes (has hearing aids) Vision needs: No Social History: Patient lives by himself he has a long-time girlfriend with whom he spends a significant amount of time he has adult children and grandchildren with whom he spends time with many times a week he has siblings that he is close to in spends time with 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
--- OUTSIDE RECORDS SUMMARY | 2024-07-23 11:13 | XMS_ITS | Clinical Summary ---
Author Organization [facility] Address [address] [place] [address] Care Team Providers Care Trade Show Manager Name Role Phone Unavailable Primary Care Provider Unavailabl e Allergies Active Allergy Reactions Criticality Noted Date Comments Penicillin V Anaphylaxis High 09/08/2021 Medications atorvastatin (LIPITOR) 20 MG tablet Take 20 [...] a day. Active benzonatate (TESSALON) 200 MG capsuleIndicati ons:Viral URI with cough Take 1 capsule (200 mg total) by mouth 3 (three) times a day as needed for cough. 20 capsule 09/08/2021 Active proMETHAZINE-de xtromethorphan (proMETHAZINE-D M) 6.25-15 MG/5ML syrupIndication s:Viral URI with cough Take 5 mL by mouth 4 times daily (every 6 hours) as needed for cough. 120 mL 09/08/2021 Active Active Problems No known active problems Social History Tobacco Use Types Packs/Day Years Used Date Smoking Tobacco: Never Assessed Sex and Gender Information Value Date Recorded Sex Assigned at Not on file Legal Sex Male 8:03 AM EDT Gender Identity Not on file Sexual Orientation [...] Zoster (Shingles) Vaccine (1 of 2) 2000 COVID-19 Vaccine ( - 2023-2 5 season) 2023 Influenza Vaccine 10/09/2024 RSV Vaccine 60 years and old er and Patients (1 - 1-dose 75+ series) 2025 Hepatitis B Vaccines Aged Out No long er eligible based on patient's age to complete this topic Insurance [facility] MED[facility] PART A & B
== END 2024-07-23 10:58 | disposition home or self-care (01) ==
LOC: HO.HOP 10:14
PROVIDERS: PCP Family Medicine; Visit Provider Clinical Nurse Specialist Psychiatric/Mental Health
DX: F32.1 Major depressive disorder, single episode, moderate (principal); F41.1 Generalized anxiety disorder
CPT/HCPCS: 99214

== ENCOUNTER → 2024-07-23 10:14 | Outpatient (BNVA) | payer MEDICARE, SELFPAY | PROVIDERS: PCP Family Medicine; Visit Provider Clinical Nurse Specialist Psychiatric/Mental Health | DX: F32.1 Major depressive disorder, single episode, moderate (principal); F41.1 Generalized anxiety disorder; Z71.89 Other specified counseling; Z79.899 Other long term (current) drug therapy | CPT/HCPCS: 99212 ==

== ENCOUNTER 2024-08-21 08:41 | Outpatient (AMB) | payer MEDICARE, SELFPAY ==
--- OUTSIDE RECORDS SUMMARY | 2024-08-21 08:53 | XMS_ITS | Clinical Summary ---
Author Organization [facility] Address [address] [place] [address] Care Team Providers Care Hairspring Studder Name Role Phone Unavailable Primary Care Provider [...] patient's age to complete this topic Insurance [facility] MEDIC[facility] PART A & B
--- NOTE | 2024-08-21 09:00 | MHC.PC.OV ---
Vital Signs 08/21/24 09:03 Height 5 ft 5 in Weight 159 lb 4 oz BMI 26.5 BP 110/70 Blood Pressure Location Rt brachial Position Sitting Respiration 14 Pulse 66 Pulse Source Pulse Oximeter Temp 97.7 F Temp Source Oral Pulse Oximetry (%) 97 Oxygen Delivery Method Room Air Intake Visit Reasons: f/u sleep apnea, chronic conditions Intake Note: patient is scheduled to follow up for chronic conditions Behavioral Medical Director Required: No Allergies penicillamine Allergy (Intermediate, Verified 08/21/24 09:02) respiratory as child Penicillins Allergy (Verified 08/21/24 09:02) Respiratory problems as infant Medication List - Last Reconciled 08/21/24 by Joshua Nicole MD albuterol sulfate 90 mcg/actuation 2 puffs inhalation Q4-6H PRN atorvastatin 20 mg PO DAILY 90 days cetirizine (Zyrtec) 10 mg PO DAILY donepezil 10 mg PO BEDTIME 90 days finasteride 5 mg PO DAILY 90 days fluticasone propionate 50 mcg/actuation (Flonase Allergy Relief) 1 spray intranasal Q12H 30 days gabapentin 600 mg PO BEDTIME 90 days mirtazapine 7.5 mg PO BEDTIME [id number] 092-21-459-300 mcg (Centrum Silver Ultra Men's) 1 tab PO DAILY pantoprazole 40 mg PO DAILY 90 days polyethylene glycol 3350 (Miralax) 17 grams PO DAILY 14 days tamsulosin 0.8 mg (2 x 0.4 mg) PO DAILY 90 days Tobacco use date assessed: 08/16/23 Dental Screening Dental Screen Date: 04/11/23 HPI f/u sleep apnea, chronic conditions HPI Details Patient?presents?to?follow-up?pre?diabetes,?anxiety/depression, sleep?apnea?and?cognitive?changes He?is?followed?by?nutrition?Patton?who?has?started?mirtazapine.??He?says?this?is?helping?his?mood?and?helping?with?sleep. He?has?been?working?out?frequently?and?is?running?about?30?minutes?per?day Still?has?issues?with?his?memory?and?we?had?ordered?a?sleep?study?to?rule?out?sleep?apnea?as?1?of?the?underlying?causes?his?cognitive?changes. He?was?contacted?but?said?he?would?call?back?for?an?appointment?and?did?not?follow?through?on?this.??Still?wants?to?do?so.? Despite?some?improvements?in?depression?with?mirtazapine?and?also?exercise,?he?notes?that?his?anxiety?in?the?last?few?days?and?weeks?has?been?worse. He?has?an?upcoming?appointment?with?nutrition?Patton?from?[facility]?psych. A1c?was?5.5%?at?last?check.??He?notes?that?even?though?he?is?working?on?a?diet?lower?in?sugars?and?starches?and?exercising?daily,?his?morning?fasting?blood?sugars?which?his??checks,?have?been?up?around?121. A1c?today?is?5.9%. [facility] Medical History (Updated 08/21/24 @ 09:44 by Joshua Nicole MD) Squamous cell carcinoma, tongue border Surgical History History of tonsillectomy Family History (Updated 08/16/23 @ 14:09 by Elvia Corrales CMA) Mother Mental health disorder Daughter Celiac disease Unknown Celiac disease Social History Housing: House Alcohol intake: current Alcohol intake frequency: a few times a month Patient Tobacco Use Status: Former Tobacco user Tobacco use type: Cigarette Cigarette Packs Per Day: 1 e-Cigarette/Vaping Use: Never Used Second Hand Smoke Exposure: No service: No Current occupational status: employed and other 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 Current occupational exposures/hazards: No Cognitive needs: Yes (has trouble with memory ) Hearing needs: Yes (has hearing aids) Vision needs: No Questionnaire Thrive Questionnaire Date Thrive assessed: 05/19/24 I am a: Patient What is your living situation today?: I have a steady place to live Within the past 12 months, did the food you bought not last and you didn't have the money to get more?: Never true Within the past 12 months, did you worry whether your food would run out before you got money to buy more?: Never true Do you have trouble paying for medicines?: No Do you have trouble getting transportation to medical appointments?: No Do you have trouble paying your heating and electricity bill?: No Do you have trouble taking care of your child, family member or friend?: No Do you have trouble with day-to-day activities such as bathing, preparing meals, shopping, managing finances, etc.?: No Are you currently unemployed and looking for a job?: No Are you interested in more education?: No Please select the resources that you would like help with: None Currently or been in a relationship where the following occur: I choose not to answer THRIVE Score: 0 KALIE-7 AMB Questionnaire KALIE-7 Date KALIE - 7 assessed: 12/20/23 Source: Developed by Drs. Barry Marquez, Diane Dominguez, Chapito He and colleagues, with an educational bina from [employer]. Review of Systems Const Denies chills, Denies fatigue, Denies fever(s), Denies headache(s) and Denies weakness ENT Denies dizziness and Denies headache(s) Card Denies chest pain, Denies lightheadedness, Denies dyspnea and Denies other (Palpitations) Resp Denies cough, Denies dyspnea, Denies wheezing and Denies other ( shortness of breath) Musc Denies numbness and Denies tingling Neuro Denies dizziness, Denies headache(s), Denies numbness, Denies tingling, Denies paresthesias and Denies weakness Psych Reports anxiety and Denies depression Endo Denies fatigue Aller/Immun Denies wheezing Physical exam (Primary Care) Vital Signs: Last Vital Signs Temp 97.7 F 08/21/24 09:03 Pulse 66 08/21/24 09:03 Resp 14 08/21/24 09:03 BP 110/70 08/21/24 09:03 Pulse Ox 97 08/21/24 09:03 Oxygen Delivery Method Room Air 08/21/24 09:03 BMI result Body Mass Index 26.5 Tobacco/Smoking Status: Tobacco use Status Tobacco use date assessed 08/16/23 08/21/24 09:05 Patient Tobacco Use Status Former Tobacco user 08/21/24 09:05 Tobacco use type Cigarette 08/21/24 09:05 e-Cigarette/Vaping Use Never Used 08/21/24 09:05 Thrive Assessment: Date of Thrive Assessment Date Thrive assessed 05/19/24 08/21/24 09:05 Currently or been in a relationship where the following occur: I choose not to answer Const General: no acute distress and well developed Nutritional Appearance: well nourished Orientation/consciousness: patient oriented x3 HENMT Head: Yes normocephalic and Yes atraumatic Eyes General: appearance normal, both eyes and all related structures Pupils: Equal, round and reactive pupils present EOM: EOMs intact bilaterally Resp Effort & Inspection: normal respiratory effort Auscultation: clear to auscultation bilaterally Cardio Rate: regular rate Rhythm: regular rhythm Heart sounds: S1 normal heart sound present, S2 normal heart sound present, no gallops, no murmurs and no rubs Neuro General: patient oriented x3 and gait normal Cranial nerves: Yes Equal, round and reactive pupils present Psych Affect: Anxious affect present Coding Level of Care Code Est Pt Level 4 (84422) Diagnoses Major depressive disorder, single episode, moderate F32.1 KALIE (generalized anxiety disorder) F41.1 Pre-diabetes R73.03 Sleep apnea G47.30 Mild cognitive impairment G31.84 Neoplasm of uncertain behavior of skin D48.5 Vision changes H53.9 Assessment & Plan Assessment & Plan (1) Major depressive disorder, single episode, moderate: Code(s): F32.1 - Major depressive disorder, single episode, moderate Category: Medical Plan: Improved?with?mirtazapine?and?exercise Continue?current?medication?regimen Follow-up?with?psych?team (2) KALIE (generalized anxiety disorder): Code(s): F41.1 - Generalized anxiety disorder Category: Medical Plan: This?seems?to?have?recently?worsened Continue?current?medications?and?follow-up?with?the?psych?team?to?discuss?other?options. May?benefit?from?a?long-term?therapist (3) Pre-diabetes: Code(s): R73.03 - Prediabetes Category: Medical Plan: A1c?has?climbed?despite?decreasing?sugars?and?starches?and?increasing?exercise/activity A1c?now?5.9% Continue?working?at?healthy?diet?and?exercise We?will?continue?to?monitor (4) Sleep apnea: Code(s): G47.30 - Sleep apnea, unspecified Category: Medical Plan: Will?make?referral?to?Sleep?Medicine?again Encouraged?patient?to?follow?through (5) Mild cognitive impairment: Code(s): G31.84 - Mild cognitive impairment of uncertain or unknown etiology Category: Medical Plan: Ongoing?cognitive?impairment Referring?him?to?Sleep?Medicine He?is?followed?by?[facility]?psychiatric?consult?team He?is?followed?by?neuropsychiatry Can?continue?donepezil Encouraged?ongoing?activities, exercise?and socializing (6) Neoplasm of uncertain behavior of skin: Code(s): D48.5 - Neoplasm of uncertain behavior of skin Category: Medical Plan: Lesion?and?upper?left?cheek Possible?actinic?keratosis.??Possible?squamous?cell?carcinoma?of?the?skin. Referred?to?dermatology (7) Vision changes: Code(s): H53.9 - Unspecified visual disturbance Category: Medical Plan: At?end?of?visit,?patient?notes?mild?vision?changes.??He?will?see?an?employer relations representative. Orders: Referrals Sleep Medicine Referral G47.30 - Sleep apnea, unspecified Dermatology Referral D48.5 - Neoplasm of uncertain behavior of skin
[2024-08-21 09:03] VITALS: BP 110/70; PULSE 66; RESP 14; TEMP 36.5; O2SAT 97; BMI 26.5
== END 2024-08-21 09:43 | disposition home or self-care (01) ==
LOC: HO.HMCFM 08:42
PROVIDERS: PCP Family Medicine; Visit Provider Family Medicine
DX: F32.1 Major depressive disorder, single episode, moderate (principal); F41.1 Generalized anxiety disorder; R73.03 Prediabetes; G47.30 Sleep apnea, unspecified; G31.84 Mild cognitive impairment of uncertain or unknown etiology; D48.5 Neoplasm of uncertain behavior of skin; H53.9 Unspecified visual disturbance

== ENCOUNTER → 2024-08-21 08:41 | Outpatient (BNVA) | payer MEDICARE, SELFPAY | PROVIDERS: PCP Family Medicine; Visit Provider Family Medicine | DX: F32.1 Major depressive disorder, single episode, moderate (principal); F41.1 Generalized anxiety disorder; R73.03 Prediabetes; G47.30 Sleep apnea, unspecified; G31.84 Mild cognitive impairment of uncertain or unknown etiology; D48.5 Neoplasm of uncertain behavior of skin; H53.9 Unspecified visual disturbance | CPT/HCPCS: 83036; 99212 ==

== ENCOUNTER 2024-08-27 09:19 | Outpatient (AMB) | payer SELFPAY ==
--- NOTE | 2024-08-27 09:51 | A.OFFPSYCH_ITS ---
Intake Intake Visit Reasons: f/u consultation Quantitative Strategy Analyst Required: No Allergies penicillamine Allergy (Intermediate, Verified 08/21/24 09:02) respiratory as child Penicillins Allergy (Verified 08/21/24 09:02) Respiratory problems as infant Medication List - Last Reconciled 08/27/24 by Vero Atkinson APRN albuterol sulfate 90 mcg/actuation 2 puffs inhalation Q4-6H PRN atorvastatin 20 mg PO DAILY 90 days cetirizine (Zyrtec) 10 mg PO DAILY donepezil 10 mg PO BEDTIME 90 days finasteride 5 mg PO DAILY 90 days fluticasone propionate 50 mcg/actuation (Flonase Allergy Relief) 1 spray intranasal Q12H 30 days gabapentin 600 mg PO BEDTIME 90 days mirtazapine 7.5 mg PO BEDTIME [id number] 588-78-938-300 mcg (Centrum Silver Ultra Men's) 1 tab PO DAILY pantoprazole 40 mg PO DAILY 90 days polyethylene glycol 3350 (Miralax) 17 grams PO DAILY 14 days tamsulosin 0.8 mg (2 x 0.4 mg) PO DAILY 90 days HPI- Psychiatric Chief Complaint: f/u consultation HPI Narrative: pt here for follow up re: depression and anxiety; pt reports depression improved; tolerating remeron 7.5mg daily. sleeping well; reports anxiety is heightened; he has trouble asking for help with family re: staying organized. 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 he is running almost daily 30-50 minutes a day. He denies SI or HI. He does not want to increase the remeron due to am sleepiness. Past Psychiatric History: outpatient t with zoloft Subjective Subjective Subjective Medication Compliance: Yes Side effects from medications: No Review of Systems Medical Review of Systems: unchanged Mental Status Exam Mental Status Exam Patient Appearance: Well Grooomed and Appropriate Patient Orientation: Person, Place, Time and Situation Level of Consciousness: Awake, Appropriate and Alert Patient Behavior: Appropriate and Cooperative Mood Description: Anxious Affect Description: Anxious Patient Cognition Impaired: Yes Ability to Follow Directions: Good Speech Pattern: Clear, Appropriate and Coherent Memory Description: Intact (misplaces items) Hallucinations: None Delusions: Not Present Thought Process: Intact Thought Content: positive for Intact Judgement: Good Assessment and Plan Assessment & Plan (1) KALIE (generalized anxiety disorder): Status: Acute Code(s): F41.1 - Generalized anxiety disorder (2) Depression with anxiety: Status: Acute Code(s): F41.8 - Other specified anxiety disorders (3) Major depressive disorder, single episode, moderate: Status: Acute Code(s): F32.1 - Major depressive disorder, single episode, moderate (4) Suicidal ideations: Status: Acute Code(s): R45.851 - Suicidal ideations Plan depression improving; suicidal ideation remitted; anxiety continues agrees to trial of B6 which has shown some benefit fro anxiety continue remeron 7.5mg at bedtime stay hydrated increase protein and helath fat intake especially since running almost daily 4 miles + Medications: New pyridoxine (vitamin B6) 50 mg PO DAILY 90 tabs 0RF Refilled mirtazapine 7.5 mg PO BEDTIME 90 tabs 1RF Counseling and coordination of Care Pt. Self Management counseling: Exercise, Maintenance-social rhythm, Mod caffeine/ETOH intake, Nutrition education and improvement, Sleep hygiene and Behavior activation Medication management counseling: Effectiveness, Side effects, Dosing range, Duration, Drug interaction and Adherence Diagnosis and Prognosis Counseling: Accuracy of diagnosis, Prognosis over time, Impact of diagnosis on life functions, Impact of family relationship, Problematic behaviors secondary to diagnosis and Adequacy of current interventions Details: I spent 40 minutes reviewing the record, seeing the patient and documenting in the medical record. Counseling provided to the patient/caregiver as outlined below. Addressed patient/caregiver concerns regarding current medication regime including effective adherence. Addressed patient/caregiver concerns regarding diagnosis and prognosis including accuracy of diagnosis, prognosis over time, impact of diagnosis. Addressed patient/caregiver concerns regarding impact of recent stressors. [facility] Medical History (Updated 08/21/24 @ 09:44 by Joshua Nicole MD) Squamous cell carcinoma, tongue border Surgical History History of tonsillectomy Family History (Updated 08/16/23 @ 14:09 by Elvia Corrales CMA) Mother Mental health disorder Daughter Celiac disease Unknown Celiac disease Social History Housing: House Alcohol intake: current Alcohol intake frequency: a few times a month Patient Tobacco Use Status: Former Tobacco user Tobacco use type: Cigarette Cigarette Packs Per Day: 1 e-Cigarette/Vaping Use: Never Used Second Hand Smoke Exposure: No service: No Current occupational status: employed and other 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 Current occupational exposures/hazards: No Cognitive needs: Yes (has trouble with memory ) Hearing needs: Yes (has hearing aids) Vision needs: No Social History: Patient lives by himself he has a long-time girlfriend with whom he spends a significant amount of time he has adult children and grandchildren with whom he spends time with many times a week he has siblings that he is close to in spends time with 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
== END 2024-08-27 10:05 | disposition home or self-care (01) ==
LOC: HO.HOP 09:19
PROVIDERS: PCP Family Medicine; Visit Provider Clinical Nurse Specialist Psychiatric/Mental Health
DX: F41.1 Generalized anxiety disorder (principal); F41.8 Other specified anxiety disorders; F32.1 Major depressive disorder, single episode, moderate; R45.851 Suicidal ideations
CPT/HCPCS: 99214

== ENCOUNTER → 2024-08-27 09:19 | Outpatient (BNVA) | payer SELFPAY | PROVIDERS: PCP Family Medicine; Visit Provider Clinical Nurse Specialist Psychiatric/Mental Health | DX: F41.1 Generalized anxiety disorder (principal); F41.8 Other specified anxiety disorders; F32.1 Major depressive disorder, single episode, moderate; R45.851 Suicidal ideations | CPT/HCPCS: 99212 ==

== ENCOUNTER 2024-09-22 13:10 | Outpatient (AMB) | payer MEDICARE, SELFPAY ==
--- NOTE | 2024-09-22 13:12 | A.OFFPSYCH_ITS ---
Intake Intake Visit Reasons: f/u consultation Lab Assistant Required: No Allergies penicillamine Allergy (Intermediate, Verified 08/21/24 09:02) respiratory as child Penicillins Allergy (Verified 08/21/24 09:02) Respiratory problems as infant Medication List - Last Reconciled 09/22/24 by Vero Atkinson APRN albuterol sulfate 90 mcg/actuation 2 puffs inhalation Q4-6H PRN atorvastatin 20 mg PO DAILY 90 days cetirizine (Zyrtec) 10 mg PO DAILY donepezil 10 mg PO BEDTIME 90 days finasteride 5 mg PO DAILY 90 days fluticasone propionate 50 mcg/actuation (Flonase Allergy Relief) 1 spray intranasal Q12H 30 days gabapentin 600 mg PO BEDTIME 90 days mirtazapine 7.5 mg PO BEDTIME [id number] 425-97-848-300 mcg (Centrum Silver Ultra Men's) 1 tab PO DAILY pantoprazole 40 mg PO DAILY 90 days polyethylene glycol 3350 (Miralax) 17 grams PO DAILY 14 days pyridoxine (vitamin B6) 50 mg PO DAILY tamsulosin 0.8 mg (2 x 0.4 mg) PO DAILY 90 days HPI- Psychiatric Chief Complaint: f/u consultation HPI Narrative: pt here for follow up re: depression and anxiety; pt reports depression improved; tolerating remeron 7.5mg daily. sleeping well; reports anxiety is heightened; he has trouble asking for help with family re: staying organized. 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 he is running almost daily 30-50 minutes a day. He denies SI or HI. He does not want to increase the remeron due to am sleepiness. Past Psychiatric History: outpatient t with zoloft Subjective Subjective Subjective Medication Compliance: Yes Side effects from medications: No Review of Systems Medical Review of Systems: unchanged Mental Status Exam Mental Status Exam Patient Appearance: Well Grooomed and Appropriate Patient Orientation: Person, Place, Time and Situation Level of Consciousness: Awake, Appropriate and Alert Patient Behavior: Appropriate and Cooperative Mood Description: Anxious Affect Description: Anxious Patient Cognition Impaired: Yes Ability to Follow Directions: Good Speech Pattern: Clear, Appropriate and Coherent Memory Description: Intact (misplaces items) Hallucinations: None Delusions: Not Present Thought Process: Intact Thought Content: positive for Intact Judgement: Good Assessment and Plan Assessment & Plan (1) KALIE (generalized anxiety disorder): Status: Acute Code(s): F41.1 - Generalized anxiety disorder (2) Depression with anxiety: Status: Acute Code(s): F41.8 - Other specified anxiety disorders (3) Major depressive disorder, single episode, moderate: Status: Acute Code(s): F32.1 - Major depressive disorder, single episode, moderate (4) Suicidal ideations: Status: Acute Code(s): R45.851 - Suicidal ideations Plan depression improving; suicidal ideation remitted; anxiety continues start buspar 5mg tabs take 1/2 tab BID x 10 days then take 1 tab BID take B50 Complex daily continue remeron 7.5mg at bedtime stay hydrated increase protein and healthy fat intake especially since running almost daily 4 miles + follow up in 6-8 weeks Medications: New buspirone Take 1/2 tablet twice a day for 6 days then take 1 tablet twice a day; stay hydrated 5 mg PO BID 60 tabs 0RF Counseling and coordination of Care Pt. Self Management counseling: Exercise, Maintenance-social rhythm, Mod caffeine/ETOH intake, Nutrition education and improvement, Sleep hygiene and Behavior activation Medication management counseling: Effectiveness, Side effects, Dosing range, Duration, Drug interaction and Adherence Diagnosis and Prognosis Counseling: Accuracy of diagnosis, Prognosis over time, Impact of diagnosis on life functions, Impact of family relationship, Problematic behaviors secondary to diagnosis and Adequacy of current interventions Details: I spent 45 minutes reviewing the record, seeing the patient and documenting in the medical record. Counseling provided to the patient/caregiver as outlined below. Addressed patient/caregiver concerns regarding current medication regime including effective adherence. Addressed patient/caregiver concerns regarding diagnosis and prognosis including accuracy of diagnosis, prognosis over time, impact of diagnosis. Addressed patient/caregiver concerns regarding impact of recent stressors. [facility] Medical History (Updated 08/21/24 @ 09:44 by Joshua Nicole MD) Squamous cell carcinoma, tongue border Surgical History History of tonsillectomy Family History (Updated 08/16/23 @ 14:09 by Elvia Corrales CMA) Mother Mental health disorder Daughter Celiac disease Unknown Celiac disease Social History Housing: House Alcohol intake: current Alcohol intake frequency: a few times a month Patient Tobacco Use Status: Former Tobacco user Tobacco use type: Cigarette Cigarette Packs Per Day: 1 e-Cigarette/Vaping Use: Never Used Second Hand Smoke Exposure: No service: No Current occupational status: employed and other 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 Current occupational exposures/hazards: No Cognitive needs: Yes (has trouble with memory ) Hearing needs: Yes (has hearing aids) Vision needs: No Social History: Patient lives by himself he has a long-time girlfriend with whom he spends a significant amount of time he has adult children and grandchildren with whom he spends time with many times a week he has siblings that he is close to in spends time with 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
--- OUTSIDE RECORDS SUMMARY | 2024-09-22 14:30 | XMS_ITS | Clinical Summary ---
Author Organization [facility] Address [address] [place] [address] Care Team Providers Care Metal Bench Patternmaker Name Role Phone Unavailable Primary Care Provider [...] 100 09/08/2021 8:16 AM EDT Temperature 36.6 C (97.9 F) 09/08/2021 8:16 AM EDT Respiratory Rate - - Oxygen Saturation 97% [...] patient's age to complete this topic Insurance [facility] MEDICARE PART A & B
--- OUTSIDE RECORDS SUMMARY | 2024-09-22 14:30 | XMS_ITS ---
Author Name [facility] Organization Unknown Encounters Encounter Type Encounter Reason Primary Diagnosis Location Date Ambulatory Acute upper respiratory infection, unspecified [employer] 09/08/2021 Care Team Organization Name Specialty Phone Email Start Date End [facility] [employer] 09/08/2021 09/08/2021 [employer] 09/08/2021
== END 2024-09-22 13:44 | disposition home or self-care (01) ==
LOC: HO.HOP 13:10
PROVIDERS: PCP Family Medicine; Visit Provider Clinical Nurse Specialist Psychiatric/Mental Health
DX: F41.1 Generalized anxiety disorder (principal); F41.8 Other specified anxiety disorders; F32.1 Major depressive disorder, single episode, moderate; R45.851 Suicidal ideations
CPT/HCPCS: 90833; 99213

== ENCOUNTER → 2024-09-22 13:10 | Outpatient (BNVA) | payer MEDICARE, SELFPAY | PROVIDERS: PCP Family Medicine; Visit Provider Clinical Nurse Specialist Psychiatric/Mental Health | DX: Z71.89 Other specified counseling (principal); F41.1 Generalized anxiety disorder; F41.8 Other specified anxiety disorders; F32.1 Major depressive disorder, single episode, moderate; R45.851 Suicidal ideations; Z79.899 Other long term (current) drug therapy | CPT/HCPCS: 99212 ==

== ENCOUNTER 2024-11-26 08:25 | Outpatient (AMB) | payer MEDICARE, SELFPAY ==
--- NOTE | 2024-11-26 08:27 | A.OFFPC_ITS ---
Vital Signs 11/26/24 08:38 Height 5 ft 5 in Weight 158 lb 2 oz BMI 26.3 BP 111/74 Blood Pressure Location Rt brachial Position Sitting Respiration 16 Pulse 72 Pulse Source Pulse Oximeter Temp 97.6 F Temp Source Oral Pulse Oximetry (%) 99 Oxygen Delivery Method Room Air Intake Visit Reasons: f/u pre diabetes, cognitive changes, sleep apnea Intake Note: patient here for follow up on pre DM, cognitive changes, and sleep apnea Phlebotomist Associate Required: No Allergies penicillamine Allergy (Intermediate, Verified 11/26/24 08:30) respiratory as child Penicillins Allergy (Verified 11/26/24 08:30) Respiratory problems as infant Medication List - Last Reconciled 11/26/24 by Joshua Nicole MD albuterol sulfate 90 mcg/actuation 2 puffs inhalation Q4-6H PRN atorvastatin 20 mg PO DAILY 90 days buspirone 5 mg PO BID cetirizine (Zyrtec) 10 mg PO DAILY donepezil 10 mg PO BEDTIME 90 days finasteride 5 mg PO DAILY 90 days fluticasone propionate 50 mcg/actuation (Flonase Allergy Relief) 1 spray intranasal Q12H 30 days gabapentin 600 mg PO BEDTIME 90 days mirtazapine 7.5 mg PO BEDTIME [id number] 175-25-294-300 mcg (Centrum Silver Ultra Men's) 1 tab PO DAILY pantoprazole 40 mg PO DAILY 90 days polyethylene glycol 3350 (Miralax) 17 grams PO DAILY 14 days pyridoxine (vitamin B6) 50 mg PO DAILY tamsulosin 0.8 mg (2 x 0.4 mg) PO DAILY 90 days Tobacco use date assessed: 11/26/24 Fall risk assessment: No Falls in past year Last assessed Fall Risk: 11/26/24 Dental Screening Dental Screen Date: 11/26/24 Did you have a dental visit in the last 12 months?: Yes Did you have a dental problem in the last 6 months where you did not have access to dental care?: No Was dental information given to patient?: Patient has dentist HPI f/u pre diabetes, cognitive changes, sleep apnea HPI Details 74 y/o male presents to f/u pre-diabetes , cognitive changes, sleep apnea, anxiety/depression. Last A1c 08/21/24 5.9%. A1c today 11/26/24 6.0%. Had made a sleep medicine referral in August. Continues to f/u with Vero Atkinson for his depression/anxiety. Reports ongoing lightheadedness which he notes has been contributing towards his depression and anxiety. HPI Comments History of Present Illness Details Documentation assistance for Joshua Nicole MD, was provided by [employer],? Baked Goods Stock Clerk on at 8:50 AM EST. I, Dr. Nicole, have read, observed, and verified documentation. ?? [facility] Medical History (Updated 08/21/24 @ 09:44 by Joshua Nicole MD) Squamous cell carcinoma, tongue border Surgical History History of tonsillectomy Family History (Updated 08/16/23 @ 14:09 by Elvia Corrales [facility]) Mother Mental health disorder Daughter Celiac disease Unknown Celiac disease Social History Housing: House Alcohol intake: current Alcohol intake frequency: a few times a month Patient Tobacco Use Status: Former Tobacco user Tobacco use type: Cigarette Cigarette Packs Per Day: 1 e-Cigarette/Vaping Use: Never Used Second Hand Smoke Exposure: No service: No Current occupational status: employed and other 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 Current occupational exposures/hazards: No Cognitive needs: Yes (has trouble with memory ) Hearing needs: Yes (has hearing aids) Vision needs: No Questionnaire Thrive Questionnaire Date Thrive assessed: 05/19/24 I am a: Patient What is your living situation today?: I have a steady place to live Within the past 12 months, did the food you bought not last and you didn't have the money to get more?: Never true Within the past 12 months, did you worry whether your food would run out before you got money to buy more?: Never true Do you have trouble paying for medicines?: No Do you have trouble getting transportation to medical appointments?: No Do you have trouble paying your heating and electricity bill?: No Do you have trouble taking care of your child, family member or friend?: No Do you have trouble with day-to-day activities such as bathing, preparing meals, shopping, managing finances, etc.?: No Are you currently unemployed and looking for a job?: No Are you interested in more education?: No Please select the resources that you would like help with: None Currently or been in a relationship where the following occur: I choose not to answer THRIVE Score: 0 KALIE-7 AMB Questionnaire KALIE-7 Date KALIE - 7 assessed: 12/20/23 Source: Developed by Drs. Barry Marquez, Diane Dominguez, Chapito He and colleagues, with an educational bina from [employer]. Review of Systems Const Denies chills, Denies fatigue, Denies fever(s), Denies headache(s) and Denies weakness ENT Denies dizziness and Denies headache(s) Card Denies dyspnea Resp Denies cough, Denies dyspnea, Denies wheezing and Denies other (shortness of breath) Musc Denies numbness and Denies tingling Neuro Denies dizziness, Denies headache(s), Denies numbness, Denies tingling and Denies weakness Psych Denies anxiety and Denies depression Endo Denies fatigue Aller/Immun Denies wheezing Physical exam (Primary Care) Vital Signs: Last Vital Signs Temp 97.6 F 11/26/24 08:38 Pulse 72 11/26/24 08:38 Resp 16 11/26/24 08:38 BP 111/74 11/26/24 08:38 Pulse Ox 99 11/26/24 08:38 Oxygen Delivery Method Room Air 11/26/24 08:38 BMI result Body Mass Index 26.3 Tobacco/Smoking Status: Tobacco use Status Tobacco use date assessed 11/26/24 11/26/24 08:34 Patient Tobacco Use Status Former Tobacco user 11/26/24 08:29 Tobacco use type Cigarette 11/26/24 08:29 e-Cigarette/Vaping Use Never Used 11/26/24 08:29 Thrive Assessment: Date of Thrive Assessment Date Thrive assessed 05/19/24 11/26/24 08:29 Currently or been in a relationship where the following occur: I choose not to answer Const General: well developed; No acute distress Nutritional Appearance: well nourished Orientation/consciousness: patient oriented x3 HENMT Head: Yes normocephalic and Yes atraumatic Eyes General: appearance normal, both eyes and all related structures Pupils: Equal, round and reactive pupils present EOM: EOMs intact bilaterally Resp Effort & Inspection: normal respiratory effort Neuro General: patient oriented x3 and gait normal Cranial nerves: Yes Equal, round and reactive pupils present Psych Affect: normal affect Coding Level of Care Code Est Pt Level 4 (14271) Diagnoses Pre-diabetes R73.03 Depression with anxiety F41.8 Mild cognitive impairment G31.84 Sleep apnea G47.30 Lightheadedness R42 Assessment & Plan Assessment & Plan (1) Pre-diabetes: Code(s): R73.03 - Prediabetes Category: Medical Plan: A1c 6.0% which is up slightly from 5.9% at last check. Pre diabetes range Encouraged diet low in sugars and starches Continue exercise and maintain good weight control (2) Depression with anxiety: Code(s): F41.8 - Other specified anxiety disorders Category: Medical Plan: Ongoing depression and anxiety Followed by Vero Patton Continue current medication regimen (3) Mild cognitive impairment: Code(s): G31.84 - Mild cognitive impairment of uncertain or unknown etiology Category: Medical Plan: Ongoing/worsening memory issues Can continue donepezil Use memory devices and aids Continue memory exercises (4) Sleep apnea: Code(s): G47.30 - Sleep apnea, unspecified Category: Medical Plan: History of sleep apnea and this could contribute to his cognitive decline Referred to Sleep Medicine (5) Lightheadedness: Code(s): R42 - Dizziness and giddiness Category: Medical Plan: Patient notices some lightheadedness and orthostasis Is occurs primarily in the morning when he is waking up He is taking tamsulosin 0.8 mg daily He will try decreasing dose to see if this affects his symptoms. Resume in no effect. Otherwise discuss with your urologist May need a referral to neurology
[2024-11-26 08:38] VITALS: BP 111/74; PULSE 72; RESP 16; TEMP 36.4; O2SAT 99; BMI 26.3
--- OUTSIDE RECORDS SUMMARY | 2024-11-26 09:31 | XMS_ITS | Clinical Summary ---
Author Organization [facility] Address [address] [place] [address] Care Team Providers Care Plate Colorer Name Role Phone Unavailable Primary Care Provider [...] Health Maintenance Due Date Last Done Comments Advance Care Planning 1950 Hepatitis C Virus Screening 1950 DTaP/Tdap/Td Vaccines (1 - Tdap) 1969 Colonoscopy 11/05/1995 Pneumococcal Vaccines 50+ (1 of 1 - PCV) 2000 Zoster (Shingles) Vaccine (1 of 2) 2000 Influenza Vaccine 10/09/2024 COVID-19 Vaccine (1 - 2023-2 5 season) 2024 RSV Vaccine 60 years and old er and Patients (1 - 1-dose 75+ series) 2025 Hepatitis B Vaccines Aged Out No long er eligible based on patient's age to complete this topic Insurance [facility] MEDICARE PART A & B
== END 2024-11-26 09:21 | disposition home or self-care (01) ==
LOC: HO.HMCFM 08:26
PROVIDERS: PCP Family Medicine; Visit Provider Family Medicine
DX: R73.03 Prediabetes (principal); F41.8 Other specified anxiety disorders; G31.84 Mild cognitive impairment of uncertain or unknown etiology; G47.30 Sleep apnea, unspecified; R42 Dizziness and giddiness; Z13.9 Encounter for screening, unspecified

== ENCOUNTER → 2024-11-26 08:25 | Outpatient (BNVA) | payer MEDICARE, SELFPAY | PROVIDERS: PCP Family Medicine; Visit Provider Family Medicine | DX: R73.03 Prediabetes (principal); G47.30 Sleep apnea, unspecified; F41.8 Other specified anxiety disorders; G31.84 Mild cognitive impairment of uncertain or unknown etiology; R42 Dizziness and giddiness | CPT/HCPCS: 83036; 99212 ==

== ENCOUNTER 2025-02-11 11:07 | Outpatient (AMB) | payer MEDICARE, SELFPAY ==
--- NOTE | 2025-02-11 11:13 | MHC.OFFVISPS ---
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 Required: No Allergies penicillamine Allergy (Intermediate, Verified 11/26/24 08:30) respiratory as child Penicillins Allergy (Verified 11/26/24 08:30) Respiratory problems as infant Medication List - Last Reconciled 02/11/25 by Vero Atkinson APRN albuterol sulfate 90 mcg/actuation 2 puffs inhalation Q4-6H PRN atorvastatin 20 mg PO DAILY 90 days buspirone 5 mg PO BID cetirizine (Zyrtec) 10 mg PO DAILY donepezil 10 mg PO BEDTIME 90 days finasteride 5 mg PO DAILY 90 days fluticasone propionate 50 mcg/actuation (Flonase Allergy Relief) 1 spray intranasal Q12H 30 days gabapentin 600 mg PO BEDTIME 90 days mirtazapine 7.5 mg PO BEDTIME [id number] 302-35-174-300 mcg (Centrum Silver Ultra Men's) 1 tab PO DAILY pantoprazole 40 mg PO DAILY 90 days polyethylene glycol 3350 (Miralax) 17 grams PO DAILY 14 days pyridoxine (vitamin B6) 50 mg PO DAILY tamsulosin 0.8 mg (2 x 0.4 mg) PO DAILY 90 days HPI- Psychiatric Chief Complaint: f/u consultation HPI Narrative: pt here for follow up re: depression and anxiety; pt reports he still has some depression. He does fel the remeron helps his mood and sleep. He had trouble with increasing it due to feeling tired during the day. reports anxiety is a little better with buspar but still bothersome; he has trouble asking for help with family re: staying organized. 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 he is running almost daily 35-45 minutes a day. He denies SI or HI. From his description of his history and his long time traits, he likely has had lifelong ADHD which in contributing to his memory difficulties and mood symptoms; we discussed adding wellbutrin and he is open to trial. No history of seizures. no HTN no cardiac disease. He is eating and staying hydrated. Past Psychiatric History: outpatient t with zoloft Subjective Subjective Medication Compliance: Yes Side effects from medications: No Review of Systems Medical Review of Systems: unchanged Mental Status Exam Mental Status Exam Patient Appearance: Well Grooomed and Appropriate Patient Orientation: Person, Place, Time and Situation Level of Consciousness: Awake, Appropriate and Alert Patient Behavior: Appropriate and Cooperative Mood Description: Anxious Affect Description: Anxious Patient Cognition Impaired: Yes Ability to Follow Directions: Good Speech Pattern: Clear, Appropriate and Coherent Memory Description: Intact (misplaces items) Hallucinations: None Delusions: Not Present Thought Process: Intact Thought Content: positive for Intact Judgement: Good Assessment and Plan Assessment & Plan (1) KALIE (generalized anxiety disorder): Status: Acute Code(s): F41.1 - Generalized anxiety disorder (2) Depression with anxiety: Status: Acute Code(s): F41.8 - Other specified anxiety disorders (3) Major depressive disorder, single episode, moderate: Status: Acute Code(s): F32.1 - Major depressive disorder, single episode, moderate (4) Suicidal ideations: Status: Acute Code(s): R45.851 - Suicidal ideations Plan depression improving; suicidal ideation remitted; anxiety continues continue buspar 5mg BID take B50 Complex daily continue remeron 7.5mg at bedtime trial of wellbutrin XL 150mg daily in am stay hydrated increase protein and healthy fat intake especially since running almost daily 4 miles + follow up in 6-8 weeks Medications: New bupropion HCl XL (Wellbutrin XL) 150 mg PO QAM 30 tabs 2RF Refilled buspirone Take 1 tablet twice a day; stay hydrated/drink plenty of fluids 5 mg PO BID 180 tabs 1RF Counseling and coordination of Care Pt. Self Management counseling: Exercise, Maintenance-social rhythm, Mod caffeine/ETOH intake, Nutrition education and improvement, Sleep hygiene and Behavior activation Medication management counseling: Effectiveness, Side effects, Dosing range, Duration, Drug interaction and Adherence Diagnosis and Prognosis Counseling: Accuracy of diagnosis, Prognosis over time, Impact of diagnosis on life functions, Impact of family relationship, Problematic behaviors secondary to diagnosis and Adequacy of current interventions Details: I spent 40 minutes reviewing the record, seeing the patient and documenting in the medical record. Counseling provided to the patient/caregiver as outlined below. Addressed patient/caregiver concerns regarding current medication regime including effective adherence. Addressed patient/caregiver concerns regarding diagnosis and prognosis including accuracy of diagnosis, prognosis over time, impact of diagnosis. Addressed patient/caregiver concerns regarding impact of recent stressors. [facility] Medical History (Updated 08/21/24 @ 09:44 by Joshua Nicole MD) Squamous cell carcinoma, tongue border Surgical History History of tonsillectomy Family History (Updated 08/16/23 @ 14:09 by Elvia Corrales [facility]) Mother Mental health disorder Daughter Celiac disease Unknown Celiac disease Social History Housing: House Alcohol intake: current Alcohol intake frequency: a few times a month Patient Tobacco Use Status: Former Tobacco user Tobacco use type: Cigarette Cigarette Packs Per Day: 1 e-Cigarette/Vaping Use: Never Used Second Hand Smoke Exposure: No service: No Current occupational status: employed and other 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 Current occupational exposures/hazards: No Cognitive needs: Yes (has trouble with memory ) Hearing needs: Yes (has hearing aids) Vision needs: No Social History: Patient lives by himself he has a long-time girlfriend with whom he spends a significant amount of time he has adult children and grandchildren with whom he spends time with many times a week he has siblings that he is close to in spends time with 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
== END 2025-02-11 11:43 | disposition home or self-care (01) ==
LOC: HO.HOP 11:07
PROVIDERS: PCP Family Medicine; Visit Provider Clinical Nurse Specialist Psychiatric/Mental Health
DX: F41.1 Generalized anxiety disorder (principal); F41.8 Other specified anxiety disorders; F32.1 Major depressive disorder, single episode, moderate; R45.851 Suicidal ideations
CPT/HCPCS: 99214

== ENCOUNTER → 2025-02-11 11:07 | Outpatient (BNVA) | payer MEDICARE, SELFPAY | PROVIDERS: PCP Family Medicine; Visit Provider Clinical Nurse Specialist Psychiatric/Mental Health | DX: F41.1 Generalized anxiety disorder (principal); F41.8 Other specified anxiety disorders; F32.1 Major depressive disorder, single episode, moderate; R45.851 Suicidal ideations | CPT/HCPCS: 99212 ==